=== PATIENT | female | born 1955 | race Caucasian/White ===

== ENCOUNTER 2017-11-29 13:08 | Emergency (ER) | payer BC ==
[2017-11-29 13:38] VITALS: RESP 18
[2017-11-29] MEDS ORDERED: SODIUM CHLORIDE 0.9% 1,000 ML IV ONE (14:16)
--- NOTE | 2017-11-29 14:19 | ED ---
General Adult HPI - General Chief complaint: Altered Mental Status Stated complaint: headache, short term memory Time Seen by Provider: 11/29/17 14:05 Source: patient, family, RN notes reviewed Mode of arrival: ambulatory Limitations: no limitations - History of Present Illness Initial comments: Patient is a pleasant 62-year-old female presenting to the emergency Department with concerns regarding her memory. Patient has been dealing with a headache close to one month. Headache was gradual onset over a couple of days. Headache is moderate to severe. Headache starts in the back and wraps around to the front on both sides. No nausea vomiting. No weakness. Patient has been more forgetful recently. At one point around a month ago patient became very forgetful and they were concerned she may have had a TIA. Patient does not recall the episode. During another episode 2 days ago patient had decreased responsiveness. Patient's eyes were open however she would not talk or answer questions. - Related Data Home Medications Medication Instructions Recorded Confirmed Calcium Carbonate [Calcium] 600 mg PO DAILY 11/29/17 11/29/17 Ferrous Sulfate [Feosol] 325 mg PO DAILY 11/29/17 11/29/17 Multivitamins, Thera [Multivitamin 1 tab PO DAILY 11/29/17 11/29/17 (formulary)] Vitamin C/Biotin [Hair, Skin and 1 tab PO DAILY 11/29/17 11/29/17 Nails] Allergies Allergy/AdvReac Type Severity Reaction Status Date / Time No Known Allergies Allergy Verified 11/29/17 14:18 Review of Systems ROS Statement: Those systems with pertinent positive or pertinent negative responses have been documented in the HPI. ROS Other: All systems not noted in ROS Statement are negative. Constitutional: Denies: fever Eyes: Denies: eye pain ENT: Denies: ear pain Respiratory: Denies: cough Cardiovascular: Denies: chest pain Endocrine: Denies: fatigue Gastrointestinal: Denies: abdominal pain Genitourinary: Denies: dysuria Musculoskeletal: Denies: back pain Skin: Denies: rash Neurological: Reports: headache, confusion. Denies: weakness Past Medical History Past Medical History: No Reported History History of Any Multi-Drug Resistant Organisms: None Reported Past Surgical History: No Surgical Hx Reported Past Psychological History: No Psychological Hx Reported Smoking Status: Never smoker Past Alcohol Use History: Occasional Past Drug Use History: None Reported General Exam Limitations: no limitations General appearance: alert, in no apparent distress Head exam: Present: atraumatic Eye exam: Present: normal appearance, PERRL, EOMI. Absent: nystagmus ENT exam: Present: normal oropharynx Neck exam: Present: normal inspection Respiratory exam: Present: normal lung sounds bilaterally Cardiovascular Exam: Present: regular rate, normal rhythm GI/Abdominal exam: Present: soft. Absent: tenderness Extremities exam: Present: normal inspection Neurological exam: Present: alert, oriented X3, CN II-XII intact. Absent: motor sensory deficit Expanded Neurological exam: Present: protecting the airway Patient oriented to: Present: person, place, time Speech: Present: fluid speech Cranial nerves: EOM's Intact: Normal, Facial Sensation: Normal Cerebellar function: Finger to Nose: Normal Sensory exam: Upper Extremity Light Touch: Normal, Lower Extremity Light Touch: Normal Motor strength exam: RUE: 5, LUE: 5, RLE: 5, LLE: 5 Eye Response: (4) open spontaneously Motor Response: (6) obeys commands Verbal Response: (5) oriented Psychiatric exam: Present: normal affect, normal mood Skin exam: Present: normal color Course Vital Signs 11/29/17 11/29/17 13:33 15:44 Temperature 98.1 F 97.5 F L Pulse Rate 91 81 Respiratory 18 18 Rate Blood Pressure 143/87 137/73 O2 Sat by Pulse 100 98 Oximetry - Reevaluation(s) Reevaluation #1: 11/29/17 15:36 Case was discussed in detail with Dr. Sr who does recommend Decadron and 25 g of mannitol and transfer. EKG Findings - EKG Comments: EKG Findings:: Normal sinus rhythm 84. AL 140. QRS 70. QT 358. QTC 423. Normal axis. Normal QRS. No acute ST change. Medical Decision Making - Medical Decision Making Patient reevaluated. Patient and family updated. Case was just with Dr. Hurley who does recommend transfer for neurosurgery evaluation. He recommends Decadron and 25 of mannitol. Family does request [facility]. [facility] - Lab Data Result diagrams: 11/29/17 13:50 11/29/17 13:50 Lab Results 11/29/17 11/29/17 11/29/17 Range/Units 13:50 13:50 13:50 WBC 9.4 (3.8-10.6) k/uL RBC 4.38 (3.80-5.40) m/uL Hgb 13.6 (11.4-16.0) gm/dL Hct 41.7 (34.0-46.0) % MCV 95.3 (80.0-100.0) fL MCH 31.0 (25.0-35.0) pg MCHC 32.5 (31.0-37.0) g/dL RDW 12.6 (11.5-15.5) % Plt Count 228 (150-450) k/uL Neutrophils % 76 % Lymphocytes % 16 % Monocytes % 5 % Eosinophils % 1 % Basophils % 1 % Neutrophils # 7.2 (1.3-7.7) k/uL Lymphocytes # 1.5 (1.0-4.8) k/uL Monocytes # 0.4 (0-1.0) k/uL Eosinophils # 0.1 (0-0.7) k/uL Basophils # 0.1 (0-0.2) k/uL PT (9.0-12.0) sec INR (<1.2) APTT (22.0-30.0) sec Sodium 139 (137-145) mmol/L Potassium 4.6 (3.5-5.1) mmol/L Chloride 107 (98-107) mmol/L Carbon Dioxide 26 (22-30) mmol/L Anion Gap 6 mmol/L BUN 14 (7-17) mg/dL Creatinine 0.63 (0.52-1.04) mg/dL Est GFR (CKD-EPI)AfAm >90 (>60 ml/min/1.73 sqM) Est GFR (CKD-EPI)NonAf >90 (>60 ml/min/1.73 sqM) Glucose 100 H (74-99) mg/dL POC Glucose (mg/dL) (75-99) mg/dL POC Glu Hop Strainer ID Calcium 9.1 (8.4-10.2) mg/dL Total Bilirubin 0.2 (0.2-1.3) mg/dL AST 26 (14-36) U/L ALT 18 (9-52) U/L Alkaline Phosphatase 48 (38-126) U/L Total Creatine Kinase 50 (30-135) U/L CK-MB (CK-2) 0.5 (0.0-2.4) ng/mL CK-MB (CK-2) Rel Index 1.0 Troponin I <0.012 (0.000-0.034) ng/mL Total Protein 5.9 L (6.3-8.2) g/dL Albumin 3.4 L (3.5-5.0) g/dL Urine Color Urine Appearance (Clear) Urine pH (5.0-8.0) Ur Specific [place] (1.001-1.035) Urine Protein (Negative) Urine Glucose (UA) (Negative) Urine Ketones (Negative) Urine Blood (Negative) Urine Nitrite (Negative) Urine Bilirubin (Negative) Urine Urobilinogen (<2.0) mg/dL Ur Leukocyte Esterase (Negative) Urine WBC (0-5) /hpf Urine Bacteria (None) /hpf Urine Mucus (None) /hpf Urine Opiates Screen (NotDetected) Ur Oxycodone Screen (NotDetected) Urine Methadone Screen (NotDetected) Ur Propoxyphene Screen (NotDetected) Ur Barbiturates Screen (NotDetected) U Tricyclic Antidepress (NotDetected) Ur Phencyclidine Scrn (NotDetected) Ur Amphetamines Screen (NotDetected) U Methamphetamines Scrn (NotDetected) U Benzodiazepines Scrn (NotDetected) Urine Cocaine Screen (NotDetected) U Marijuana (THC) Screen (NotDetected) 11/29/17 11/29/17 11/29/17 Range/Units 13:50 13:50 14:25 WBC (3.8-10.6) k/uL RBC (3.80-5.40) m/uL Hgb (11.4-16.0) gm/dL Hct (34.0-46.0) % MCV (80.0-100.0) fL MCH (25.0-35.0) pg MCHC (31.0-37.0) g/dL RDW (11.5-15.5) % Plt Count (150-450) k/uL Neutrophils % % Lymphocytes % % Monocytes % % Eosinophils % % Basophils % % Neutrophils # (1.3-7.7) k/uL Lymphocytes # (1.0-4.8) k/uL Monocytes # (0-1.0) k/uL Eosinophils # (0-0.7) k/uL Basophils # (0-0.2) k/uL PT 9.7 (9.0-12.0) sec INR 1.0 (<1.2) APTT 21.5 L (22.0-30.0) sec Sodium (137-145) mmol/L Potassium (3.5-5.1) mmol/L Chloride (98-107) mmol/L Carbon Dioxide (22-30) mmol/L Anion Gap mmol/L BUN (7-17) mg/dL Creatinine (0.52-1.04) mg/dL Est GFR (CKD-EPI)AfAm (>60 ml/min/1.73 sqM) Est GFR (CKD-EPI)NonAf (>60 ml/min/1.73 sqM) Glucose (74-99) mg/dL POC Glucose (mg/dL) 94 (75-99) mg/dL POC Glu Hop Strainer ID [place] Calcium (8.4-10.2) mg/dL Total Bilirubin (0.2-1.3) mg/dL AST (14-36) U/L ALT (9-52) U/L Alkaline Phosphatase (38-126) U/L Total Creatine Kinase (30-135) U/L CK-MB (CK-2) (0.0-2.4) ng/mL CK-MB (CK-2) Rel Index Troponin I (0.000-0.034) ng/mL Total Protein (6.3-8.2) g/dL Albumin (3.5-5.0) g/dL Urine Color Colorless Urine Appearance Clear (Clear) Urine pH 5.5 (5.0-8.0) Ur Specific [place] 1.003 (1.001-1.035) Urine Protein Negative (Negative) Urine Glucose (UA) Negative (Negative) Urine Ketones Negative (Negative) Urine Blood Negative (Negative) Urine Nitrite Negative (Negative) Urine Bilirubin Negative (Negative) Urine Urobilinogen <2.0 (<2.0) mg/dL Ur Leukocyte Esterase Small H (Negative) Urine WBC 2 (0-5) /hpf Urine Bacteria Rare H (None) /hpf Urine Mucus Rare H (None) /hpf Urine Opiates Screen Not Detected (NotDetected) Ur Oxycodone Screen Not Detected (NotDetected) Urine Methadone Screen Not Detected (NotDetected) Ur Propoxyphene Screen Not Detected (NotDetected) Ur Barbiturates Screen Not Detected (NotDetected) U Tricyclic Antidepress Not Detected (NotDetected) Ur Phencyclidine Scrn Not Detected (NotDetected) Ur Amphetamines Screen Not Detected (NotDetected) U Methamphetamines Scrn Not Detected (NotDetected) U Benzodiazepines Scrn Not Detected (NotDetected) Urine Cocaine Screen Not Detected (NotDetected) U Marijuana (THC) Screen Not Detected (NotDetected) - Radiology Data Radiology results: image reviewed (Computed tomography scan of the brain shows large area of edema and mass 3 x 6 x 4 cm. There is midline shift the proximal he 5 mm with subfalcine herniation and contralateral temporal horn dilation. Suspicious for brainstem compression. Small bubble of air in the CSF space anterior to the cerebellum. Sulcal effacement) Disposition Clinical Impression: Brain mass Disposition: OTHER INSTITUTION NOT DEFINED Is patient prescribed a controlled substance at d/c from ED?: No Referrals: Savi Perkins MD [Primary Care Provider] - 1-2 days Time of Disposition: 15:54 - Out of Hospital Transfer - Req. Specs Out of Hospital Transfer - Requested Specifics: Other Emergency Center
[2017-11-29 14:28] LABS: Glucose,Whole Blood 94 mg/dL (75-99)
[2017-11-29 14:33] LABS: Basophils # (A) 0.1 k/uL (0-0.2); Basophils % (A) 1 %; Eosinophils # (A) 0.1 k/uL (0-0.7); Eosinophils % (A) 1 %; HCT 41.7 % (34.0-46.0); HGB 13.6 gm/dL (11.4-16.0); Lymphocytes # (A) 1.5 k/uL (1.0-4.8); Lymphocytes % (A) 16 %; MCHC 32.5 g/dL (31.0-37.0); MCV 95.3 fL (80.0-100.0); Mean Platelet Volume 8.4; Monocytes # (A) 0.4 k/uL (0-1.0); Monocytes % (A) 5 %; Neutrophils # (A) 7.2 k/uL (1.3-7.7); Neutrophils % (A) 76 %; Platelet Count 228 k/uL (150-450); RBC 4.38 m/uL (3.80-5.40); RDW 12.6 % (11.5-15.5); WBC 9.4 k/uL (3.8-10.6)
[2017-11-29 14:40] LABS: Appearance,Urine Clear (Clear); Bacteria,Urine Rare /hpf; Bilirubin,Urine Negative (Negative); Blood,Urine Negative (Negative); Color,Urine Colorless; Glucose,Urine (UA) Negative (Negative); Ketones,Urine Negative (Negative); Leukocyte Esterase,Urine Small (Negative); Mucus,Urine Rare /hpf; Nitrite,Urine Negative (Negative); PH, Urine 5.5 (5.0-8.0); Protein,Urine Negative (Negative); Specific Gravity,Urine 1.003 (1.001-1.035); Urobilinogen,Urine <2.0 mg/dL (<2.0); WBC,Urine 2 /hpf (0-5)
[2017-11-29 14:45] LABS: ALT 18 U/L (9-52); AST 26 U/L (14-36); Albumin 3.4 g/dL (3.5-5.0); Alkaline Phosphatase 48 U/L (38-126); Anion Gap 6 mmol/L; Blood Urea Nitrogen 14 mg/dL (7-17); Calcium 9.1 mg/dL (8.4-10.2); Carbon Dioxide 26 mmol/L (22-30); Chloride 107 mmol/L (98-107); Glucose 100 mg/dL (74-99); Potassium 4.6 mmol/L (3.5-5.1); Sodium 139 mmol/L (137-145); Total Bilirubin 0.2 mg/dL (0.2-1.3); Total Protein 5.9 g/dL (6.3-8.2)
[2017-11-29 14:46] LABS: Amphetamine Screen,Urine Not Detected (NotDetected); Barbiturate Screen,Urine Not Detected (NotDetected); Benzodiazepines Screen,Urine Not Detected (NotDetected); Cocaine Screen,Urine Not Detected (NotDetected); Methadone Screen, Urine Not Detected (NotDetected); Opiate Screen,Urine Not Detected (NotDetected); Oxycodone Screen, Urine Not Detected (NotDetected); Phencyclidine Screen,Urine Not Detected (NotDetected); Tricyclic Antidepressant,Urine Not Detected (NotDetected); Urn Cannabinoid Scrn Not Detected (NotDetected)
[2017-11-29 14:52] LABS: Partial Thromboplastin Time 21.5 sec (22.0-30.0); Prothrombin Time 9.7 sec (9.0-12.0)
[2017-11-29 14:58] LABS: Creatine Kinase 50 U/L (30-135)
--- NOTE | 2017-11-29 15:01 | P.CONS ---
History of Present Illness - Reason for Consult Possible admission/ hospitalization - History of Present Illness Patient came to ER with complaints of 62-year-old female came in the emergency department with the problems of headache and neck pain on the right side of the neck radiating to the head no significant or tingling numbness. No focal weakness. No speech abnormality. The reason ER physician wanted to admit the patient is patient occasionally has on and off memory difficulties symptomatology consistent with a transient global amnesia for which we need to rule out stroke or TIA. Same thing was discussed with the patient. No lab data CAT scan is available yet CAT scan was ordered basic lab testing was ordered from ER. And had an extensive discussion with the patient regarding the reasoning behind monitoring one night as an observation to rule out TIA or stroke but patient is not willing to stay in the hospital. Patient will benefit from anti-inflammatories for her neck pain and degenerative neck disease contributing to her headache. Patient is already taking ibuprofen at home may benefit from tramadol and outpatient physical therapy. Patient denied any fever chills dysuria nausea vomiting. Patient doesn't have any major medical problems doesn't use any medications at home. Review of Systems REVIEW OF SYSTEMS: CONSTITUTIONAL: No fever, no malaise, no fatigue. HEENT: No recent visual problems or hearing problems. Denied any sore throat. CARDIOVASCULAR: No chest pain, orthopnea, PND, no palpitations, no syncope. PULMONARY: No shortness of breath, no cough, no hemoptysis. GASTROINTESTINAL: No diarrhea, no nausea, no vomiting, no abdominal pain. Normoactive bowel sounds. NEUROLOGICAL: As mentioned in HPI HEMATOLOGICAL: Denies any bleeding or petechiae. GENITOURINARY: Denies any burning micturition, frequency, or urgency. MUSCULOSKELETAL/RHEUMATOLOGICAL: Denies any joint pain, swelling, or any muscle pain. ENDOCRINE: Denies any polyuria or polydipsia. The rest of the 14-point review of systems is negative. Past Medical History Past Medical History: No Reported History History of Any Multi-Drug Resistant Organisms: None Reported Past Surgical History: No Surgical Hx Reported Past Psychological History: No Psychological Hx Reported Smoking Status: Never smoker Past Alcohol Use History: Occasional Past Drug Use History: None Reported Medications and Allergies Home Medications Medication Instructions Recorded Confirmed Type Calcium Carbonate [Calcium] 600 mg PO DAILY 11/29/17 11/29/17 History Ferrous Sulfate [Feosol] 325 mg PO DAILY 11/29/17 11/29/17 History Multivitamins, Thera [Multivitamin 1 tab PO DAILY 11/29/17 11/29/17 History (formulary)] Vitamin C/Biotin [Hair, Skin and 1 tab PO DAILY 11/29/17 11/29/17 History Nails] Allergies Allergy/AdvReac Type Severity Reaction Status Date / Time No Known Allergies Allergy Verified 11/29/17 14:18 Physical Exam Vitals: Vital Signs Temp Pulse Resp BP Pulse Ox 11/29/17 13:33 98.1 F 91 18 143/87 100 Intake and Output 11/28/17 11/29/17 11/29/17 22:59 06:59 14:59 Other: Weight 62.369 kg PHYSICAL EXAMINATION: GENERAL: The patient is alert and oriented x3, not in any acute distress. Well developed, well nourished. HEENT: Pupils are round and equally reacting to light. EOMI. No scleral icterus. No conjunctival pallor. Normocephalic, atraumatic. No pharyngeal erythema. No thyromegaly. CARDIOVASCULAR: S1 and S2 present. No murmurs, rubs, or gallops. PULMONARY: Chest is clear to auscultation, no wheezing or crackles. ABDOMEN: Soft, nontender, nondistended, normoactive bowel sounds. No palpable organomegaly. MUSCULOSKELETAL: No joint swelling or deformity. EXTREMITIES: No cyanosis, clubbing, or pedal edema. NEUROLOGICAL: Gross neurological examination did not reveal any focal deficits. SKIN: No rashes. Results CBC & Chem 7: 11/29/17 13:50 11/29/17 13:50 Labs: Abnormal Lab Results - Last 24 Hours (Table) 11/29/17 11/29/17 11/29/17 Range/Units 13:50 13:50 13:50 APTT 21.5 L (22.0-30.0) sec Glucose 100 H (74-99) mg/dL Total Protein 5.9 L (6.3-8.2) g/dL Albumin 3.4 L (3.5-5.0) g/dL Ur Leukocyte Esterase Small H (Negative) Urine Bacteria Rare H (None) /hpf Urine Mucus Rare H (None) /hpf Assessment and Plan Plan: -Neck pain and headache secondary to degenerative neck disease. As mentioned above patient will required nonsteroidal anti-inflammatory is -Transient memory loss process possible transient global amnesia awaiting CAT scan of the head. Patient doesn't want to stay in the hospital. If patient is willing to stay in the hospital will do TIA workup with the neurology evaluation along with carotid Doppler echocardiogram and a lipid panel and patient was started on aspirin and a statin.
[2017-11-29 15:08] LABS: Creatine Kinase MB 0.5 ng/mL (0.0-2.4); Troponin I <0.012 ng/mL (0.000-0.034)
--- NOTE | 2017-11-29 15:22 | CT ---
EXAMINATION TYPE: CT brain wo/w con DATE OF EXAM: 11/29/2017 COMPARISON: None HISTORY: Headaches x 1 month. Confusion past few days. CT DLP: 2150.3 mGycm Automated exposure control for dose reduction was used. CONTRAST: CT scan of the head is performed without and with IV Contrast, patient injected with 100 mL of Isovue 370. FINDINGS: There is a large area of vasogenic edema involving the right parietal and temporal lobes. There is a rim-enhancing heterogeneous mass measuring 6 x 4.3 cm. There appears to be subfalcine herniation with mass effect of the lateral ventricle measuring approximately 4 to 5 mm. Additionally there is slight dilation of the contralateral temporal horn. The mass does encroach upon the midbrain in a degree of brainstem compression is suspected. There is either air or fat attenuation within the cistern posterior to the midbrain and anterior to t he cerebellum. This is of uncertain etiology. Measures -70 Hounsfield units. There is sulcal effacement involving the right cerebral sulci diffusely may be related to the diffuse vasogenic edema. MRI recommended for further assessment. IMPRESSION: 1. Large area of vasogenic edema with a large mass occupying the right temporal and portions of the r ight parietal lobe measuring 6 x 4 x 3 cm. There is midline shift of approximately 5 mm with subfalci ne herniation and there is contralateral temporal horn dilation suspicious for brainstem compression. Differential diagnosis includes glioblastoma, anaplastic astrocytoma, although metastases not exclud ed. Case discussed with the ER physician by telephone. 2. There is a small bubble of air within the CSF space anterior to the cerebellum and posterior to th e midbrain of uncertain etiology, correlate clinically. 3. Diffuse sulcal effacement involving the right cerebral hemisphere compared to the left likely seco ndary to the vasogenic edema from the neoplastic process rather than representing ischemic change. MR I recommended.
--- NOTE | 2017-11-29 15:24 | XR ---
EXAMINATION TYPE: XR chest 2V DATE OF EXAM: 11/29/2017 COMPARISON: NONE HISTORY: Altered mental status, headache TECHNIQUE: Frontal and lateral views of the chest are obtained. FINDINGS: Patient is rotated. Prominent lung volume could be indicative of underlying COPD. There is eventration of the right hemidiaphragm. There is no focal air space opacity, pleural effusion, or pne umothorax seen. The cardiac silhouette size is within normal limits. The osseous structures are in tact. IMPRESSION: No acute cardiopulmonary process.
[2017-11-29] MEDS ORDERED: DEXAMETHASONE SOD PHOSPHATE 10 MG/ML 1 ML VIAL IV STA (15:35)
[2017-11-29] MEDS ORDERED: MANNITOL 25% 12.5 GM/50 ML VIAL IV STA (15:41)
[2017-11-29] MEDS ORDERED: MANNITOL IV ONE (16:00)
[2017-11-29 16:48] VITALS: BP 128/82; PULSE 87; TEMP 98.9
== END 2017-11-29 17:05 | disposition other institution (70) ==
LOC: EC 13:08
DX: G93.89 Other specified disorders of brain (principal); Z79.899 Other long term (current) drug therapy
CPT/HCPCS: 36415; 93005; 80053; 82550; 82553; 84484; 85025; 85610; 85730; 81001; 80306; 71046; 70470; 99285; 96365; 96375; 96361 ×2; J1100; J2150; Q9967

== ENCOUNTER 2018-02-13 14:48 | Emergency (ER) | payer BC ==
[2018-02-13] MEDS ORDERED: SODIUM CHLORIDE 0.9% 1,000 ML IV STA ×2 (15:42→17:01)
[2018-02-13 16:03] LABS: Basophils % (A) 1 %; Eosinophils # (A) 0.1 k/uL (0-0.7); Eosinophils % (A) 1 %; HCT 37.4 % (34.0-46.0); HGB 12.9 gm/dL (11.4-16.0); Lymphocytes # (A) 0.7 k/uL (1.0-4.8); Lymphocytes % (A) 10 %; MCH 31.3 pg (25.0-35.0); MCHC 34.4 g/dL (31.0-37.0); MCV 91.1 fL (80.0-100.0); Mean Platelet Volume 7.4; Monocytes # (A) 0.6 k/uL (0-1.0); Monocytes % (A) 8 %; Neutrophils # (A) 5.6 k/uL (1.3-7.7); Neutrophils % (A) 80 %; Platelet Count 256 k/uL (150-450); RBC 4.11 m/uL (3.80-5.40); RDW 12.7 % (11.5-15.5); WBC 7.1 k/uL (3.8-10.6)
[2018-02-13] MEDS ORDERED: ACETAMINOPHEN TAB 325 MG TAB PO STA (16:06)
[2018-02-13 16:12] LABS: ALT 11 U/L (9-52); AST 56 U/L (14-36); Albumin 4.1 g/dL (3.5-5.0); Alkaline Phosphatase 59 U/L (38-126); Anion Gap 11 mmol/L; Blood Urea Nitrogen 11 mg/dL (7-17); Calcium 9.2 mg/dL (8.4-10.2); Carbon Dioxide 24 mmol/L (22-30); Chloride 93 mmol/L (98-107); Glucose 114 mg/dL (74-99); Magnesium 1.8 mg/dL (1.6-2.3); Phosphorus 4.8 mg/dL (2.5-4.5); Sodium 128 mmol/L (137-145); Total Bilirubin 1.2 mg/dL (0.2-1.3); Total Protein 8.2 g/dL (6.3-8.2)
[2018-02-13 16:13] LABS: Partial Thromboplastin Time 23.9 sec (22.0-30.0); Prothrombin Time 10.7 sec (9.0-12.0)
[2018-02-13 16:17] LABS: Creatine Kinase 171 U/L (30-135)
--- NOTE | 2018-02-13 16:22 | ED ---
Weakness HPI <Matthew Roberts - Last Filed: 02/13/18 17:12> - General Source: patient, RN notes reviewed Mode of arrival: ambulatory Limitations: no limitations <Hussein Covarrubias - Last Filed: 02/13/18 17:33> - General Chief complaint: Weakness Stated complaint: Weakness, Altered, CA PA Time Seen by Provider: 02/13/18 15:06 - History of Present Illness Initial comments: This a 62-year-old female presents emergency department with family chief complaint of weakness. Patient had increasing weakness last few days and they have noticed that she's had increased weakness primarily left side. Patient does have known brain cancer the right temporal region. Patient is on chemo and radiation. She was scheduled for radiation treatment today but was advised , emergency department secondary to increased weakness. She complains of generalized weakness families notice her having difficulty with ambulation and noticed some increased unilateral weakness on the left. Patient states that she 's had a slight cough and some shortness of breath with no current chest pain. Denies any known fever prior to arriving to the emergency department. Patient denies any current nausea, vomiting. Patient does take chronic pain meds for her headaches secondary to brain cancer. Patient was unable to ambulate by herself which is abnormal. Patient denies sore throat, ear pain, dysuria, hematuria, diarrhea constipation. (Hussein Covarrubias) - Related Data Home Medications Medication Instructions Recorded Confirmed ALPRAZolam [Xanax] 1 mg PO DAILY 02/13/18 02/13/18 Dexamethasone [Decadron] 4 mg PO DAILY 02/13/18 02/13/18 HYDROcodone/APAP 5-325MG [[place] 1 tab PO Q6HR PRN 02/13/18 02/13/18 5-325] Lactulose 10 gm PO BID PRN 02/13/18 02/13/18 Morphine Sulfate ER [Ms Contin] 15 mg PO Q12HR 02/13/18 02/13/18 Ondansetron [Zofran ODT] 8 mg PO Q8HR 02/13/18 02/13/18 Pantoprazole Sodium [Protonix] 40 mg PO DAILY 02/13/18 02/13/18 Sulfamethox-Tmp 800-160Mg [Bactrim 1 tab PO MOWEFR 02/13/18 02/13/18 DS 800-160 mg] levETIRAcetam [Keppra] 500 mg PO Q12HR 02/13/18 02/13/18 Allergies Allergy/AdvReac Type Severity Reaction Status Date / Time No Known Allergies Allergy Verified 02/13/18 15:18 Review of Systems ROS Other: All systems not noted in ROS Statement are negative. <Matthew Roberts - Last Filed: 02/13/18 17:12> ROS Other: All systems not noted in ROS Statement are negative. <Hussein Covarrubias - Last Filed: 02/13/18 17:33> ROS Statement: Those systems with pertinent positive or pertinent negative responses have been documented in the HPI. Past Medical History Past Medical History: Cancer Additional Past Medical History / Comment(s): brain cancer History of Any Multi-Drug Resistant Organisms: None Reported Past Surgical History: No Surgical Hx Reported Additional Past Surgical History / Comment(s): pt had brain tumor removal 11/2017 Past Psychological History: No Psychological Hx Reported Smoking Status: Former smoker Past Alcohol Use History: Occasional Past Drug Use History: None Reported <Hussein Covarrubias - Last Filed: 02/13/18 17:33> General Exam Limitations: no limitations General appearance: alert, in no apparent distress Head exam: Present: atraumatic, normocephalic, normal inspection Eye exam: Present: normal appearance, PERRL, EOMI. Absent: scleral icterus, conjunctival injection, periorbital swelling ENT exam: Present: normal exam, normal oropharynx, mucous membranes moist, TM's normal bilaterally, normal external ear exam Neck exam: Present: normal inspection, full ROM. Absent: tenderness, meningismus, lymphadenopathy Respiratory exam: Present: normal lung sounds bilaterally. Absent: respiratory distress, wheezes, rales, rhonchi, stridor Cardiovascular Exam: Present: regular rate, normal rhythm, normal heart sounds. Absent: systolic murmur, diastolic murmur, rubs, gallop, clicks GI/Abdominal exam: Present: soft, normal bowel sounds. Absent: distended, tenderness, guarding, rebound, rigid Extremities exam: Present: other (Strength 3/5 on the left 5/5 on the right upper and lower extremities pulses equal bilaterally) Neurological exam: Present: alert, oriented X3, CN II-XII intact Skin exam: Present: warm, dry, intact, normal color. Absent: rash <Hussein Covarrubias - Last Filed: 02/13/18 17:33> Course <Matthew Roberts - Last Filed: 02/13/18 17:12> <Hussein Covarrubias - Last Filed: 02/13/18 17:33> Vital Signs 02/13/18 02/13/18 02/13/18 14:59 15:30 16:00 Temperature 102.4 F H Pulse Rate 96 89 88 Respiratory 18 23 16 Rate Blood Pressure 121/83 126/68 115/84 O2 Sat by Pulse 97 95 Oximetry 02/13/18 02/13/18 16:30 17:00 Temperature Pulse Rate 88 Respiratory 23 Rate Blood Pressure 118/65 118/65 O2 Sat by Pulse Oximetry - Reevaluation(s) Reevaluation #1: 02/13/18 17:06 Patient reevaluated by myself, Dr. Roberts. Patient brought in by family secondary to increased weakness over the last couple of days. On exam patient does have mild left arm weakness. No significant leg weakness. Patient complains of feeling fatigued. CT report reviewed from radiologist. Patient and family were updated. Ceftazadime has been ordered. Dr. douglas has been paged 02/13/18 17:12 Case was discussed in detail with Dr. Hurley who does agree with transfer back to [facility]. (Matthew Roberts) EKG Findings - EKG Comments: EKG Findings:: EKG performed at 15:26 normal sinus rhythm with a rate of 97 VT 140 QRS 72 QT/QTC 346/439 <Hussein Covarrubias - Last Filed: 02/13/18 17:33> Medical Decision Making - Lab Data Result diagrams: 02/13/18 15:45 02/13/18 15:45 <Matthew Roberts - Last Filed: 02/13/18 17:12> - Lab Data Result diagrams: 02/13/18 15:45 02/13/18 15:45 <Hussein Covarrubias - Last Filed: 02/13/18 17:33> - Medical Decision Making 62-year-old female presents emergency from for increased weakness. Patient does have notable denies weakness with increased left-sided weakness. CT shows fluid collection hematoma versus seroma. Patient has postsurgical glioblastoma at [facility]. Patient case discussed with oncologist recommends transfer back to cystitis surgery. Patient is stable. Patient does have fever with no clear source at this time. Antibiotics are ordered empirically. Patient also has elevated potassium though specimen is hemolyzed redraw for recheck potassium. Patient chest x-ray reviewed abnormality. Urinalysis is pending. ( Hussein Covarrubias) - Lab Data Lab Results 02/13/18 02/13/18 02/13/18 Range/Units 15:45 15:45 15:45 WBC 7.1 (3.8-10.6) k/uL RBC 4.11 (3.80-5.40) m/uL Hgb 12.9 (11.4-16.0) gm/dL Hct 37.4 (34.0-46.0) % MCV 91.1 (80.0-100.0) fL MCH 31.3 (25.0-35.0) pg MCHC 34.4 (31.0-37.0) g/dL RDW 12.7 (11.5-15.5) % Plt Count 256 (150-450) k/uL Neutrophils % 80 % Lymphocytes % 10 % Monocytes % 8 % Eosinophils % 1 % Basophils % 1 % Neutrophils # 5.6 (1.3-7.7) k/uL Lymphocytes # 0.7 L (1.0-4.8) k/uL Monocytes # 0.6 (0-1.0) k/uL Eosinophils # 0.1 (0-0.7) k/uL Basophils # 0.0 (0-0.2) k/uL PT (9.0-12.0) sec INR (<1.2) APTT (22.0-30.0) sec Sodium 128 L (137-145) mmol/L Potassium 6.1 H* (3.5-5.1) mmol/L Chloride 93 L (98-107) mmol/L Carbon Dioxide 24 (22-30) mmol/L Anion Gap 11 mmol/L BUN 11 (7-17) mg/dL Creatinine 0.63 (0.52-1.04) mg/dL Est GFR (CKD-EPI)AfAm >90 (>60 ml/min/1.73 sqM) Est GFR (CKD-EPI)NonAf >90 (>60 ml/min/1.73 sqM) Glucose 114 H (74-99) mg/dL Plasma Lactic Acid Matthew (0.7-2.0) mmol/L Calcium 9.2 (8.4-10.2) mg/dL Phosphorus 4.8 H (2.5-4.5) mg/dL Magnesium 1.8 (1.6-2.3) mg/dL Total Bilirubin 1.2 (0.2-1.3) mg/dL AST 56 H (14-36) U/L ALT 11 (9-52) U/L Alkaline Phosphatase 59 (38-126) U/L Total Creatine Kinase 171 H (30-135) U/L CK-MB (CK-2) 0.9 (0.0-2.4) ng/mL CK-MB (CK-2) Rel Index 0.5 Troponin I <0.012 (0.000-0.034) ng/mL Total Protein 8.2 (6.3-8.2) g/dL Albumin 4.1 (3.5-5.0) g/dL 02/13/18 02/13/18 Range/Units 15:45 15:45 WBC (3.8-10.6) k/uL RBC (3.80-5.40) m/uL Hgb (11.4-16.0) gm/dL Hct (34.0-46.0) % MCV (80.0-100.0) fL MCH (25.0-35.0) pg MCHC (31.0-37.0) g/dL RDW (11.5-15.5) % Plt Count (150-450) k/uL Neutrophils % % Lymphocytes % % Monocytes % % Eosinophils % % Basophils % % Neutrophils # (1.3-7.7) k/uL Lymphocytes # (1.0-4.8) k/uL Monocytes # (0-1.0) k/uL Eosinophils # (0-0.7) k/uL Basophils # (0-0.2) k/uL PT 10.7 (9.0-12.0) sec INR 1.0 (<1.2) APTT 23.9 (22.0-30.0) sec Sodium (137-145) mmol/L Potassium (3.5-5.1) mmol/L Chloride (98-107) mmol/L Carbon Dioxide (22-30) mmol/L Anion Gap mmol/L BUN (7-17) mg/dL Creatinine (0.52-1.04) mg/dL Est GFR (CKD-EPI)AfAm (>60 ml/min/1.73 sqM) Est GFR (CKD-EPI)NonAf (>60 ml/min/1.73 sqM) Glucose (74-99) mg/dL Plasma Lactic Acid Matthew 1.3 (0.7-2.0) mmol/L Calcium (8.4-10.2) mg/dL Phosphorus (2.5-4.5) mg/dL Magnesium (1.6-2.3) mg/dL Total Bilirubin (0.2-1.3) mg/dL AST (14-36) U/L ALT (9-52) U/L Alkaline Phosphatase (38-126) U/L Total Creatine Kinase (30-135) U/L CK-MB (CK-2) (0.0-2.4) ng/mL CK-MB (CK-2) Rel Index Troponin I (0.000-0.034) ng/mL Total Protein (6.3-8.2) g/dL Albumin (3.5-5.0) g/dL Disposition <Matthew Roberts - Last Filed: 02/13/18 17:12> Time of Disposition: 17:32 - Out of Hospital Transfer - Req. Specs Out of Hospital Transfer - Requested Specifics: Other Emergency Center ([facility]) <Hussein Covarrubias - Last Filed: 02/13/18 17:33> Clinical Impression: Left-sided weakness, Epidural hematoma, Fever, unknown origin Disposition: OTHER INSTITUTION NOT DEFINED Condition: Stable Referrals: Yosvany Delarosa MD [Primary Care Provider] - 1-2 days
[2018-02-13 16:30] LABS: Creatine Kinase MB 0.9 ng/mL (0.0-2.4); Troponin I <0.012 ng/mL (0.000-0.034)
--- NOTE | 2018-02-13 16:34 | XR ---
EXAMINATION TYPE: XR chest 2V DATE OF EXAM: 02/13/2018 COMPARISON: Prior chest x-ray 11/29/2017 HISTORY: Weakness and altered mental status TECHNIQUE: Frontal and lateral views of the chest are obtained. FINDINGS: There is no focal air space opacity, pleural effusion, or pneumothorax seen. The cardiac silhouette size is within normal limits. The osseous structures are intact. IMPRESSION: No acute cardiopulmonary process.
--- NOTE | 2018-02-13 16:42 | CT ---
EXAMINATION TYPE: CT brain wo con DATE OF EXAM: 02/13/2018 COMPARISON: 11/29/2017 HISTORY: Weakness and unusual smells. Post OP tumor removal in Nov 2017 CT DLP: 1172.4 mGycm Automated exposure control for dose reduction was used. FINDINGS: There is epidural fluid collection over the right temporal lobe that measures up to 11 mm in thicknes s. There is right temporal craniotomy defect. There are small epidural air bubble. There is hypodensity in the white matter of the right temporal lobe consistent with edema. There is s ome effacement of the right lateral ventricle. There is slight shift of the midline to the left side. This is similar to the preoperative exam of 11/29/2017. I see no evidence of acute intracranial hemor rhage. IMPRESSION: EPIDURAL FLUID COLLECTION OVER THE RIGHT TEMPORAL LOBE CONSISTENT WITH CHRONIC HEMATOMA OR SEROMA. TH IS IS NEW COMPARED TO THE PREOPERATIVE EXAM. RIGHT TEMPORAL LOBE EDEMA UNCHANGED. THERE IS ENCEPHALOM ALACIA IN THE ANTERIOR RIGHT TEMPORAL LOBE IN THE MIDDLE CRANIAL FOSSA. IS CONSISTENT WITH TUMOR SURG BERENICE. There is no significant change in the mass effect in the right cerebral hemisphere.
[2018-02-13 16:46] LABS: Potassium 6.1 mmol/L (3.5-5.1)
[2018-02-13 17:27] LABS: Appearance,Urine Clear (Clear); Bilirubin,Urine Negative (Negative); Blood,Urine Negative (Negative); Color,Urine Yellow; Glucose,Urine (UA) Negative (Negative); Ketones,Urine Negative (Negative); Leukocyte Esterase,Urine Small (Negative); Mucus,Urine Rare /hpf; Nitrite,Urine Negative (Negative); PH, Urine 6.5 (5.0-8.0); Protein,Urine Trace (Negative); RBC,Urine 2 /hpf (0-5); Squamous Epithelial Cell,Urine 1 /hpf (0-4); Urobilinogen,Urine <2.0 mg/dL (<2.0); WBC,Urine 6 /hpf (0-5)
[2018-02-13 18:00] VITALS: BP 104/68; PULSE 91; RESP 16; TEMP 101.9
== END 2018-02-13 18:22 | disposition other institution (70) ==
LOC: EC 14:48
DX: I62.1 Nontraumatic extradural hemorrhage (principal); M62.81 Muscle weakness (generalized); R50.9 Fever, unspecified; R05 Cough; R06.02 Shortness of breath; C71.9 Malignant neoplasm of brain, unspecified; Z87.891 Personal history of nicotine dependence; Z79.899 Other long term (current) drug therapy; Z79.891 Long term (current) use of opiate analgesic
CPT/HCPCS: 36415; 93005; 80053; 82550; 82553; 83605; 83735; 84100; 84484; 85025; 85610; 85730; 81001; 87040; 87086; 87502; 71046; 70450; 99285; 96360; 96361; J0713

== ENCOUNTER 2018-05-10 14:12 | Emergency (ER) | payer BC ==
[2018-05-10 14:46] VITALS: TEMP 97.4
[2018-05-10] MEDS ORDERED: SODIUM CHLORIDE 0.9% 1,000 ML IV STA (15:31)
[2018-05-10] MEDS ORDERED: PHYTONADIONE 10 MG in SODIUM CHLORIDE 0.9% 50 ML IVPB STA (15:57)
[2018-05-10] MEDS ORDERED: PHYTONADIONE ORAL 5 MG/5 ML ORAL.SYRG PO STA (16:00)
--- NOTE | 2018-05-10 16:07 | ED ---
Recheck HPI - General Chief Complaint: Recheck/Abnormal Lab/Rx Stated Complaint: wyatt- Needs vitamin K shot Time Seen by Provider: 05/10/18 15:29 Source: patient, RN notes reviewed, old records reviewed Mode of arrival: ambulatory Limitations: no limitations - History of Present Illness Initial Comments: This is a 63-year-old female the ER for evaluate her INR. He's had 4 days of elevated INR, sent in by primary care for management of INR today. Patient has no complaints no bleeding. No blood in the urine no blood in stool. No nausea vomiting. Otherwise feels fine MD Complaint: abnormal lab (Elevated INR) -: unknown Returns Today for: Called Because of Abnormal Lab/Test Symptoms Since Prior Visit: no new symptoms Context: called for abnormal lab result Associated Symptoms: none - Related Data Home Medications Medication Instructions Recorded Confirmed Dexamethasone [Decadron] 4 mg PO Q8H 02/13/18 05/10/18 HYDROcodone/APAP 5-325MG [[place] 1 tab PO Q6HR PRN 02/13/18 05/10/18 5-325] Dronabinol [Marinol] 5 mg PO AC-BID 05/10/18 05/10/18 Multivitamins, Thera [Multivitamin 1 tab PO DAILY 05/10/18 05/10/18 (formulary)] Warfarin [Coumadin] 5 mg PO DAILY 05/10/18 05/10/18 levETIRAcetam [Keppra] 1,000 mg PO BID 05/10/18 05/10/18 Allergies Allergy/AdvReac Type Severity Reaction Status Date / Time No Known Allergies Allergy Verified 05/10/18 16:18 Review of Systems ROS Statement: Those systems with pertinent positive or pertinent negative responses have been documented in the HPI. ROS Other: All systems not noted in ROS Statement are negative. Past Medical History Past Medical History: Cancer Additional Past Medical History / Comment(s): brain cancer History of Any Multi-Drug Resistant Organisms: None Reported Past Surgical History: No Surgical Hx Reported Additional Past Surgical History / Comment(s): pt had brain tumor removal 11/2017 Past Psychological History: No Psychological Hx Reported Smoking Status: Former smoker Past Alcohol Use History: Occasional Past Drug Use History: None Reported General Exam Limitations: no limitations General appearance: alert, in no apparent distress Head exam: Present: atraumatic, normocephalic, normal inspection Eye exam: Present: normal appearance, PERRL, EOMI. Absent: scleral icterus, conjunctival injection, periorbital swelling ENT exam: Present: normal exam, mucous membranes moist Neck exam: Present: normal inspection. Absent: tenderness, meningismus, lymphadenopathy Respiratory exam: Present: normal lung sounds bilaterally. Absent: respiratory distress, wheezes, rales, rhonchi, stridor Cardiovascular Exam: Present: regular rate, normal rhythm, normal heart sounds. Absent: systolic murmur, diastolic murmur, rubs, gallop, clicks GI/Abdominal exam: Present: soft, normal bowel sounds. Absent: distended, tenderness, guarding, rebound, rigid Extremities exam: Present: normal inspection, full ROM, normal capillary refill. Absent: tenderness, pedal edema, joint swelling, calf tenderness Back exam: Present: normal inspection Neurological exam: Present: alert, oriented X3, CN II-XII intact Psychiatric exam: Present: normal affect, normal mood Skin exam: Present: warm, dry, intact, normal color. Absent: rash Course Vital Signs 05/10/18 05/10/18 14:39 17:03 Temperature 97.4 F L Pulse Rate 81 55 L Respiratory 16 18 Rate Blood Pressure 123/81 119/81 O2 Sat by Pulse 99 98 Oximetry Medical Decision Making - Medical Decision Making 63 female the ER for evaluation of elevated INR, patient is given oral vitamin K here in the emergency room, patient INR of 10 today, she is encouraged to hold her Coumadin as well, follows with primary care tomorrow for further evaluation of INR. Patient is without bleeding Disposition Clinical Impression: Warfarin-induced coagulopathy Disposition: HOME SELF-CARE Condition: Good Instructions (If sedation given, give patient instructions): Warfarin (By mouth ) Is patient prescribed a controlled substance at d/c from ED?: No Referrals: Yosvany Delarosa MD [Primary Care Provider] - 1-2 days
[2018-05-10 17:04] VITALS: BP 119/81; PULSE 55; RESP 18
== END 2018-05-10 17:03 | disposition home or self-care (01) ==
LOC: EC 14:12
DX: D68.8 Other specified coagulation defects (principal); Z85.841 Personal history of malignant neoplasm of brain; Z87.891 Personal history of nicotine dependence; Z79.01 Long term (current) use of anticoagulants; Z79.899 Other long term (current) drug therapy; Z53.8 Procedure and treatment not carried out for other reasons
CPT/HCPCS: 99283

== ENCOUNTER → 2018-05-10 | Outpatient (CLI) | payer BC ==
[2018-05-10 13:08] LABS: Prothrombin Time 107.2 sec (9.0-12.0)
[2018-05-10 13:19] LABS: INR >10.0 (<1.2)
== END | disposition home or self-care (01) ==
LOC: LABWHC1 11:57
PROVIDERS: ATTEND Family Medicine
DX: Z51.81 Encounter for therapeutic drug level monitoring (principal); Z79.01 Long term (current) use of anticoagulants
CPT/HCPCS: 36415; 85610

== ENCOUNTER 2018-06-02 06:38 | Day surgery (SDC) | payer BC ==
[2018-06-01 11:21] VITALS: BMI 23.9
[~2018-06-02 06:38] MED LIST: LACTATED RINGERS 1,000 ML IV SCH; LIDOCAINE 1% 20 ML VIAL (10MG/ML) FOR IV START INTRADERMA PRN
[2018-06-02] MEDS ORDERED: LACTATED RINGERS 1,000 ML IV ONE (07:12)
[2018-06-02 07:30] VITALS: TEMP 98
[2018-06-02] MEDS ORDERED: PROPOFOL 10 MG/ML 20 ML VIAL IV ONE (07:43)
[2018-06-02] MEDS ORDERED: LIDOCAINE 1% INJ 10MG/ML (20 ML MDV) ONE (07:43)
--- NOTE | 2018-06-02 07:55 | P.GSHP ---
History of Present Illness H&P Date: 06/02/18 Chief Complaint: Screening colonoscopy This is a 63-year-old female who presents today for screening colonoscopy. Patient denies a significant GI complaints. Past Medical History Past Medical History: Cancer Additional Past Medical History / Comment(s): BRAIN CANCER DIAGNOSED NOV 30 2017, PT HAD SURGERY 12/02/17 AND CHEMO & RADIATION TX FOR 6 WEEKS., INFECTION WITH MENINGITIS , HX OF POSSIBLE SEIZURES., SHORT TERM MEMORY., HX OF DVT LEFT THIGH (APR 2017)., MISSING SKULL CAP ON RIGHT - WEARS HELMET. History of Any Multi-Drug Resistant Organisms: None Reported Past Surgical History: Breast Surgery Additional Past Surgical History / Comment(s): BRAIN TUMOR REMOVAL 11/2017, SURGERY FOR BRAIN INFECTION (FEB-APR),. PEG TUBE., HX OF TUMMY TUCK AND BREAST LIFT., CYST ON KNEE REMOVED. Past Anesthesia/Blood Transfusion Reactions: No Reported Reaction Additional Past Anesthesia/Blood Transfusion Reaction / Comment(s): CLAUSTROPHOBIC Past Psychological History: Anxiety Smoking Status: Former smoker Past Alcohol Use History: Rare Additional Past Alcohol Use History / Comment(s): QUIT SMOKING SUMMER 2017., SMOKED 4 CIGARETTES/WEEK. Past Drug Use History: None Reported Additional Drug Use History / Comment(s): TAKING MARINOL FOR APPETITE CURRENTLY - Past Family History Father Family Medical History: Cancer Additional Family Medical History / Comment(s): BRAIN CANCER Sister(s) Family Medical History: Cancer Additional Family Medical History / Comment(s): LEUKEMIA Medications and Allergies Home Medications Medication Instructions Recorded Confirmed Type Dexamethasone [Decadron] 4 mg PO DAILY 02/13/18 06/02/18 History HYDROcodone/APAP 5-325MG [[place] 1 tab PO Q6HR PRN 02/13/18 06/02/18 History 5-325] Dronabinol [Marinol] 5 mg PO AC-BID 05/10/18 06/02/18 History levETIRAcetam [Keppra] 1,000 mg PO BID 05/10/18 06/02/18 History Apixaban [Eliquis] 2.5 mg PO BID 06/01/18 06/01/18 History Stool Softner 1 dose PO DIRECTED PRN 06/01/18 06/02/18 History Allergies Allergy/AdvReac Type Severity Reaction Status Date / Time ampicillin Allergy Unknown Swelling Verified 06/02/18 07:14 Surgical - Exam Vital Signs Temp Pulse Resp BP Pulse Ox 98 F 67 14 138/72 99 06/02/18 07:27 06/02/18 07:27 06/02/18 07:27 06/02/18 07:27 06/02/18 07:27 - General well developed, well nourished, no distress - Eyes PERRL - ENT normal pinna - Neck no masses - Respiratory normal expansion - Cardiovascular Rhythm: regular - Abdomen Abdomen: soft, non tender Assessment and Plan Assessment: We'll perform screening colonoscopy.
--- NOTE | 2018-06-02 08:17 | P.OP ---
Date of Procedure: 06/02/18 Preoperative Diagnosis: Screening colonoscopy Postoperative Diagnosis: Severe diverticulosis of sigmoid colon Right colon polyp Procedure(s) Performed: Colonoscopy Anesthesia: MAC Surgeon: Martin Glover Pathology: other (Right colon polyp) Condition: stable Disposition: PACU Description of Procedure: The patient's placed on the endoscopy table in the lateral position. She received IV sedation. Digital rectal exam was performed which revealed no rebound. Flexible colonoscope was then placed patient anus and passed throughout the entire colon. The ileocecal valve was visualized. The cecum appeared normal. In the ascending colon there was a sessile polyp. This removed with a cold forcep. Scope was withdrawn and the remainder of the ascending colon and transverse colon appeared normal. In the descending colon was a few scattered diverticula. In the sigmoid colon there was extensive se nina diverticulosis. The scope was then brought back the rectum and this appeared normal. Scope was withdrawn for patient.
[2018-06-02 08:31] VITALS: BP 145/74; PULSE 87; RESP 16
== END 2018-06-02 09:05 | disposition home or self-care (01) ==
LOC: ORWHC2ENDO 06:38
PROVIDERS: ATTEND Surgery
DX: Z12.11 Encounter for screening for malignant neoplasm of colon (principal); D12.2 Benign neoplasm of ascending colon; K57.30 Diverticulosis of large intestine without perforation or abscess without bleeding; F41.9 Anxiety disorder, unspecified; Z87.891 Personal history of nicotine dependence; Z86.718 Personal history of other venous thrombosis and embolism; Z79.01 Long term (current) use of anticoagulants; Z79.899 Other long term (current) drug therapy; Z88.0 Allergy status to penicillin; Z79.891 Long term (current) use of opiate analgesic; Z85.841 Personal history of malignant neoplasm of brain
CPT/HCPCS: 88305; 45380; J2001; J2704

== ENCOUNTER → 2018-06-15 | Outpatient (CLI) | payer BC ==
--- NOTE | 2018-06-16 10:52 | MM ---
Reason for exam: screening (asymptomatic). Last mammogram was performed 5 years and 1 month ago. History: Patient is postmenopausal and has history of other cancer at age 62. Breast lifts, 1996. Physical Findings: A clinical breast exam by your physician is recommended on an annual basis and results should be correlated with mammographic findings. MG Screening Mammo w CAD Bilateral CC and MLO view(s) were taken. Prior study comparison: May 03, 2013, bilateral digital screening mammo w/CAD. The breast tissue is heterogeneously dense. This may lower the sensitivity of mammography. Stable benign calcifications. There is no discrete abnormality. No significant changes when compared with prior studies. ASSESSMENT: Benign, BI-RAD 2 RECOMMENDATION: Routine screening mammogram of both breasts in 1 year.
== END ==
LOC: RADMAMWWP 15:00
PROVIDERS: ATTEND Family Medicine
DX: Z12.31 Encounter for screening mammogram for malignant neoplasm of breast (principal)
CPT/HCPCS: 77067

== ENCOUNTER 2018-08-08 14:33 | Emergency (ER) | payer BC ==
[2018-08-08] MEDS ORDERED: SODIUM CHLORIDE 0.9% 1,000 ML IV STA (16:47)
[2018-08-08] MEDS ORDERED: MORPHINE SULFATE 4 MG/ML SYRINGE IV STA (16:47)
[2018-08-08 17:22] LABS: Basophils % (A) 1 %; Eosinophils # (A) 0.1 k/uL (0-0.7); Eosinophils % (A) 3 %; HCT 35.5 % (34.0-46.0); HGB 11.7 gm/dL (11.4-16.0); Lymphocytes # (A) 0.6 k/uL (1.0-4.8); Lymphocytes % (A) 19 %; MCH 30.9 pg (25.0-35.0); MCHC 32.9 g/dL (31.0-37.0); MCV 93.8 fL (80.0-100.0); Mean Platelet Volume 8.1; Monocytes # (A) 0.2 k/uL (0-1.0); Monocytes % (A) 7 %; Neutrophils # (A) 2.1 k/uL (1.3-7.7); Neutrophils % (A) 67 %; Platelet Count 243 k/uL (150-450); RBC 3.78 m/uL (3.80-5.40); RDW 15.5 % (11.5-15.5); WBC 3.2 k/uL (3.8-10.6)
[2018-08-08 17:35] LABS: D-Dimer 0.34 mg/L FEU (<0.60); Partial Thromboplastin Time 22.8 sec (22.0-30.0); Prothrombin Time 10.4 sec (9.0-12.0)
[2018-08-08 17:36] LABS: ALT 16 U/L (9-52); AST 20 U/L (14-36); African American GFR (CKD) 85 (>60 ml/min/1.73 sqM); Albumin 4.1 g/dL (3.5-5.0); Alkaline Phosphatase 81 U/L (38-126); Anion Gap 8 mmol/L; Blood Urea Nitrogen 11 mg/dL (7-17); C Reactive Protein <5.0 mg/L (<10.0); Calcium 9.5 mg/dL (8.4-10.2); Carbon Dioxide 27 mmol/L (22-30); Chloride 106 mmol/L (98-107); Creatine Kinase 30 U/L (30-135); Glucose 89 mg/dL (74-99); Magnesium 1.8 mg/dL (1.6-2.3); Phosphorus 4.1 mg/dL (2.5-4.5); Sodium 141 mmol/L (137-145); Total Bilirubin 0.3 mg/dL (0.2-1.3)
[2018-08-08 17:46] LABS: Appearance,Urine Clear (Clear); Bilirubin,Urine Negative (Negative); Blood,Urine Negative (Negative); Color,Urine Colorless; Glucose,Urine (UA) Negative (Negative); Ketones,Urine Negative (Negative); Leukocyte Esterase,Urine Negative (Negative); Nitrite,Urine Negative (Negative); Protein,Urine Negative (Negative); Specific Gravity,Urine 1.003 (1.001-1.035); Urobilinogen,Urine <2.0 mg/dL (<2.0)
--- NOTE | 2018-08-08 17:53 | ED ---
Weakness HPI - General Chief complaint: Chest Pain Stated complaint: Fall Time Seen by Provider: 08/08/18 16:47 Source: patient, RN notes reviewed, old records reviewed Mode of arrival: wheelchair Limitations: no limitations - History of Present Illness Initial comments: This is a 63-year-old female the ER for evaluation. Patient coming in for evaluation of headache neck pain neck pain. Patient has a significant recent medical history which includes surgery for glioblastoma admitted prolonged, and complicated course of meningitis. Patient had prolonged hospital stay 20 day stay on antibiotics. Patient currently denies any shortness of breath or chest pain no fevers. Patient states is been taking her vital signs are normal and they've been admitted maintained within normal limits. Patient saw her family doctor today for this back pain is back pain is been going on for at least a week with no aggravating factors. Patient was sent in the ER for evaluation by primary care. Patient currently is also still complaining of back pain MD Complaint: generalized weakness -: week(s) Location: other (Back pain, No trauma) Severity: mild Severity scale (1-10): 3 Quality: aching Consistency: constant Improves with: none Worsens with: none Context: trauma/injury, history of similar Associated Symptoms: headaches, myalgias - Related Data Home Medications Medication Instructions Recorded Confirmed levETIRAcetam [Keppra] 1,000 mg PO BID 05/10/18 08/08/18 Apixaban [Eliquis] 2.5 mg PO BID 06/01/18 08/08/18 Atorvastatin [Lipitor] 20 mg PO DAILY 08/08/18 08/08/18 Docusate [Colace] 100 mg PO BID 08/08/18 08/08/18 Temozolomide [Temodar] 140 mg PO DIRECTED 08/08/18 08/08/18 Temozolomide [Temodar] 180 mg PO DIRECTED 08/08/18 08/08/18 Allergies Allergy/AdvReac Type Severity Reaction Status Date / Time ampicillin Allergy Unknown Swelling Verified 08/08/18 17:00 Review of Systems ROS Statement: Those systems with pertinent positive or pertinent negative responses have been documented in the HPI. ROS Other: All systems not noted in ROS Statement are negative. Past Medical History Past Medical History: Cancer Additional Past Medical History / Comment(s): BRAIN CANCER DIAGNOSED NOV 30 2017, PT HAD SURGERY 12/02/17 AND CHEMO & RADIATION TX FOR 6 WEEKS., INFECTION WITH MENINGITIS , HX OF POSSIBLE SEIZURES., SHORT TERM MEMORY., HX OF DVT LEFT THIGH (APR 2017)., MISSING SKULL CAP ON RIGHT - WEARS HELMET. History of Any Multi-Drug Resistant Organisms: None Reported Past Surgical History: Breast Surgery Additional Past Surgical History / Comment(s): BRAIN TUMOR REMOVAL 11/2017, SURGERY FOR BRAIN INFECTION (FEB-APR),. PEG TUBE., HX OF TUMMY TUCK AND BREAST LIFT., CYST ON KNEE REMOVED. Past Anesthesia/Blood Transfusion Reactions: No Reported Reaction Additional Past Anesthesia/Blood Transfusion Reaction / Comment(s): CLAUSTROPHOBIC Past Psychological History: Anxiety Smoking Status: Former smoker Past Alcohol Use History: Rare Past Drug Use History: None Reported - Past Family History Father Family Medical History: Cancer Additional Family Medical History / Comment(s): BRAIN CANCER Sister(s) Family Medical History: Cancer Additional Family Medical History / Comment(s): LEUKEMIA General Exam Limitations: no limitations General appearance: alert, in no apparent distress Head exam: Present: atraumatic, normocephalic, normal inspection Eye exam: Present: normal appearance, PERRL, EOMI. Absent: scleral icterus, conjunctival injection, periorbital swelling ENT exam: Present: normal exam, mucous membranes moist Neck exam: Present: normal inspection. Absent: tenderness, meningismus, lymphadenopathy Respiratory exam: Present: normal lung sounds bilaterally. Absent: respiratory distress, wheezes, rales, rhonchi, stridor Cardiovascular Exam: Present: normal rhythm, tachycardia, normal heart sounds. Absent: systolic murmur, diastolic murmur, rubs, gallop, clicks GI/Abdominal exam: Present: soft, normal bowel sounds. Absent: distended, tenderness, guarding, rebound, rigid Extremities exam: Present: normal inspection, full ROM, normal capillary refill. Absent: tenderness, pedal edema, joint swelling, calf tenderness Back exam: Present: normal inspection Neurological exam: Present: alert, oriented X3, CN II-XII intact Psychiatric exam: Present: normal affect, normal mood Skin exam: Present: warm, dry, intact, normal color. Absent: rash Course Vital Signs 08/08/18 08/08/18 16:52 18:31 Temperature 98.3 F Pulse Rate 101 H 79 Respiratory 22 18 Rate Blood Pressure 121/73 124/85 O2 Sat by Pulse 100 98 Oximetry - Reevaluation(s) Reevaluation #1: 08/08/18 18:14 Medical record is reviewed, did speak with Dr. Delarosa regarding patient care Reevaluation #2: 08/08/18 18:14 Patient has adequate pain control Reevaluation #3: 08/08/18 19:[address] Delarosa regarding patient, findings here in the ER. He will follow patient in the office Spoke with patient at length regarding findings here in the ER, patient's reassured there is no recurrence of CVA, patient's pain is controlled EKG Findings - EKG Comments: EKG Findings:: EKG shows normal sinus rhythm at 60, ID 146, QRS 72, QTc 433 Medical Decision Making - Medical Decision Making 63 female the ER for back pain. Patient has normal testing here in the ER no evidence of infection no fever labwork is normal, CT is negative cervical thoracic and lumbar spine - Lab Data Result diagrams: 08/08/18 15:56 08/08/18 15:56 Lab Results 08/08/18 08/08/18 08/08/18 Range/Units 15:56 15:56 15:56 WBC 3.2 L (3.8-10.6) k/uL RBC 3.78 L (3.80-5.40) m/uL Hgb 11.7 (11.4-16.0) gm/dL Hct 35.5 (34.0-46.0) % MCV 93.8 (80.0-100.0) fL MCH 30.9 (25.0-35.0) pg MCHC 32.9 (31.0-37.0) g/dL RDW 15.5 (11.5-15.5) % Plt Count 243 (150-450) k/uL Neutrophils % 67 % Lymphocytes % 19 % Monocytes % 7 % Eosinophils % 3 % Basophils % 1 % Neutrophils # 2.1 (1.3-7.7) k/uL Lymphocytes # 0.6 L (1.0-4.8) k/uL Monocytes # 0.2 (0-1.0) k/uL Eosinophils # 0.1 (0-0.7) k/uL Basophils # 0.0 (0-0.2) k/uL PT 10.4 (9.0-12.0) sec INR 1.0 (<1.2) APTT 22.8 (22.0-30.0) sec D-Dimer 0.34 (<0.60) mg/L FEU Sodium 141 (137-145) mmol/L Potassium 4.0 (3.5-5.1) mmol/L Chloride 106 (98-107) mmol/L Carbon Dioxide 27 (22-30) mmol/L Anion Gap 8 mmol/L BUN 11 (7-17) mg/dL Creatinine 0.85 (0.52-1.04) mg/dL Est GFR (CKD-EPI)AfAm 85 (>60 ml/min/1.73 sqM) Est GFR (CKD-EPI)NonAf 73 (>60 ml/min/1.73 sqM) Glucose 89 (74-99) mg/dL Plasma Lactic Acid Matthew (0.7-2.0) mmol/L Calcium 9.5 (8.4-10.2) mg/dL Phosphorus 4.1 (2.5-4.5) mg/dL Magnesium 1.8 (1.6-2.3) mg/dL Total Bilirubin 0.3 (0.2-1.3) mg/dL AST 20 (14-36) U/L ALT 16 (9-52) U/L Alkaline Phosphatase 81 (38-126) U/L Creatine Kinase 30 (30-135) U/L Troponin I (0.000-0.034) ng/mL C-Reactive Protein <5.0 (<10.0) mg/L Total Protein 7.0 (6.3-8.2) g/dL Albumin 4.1 (3.5-5.0) g/dL Urine Color Urine Appearance (Clear) Urine pH (5.0-8.0) Ur Specific [place] (1.001-1.035) Urine Protein (Negative) Urine Glucose (UA) (Negative) Urine Ketones (Negative) Urine Blood (Negative) Urine Nitrite (Negative) Urine Bilirubin (Negative) Urine Urobilinogen (<2.0) mg/dL Ur Leukocyte Esterase (Negative) 08/08/18 08/08/18 08/08/18 Range/Units 15:56 15:56 17:25 WBC (3.8-10.6) k/uL RBC (3.80-5.40) m/uL Hgb (11.4-16.0) gm/dL Hct (34.0-46.0) % MCV (80.0-100.0) fL MCH (25.0-35.0) pg MCHC (31.0-37.0) g/dL RDW (11.5-15.5) % Plt Count (150-450) k/uL Neutrophils % % Lymphocytes % % Monocytes % % Eosinophils % % Basophils % % Neutrophils # (1.3-7.7) k/uL Lymphocytes # (1.0-4.8) k/uL Monocytes # (0-1.0) k/uL Eosinophils # (0-0.7) k/uL Basophils # (0-0.2) k/uL PT (9.0-12.0) sec INR (<1.2) APTT (22.0-30.0) sec D-Dimer (<0.60) mg/L FEU Sodium (137-145) mmol/L Potassium (3.5-5.1) mmol/L Chloride (98-107) mmol/L Carbon Dioxide (22-30) mmol/L Anion Gap mmol/L BUN (7-17) mg/dL Creatinine (0.52-1.04) mg/dL Est GFR (CKD-EPI)AfAm (>60 ml/min/1.73 sqM) Est GFR (CKD-EPI)NonAf (>60 ml/min/1.73 sqM) Glucose (74-99) mg/dL Plasma Lactic Acid Matthew 0.8 (0.7-2.0) mmol/L Calcium (8.4-10.2) mg/dL Phosphorus (2.5-4.5) mg/dL Magnesium (1.6-2.3) mg/dL Total Bilirubin (0.2-1.3) mg/dL AST (14-36) U/L ALT (9-52) U/L Alkaline Phosphatase (38-126) U/L Creatine Kinase (30-135) U/L Troponin I <0.012 (0.000-0.034) ng/mL C-Reactive Protein (<10.0) mg/L Total Protein (6.3-8.2) g/dL Albumin (3.5-5.0) g/dL Urine Color Colorless Urine Appearance Clear (Clear) Urine pH 7.0 (5.0-8.0) Ur Specific [place] 1.003 (1.001-1.035) Urine Protein Negative (Negative) Urine Glucose (UA) Negative (Negative) Urine Ketones Negative (Negative) Urine Blood Negative (Negative) Urine Nitrite Negative (Negative) Urine Bilirubin Negative (Negative) Urine Urobilinogen <2.0 (<2.0) mg/dL Ur Leukocyte Esterase Negative (Negative) - Radiology Data Radiology results: report reviewed (CT brain C-spine and thoracic and lumbar spine is negative for acute disease), image reviewed Disposition Clinical Impression: Back pain Disposition: HOME SELF-CARE Condition: Good Instructions (If sedation given, give patient instructions): Back Pain (ED) Is patient prescribed a controlled substance at d/c from ED?: No Referrals: Yosvany Delarosa MD [Primary Care Provider] - 1-2 days
--- NOTE | 2018-08-08 18:20 | CT ---
EXAMINATION TYPE: CT thor lumbar spine wo con DATE OF EXAM: 08/08/2018 COMPARISON: HISTORY: Weakness and back pain. History of brain cancer. CT DLP: 943.2 mGycm Automated exposure control for dose reduction was used. FINDINGS: SKELETAL STRUCTURES: There is no fracture. The morphology of the vertebral segments of the thoracic a nd lumbosacral spine are maintained. There is generalized osteopenia. There are mild and moderate multilevel spondylosis changes noted. No focal disc extrusion/protrusion. No advanced spinal stenosis. SOFT TISSUES: Prominent left and right coronary calcifications noted. No cardiomegaly or pericardial effusion. VISUALIZED LUNG PARENCHYMA: In the right lower lobe posteriorly is a 1.5 cm subpleural consolidative ill-defined nodule. Follow-up low dose lung CT characterization in 9 weeks is recommended to prove re solution. IMPRESSION: 1) SPINE: NO ACUTE PROCESS. 2) INCIDENTAL: PROMINENT CORONARY CALCIFICATIONS. 3) INCIDENTAL: 1.5 CM RIGHT LOWER LOBE SOLID PULMONARY NODULE, NOT DEFINITELY SEEN ON THE PRIOR CT O F 11/29/2017.
--- NOTE | 2018-08-08 18:26 | CT ---
EXAMINATION TYPE: CT brain rojas wo con DATE OF EXAM: 08/08/2018 COMPARISON: 02/13/2018 HISTORY: Weakness and back pain. History of brain cancer. CT DLP: 1195.1 mGycm Automated exposure control for dose reduction was used. TECHNIQUE: CT scan of the head and cervical spine are performed without contrast. FINDINGS: Head CT: Right craniectomy postprocedural change. There is no skull fracture. No intracranial hemorrh age. There is no midline shift of structures. Large zone of encephalomalacia is noted throughout the right temporal and parietal and occipital lobes. No definite new intracranial attenuation defect. Cervical spine CT: Cervical spine is visualized in its entirety from C1 through upper thoracic levels and demonstrates satisfactory alignment without evidence of acute fracture or dislocation. Preverte bral soft tissue appears within normal limits. The C1-C2 articulation is unremarkable. IMPRESSION: 1. There is no acute fracture or dislocation evident in the cervical spine. 2. No definite acute intracranial process.
[2018-08-08 18:36] VITALS: RESP 18
[2018-08-08 19:32] VITALS: BP 127/73; PULSE 78; TEMP 97.9
== END 2018-08-08 19:31 | disposition home or self-care (01) ==
LOC: EC 14:33
DX: M54.9 Dorsalgia, unspecified (principal); R00.0 Tachycardia, unspecified; R51 Headache; M79.10 Myalgia, unspecified site; R53.1 Weakness; M54.2 Cervicalgia; Z87.891 Personal history of nicotine dependence; Z88.0 Allergy status to penicillin; Z79.01 Long term (current) use of anticoagulants; Z79.899 Other long term (current) drug therapy; Z85.841 Personal history of malignant neoplasm of brain; Z92.21 Personal history of antineoplastic chemotherapy; Z92.3 Personal history of irradiation; Z98.890 Other specified postprocedural states
CPT/HCPCS: 99285; 96374; 96361; 36415; 93005; 85379; 80053; 82550; 83605; 83735; 84100; 84484; 85025; 85610; 85730; 86140; 81003; 87086; 72128; 72125; 72131; 70450; J2270

== ENCOUNTER 2018-09-07 17:57 | Emergency (ER) | payer BC ==
[2018-09-07] MEDS ORDERED: SODIUM CHLORIDE 0.9% 1,000 ML IV STA ×3 (18:29→20:31)
--- NOTE | 2018-09-07 18:30 | ED ---
Weakness HPI - General Chief complaint: Weakness Stated complaint: WEAKNESS, SEVERAL UTI'S OVER THE LAST 4 MONTHS Time Seen by Provider: 09/07/18 18:29 Source: patient, family, RN notes reviewed, old records reviewed Mode of arrival: ambulatory Limitations: physical limitation - History of Present Illness Initial comments: This is a 63-year-old female the ER for evaluation. Patient resents today for evaluation regarding altered mental status, lethargy and weakness. History of recent urinary tract infections. Multiple different antibiotics. Recently changed from Levaquin to Macrobid. Patient herself denies any significant complaints currently. She is awake and alert. Family states patient is just not eating and drinking appropriately. They do feel like she is dehydrated. Decreased and at overall urination MD Complaint: generalized weakness, lack of energy -: days(s) Location: generalized Severity: mild Severity scale (1-10): 3 Quality: tingling Consistency: constant Improves with: none Worsens with: none Context: new medication Associated Symptoms: denies other symptoms - Related Data Home Medications Medication Instructions Recorded Confirmed levETIRAcetam [Keppra] 1,000 mg PO BID 05/10/18 09/09/18 Apixaban [Eliquis] 2.5 mg PO BID 06/01/18 09/09/18 Atorvastatin [Lipitor] 20 mg PO DAILY 08/08/18 09/09/18 Docusate [Colace] 100 mg PO BID 08/08/18 09/09/18 Temozolomide [Temodar] 140 mg PO DIRECTED 08/08/18 09/09/18 Temozolomide [Temodar] 180 mg PO DIRECTED 08/08/18 09/09/18 HYDROcodone/APAP 5-325MG [[place] 1 tab PO Q6H PRN 09/07/18 09/09/18 5-325] Previous Rx's Medication Instructions Recorded Nitrofurantoin Monohyd/M-Cryst 100 mg PO Q12HR #14 cap 09/07/18 [Macrobid] Allergies Allergy/AdvReac Type Severity Reaction Status Date / Time ampicillin Allergy Unknown Swelling Verified 09/09/18 11:22 Review of Systems ROS Statement: Those systems with pertinent positive or pertinent negative responses have been documented in the HPI. ROS Other: All systems not noted in ROS Statement are negative. Past Medical History Past Medical History: Cancer Additional Past Medical History / Comment(s): BRAIN CANCER DIAGNOSED NOV 30 2017, PT HAD SURGERY 12/02/17 AND CHEMO & RADIATION TX FOR 6 WEEKS., INFECTION WITH MENINGITIS , HX OF POSSIBLE SEIZURES., SHORT TERM MEMORY., HX OF DVT LEFT THIGH (APR 2017)., MISSING SKULL CAP ON RIGHT - WEARS HELMET. History of Any Multi-Drug Resistant Organisms: None Reported Past Surgical History: Breast Surgery Additional Past Surgical History / Comment(s): BRAIN TUMOR REMOVAL 11/2017, SURGERY FOR BRAIN INFECTION (FEB-APR),. PEG TUBE., HX OF TUMMY TUCK AND BREAST LIFT., CYST ON KNEE REMOVED. Past Anesthesia/Blood Transfusion Reactions: No Reported Reaction Additional Past Anesthesia/Blood Transfusion Reaction / Comment(s): CLAUSTROPHOBIC Past Psychological History: Anxiety Smoking Status: Former smoker Past Alcohol Use History: Rare Past Drug Use History: None Reported - Past Family History Father Family Medical History: Cancer Additional Family Medical History / Comment(s): BRAIN CANCER Sister(s) Family Medical History: Cancer Additional Family Medical History / Comment(s): LEUKEMIA General Exam Limitations: physical limitation General appearance: alert, in no apparent distress Head exam: Present: atraumatic, normocephalic, normal inspection Eye exam: Present: normal appearance, PERRL, EOMI. Absent: scleral icterus, conjunctival injection, periorbital swelling ENT exam: Present: normal exam, mucous membranes moist Neck exam: Present: normal inspection. Absent: tenderness, meningismus, lymphadenopathy Respiratory exam: Present: normal lung sounds bilaterally. Absent: respiratory distress, wheezes, rales, rhonchi, stridor Cardiovascular Exam: Present: normal rhythm, tachycardia, normal heart sounds. Absent: systolic murmur, diastolic murmur, rubs, gallop, clicks GI/Abdominal exam: Present: soft, normal bowel sounds. Absent: distended, tenderness, guarding, rebound, rigid Extremities exam: Present: normal inspection, full ROM, normal capillary refill. Absent: tenderness, pedal edema, joint swelling, calf tenderness Back exam: Present: normal inspection Neurological exam: Present: alert, oriented X3, CN II-XII intact Psychiatric exam: Present: normal affect, normal mood Skin exam: Present: warm, dry, intact, normal color. Absent: rash Course Vital Signs 09/07/18 09/07/18 09/07/18 18:09 19:19 20:27 Temperature 97.7 F 97.9 F Pulse Rate 106 H 93 100 Respiratory 20 18 18 Rate Blood Pressure 131/93 151/105 138/97 O2 Sat by Pulse 99 99 99 Oximetry 09/07/18 09/07/18 21:09 22:16 Temperature 97.7 F Pulse Rate 96 99 Respiratory 18 17 Rate Blood Pressure 168/92 146/98 O2 Sat by Pulse 100 100 Oximetry - Reevaluation(s) Reevaluation #1: Medical record is reviewed Patient has significant recent medical history of brain tumor with resection, recurrent urinary tract infections. Fevers. On chemotherapy Prior microbiology of urine is reviewed EKG Findings - EKG Comments: EKG Findings:: EKG shows sinus rhythm rate of 94, TN 134, QRS 60, QTc 452 Medical Decision Making - Medical Decision Making 63. Female the ER for evaluation. Patient has recurrent UTI does appear to have UTI's still, patient without significant recent medications. Patient was placed on Macrobid to continue outpatient treatment. Patient does not want inpatient hospital admission currently. Did speak with Dr. Delarosa who will see patient this week. - Lab Data Result diagrams: 09/07/18 18:57 09/07/18 18:57 Lab Results 09/07/18 09/07/18 09/07/18 Range/Units 18:57 18:57 18:57 WBC 5.3 (3.8-10.6) k/uL RBC 3.86 (3.80-5.40) m/uL Hgb 12.3 (11.4-16.0) gm/dL Hct 36.9 (34.0-46.0) % MCV 95.6 (80.0-100.0) fL MCH 31.9 (25.0-35.0) pg MCHC 33.3 (31.0-37.0) g/dL RDW 14.7 (11.5-15.5) % Plt Count 252 (150-450) k/uL Neutrophils % 72 % Lymphocytes % 13 % Monocytes % 9 % Eosinophils % 2 % Basophils % 1 % Neutrophils # 3.8 (1.3-7.7) k/uL Lymphocytes # 0.7 L (1.0-4.8) k/uL Monocytes # 0.5 (0-1.0) k/uL Eosinophils # 0.1 (0-0.7) k/uL Basophils # 0.0 (0-0.2) k/uL PT (9.0-12.0) sec INR (<1.2) APTT (22.0-30.0) sec Sodium 138 (137-145) mmol/L Potassium 4.1 (3.5-5.1) mmol/L Chloride 99 (98-107) mmol/L Carbon Dioxide 30 (22-30) mmol/L Anion Gap 9 mmol/L BUN 29 H (7-17) mg/dL Creatinine 0.84 (0.52-1.04) mg/dL Est GFR (CKD-EPI)AfAm 86 (>60 ml/min/1.73 sqM) Est GFR (CKD-EPI)NonAf 74 (>60 ml/min/1.73 sqM) Glucose 106 H (74-99) mg/dL Plasma Lactic Acid Matthew 1.4 (0.7-2.0) mmol/L Calcium 10.1 (8.4-10.2) mg/dL Phosphorus 4.6 H (2.5-4.5) mg/dL Magnesium 2.0 (1.6-2.3) mg/dL Total Bilirubin 0.2 (0.2-1.3) mg/dL AST 16 (14-36) U/L ALT 14 (9-52) U/L Alkaline Phosphatase 70 (38-126) U/L Creatine Kinase 24 L (30-135) U/L Troponin I (0.000-0.034) ng/mL Total Protein 7.6 (6.3-8.2) g/dL Albumin 4.6 (3.5-5.0) g/dL TSH 2.430 (0.465-4.680) mIU/L Urine Color Urine Appearance (Clear) Urine pH (5.0-8.0) Ur Specific [place] (1.001-1.035) Urine Protein (Negative) Urine Glucose (UA) (Negative) Urine Ketones (Negative) Urine Blood (Negative) Urine Nitrite (Negative) Urine Bilirubin (Negative) Urine Urobilinogen (<2.0) mg/dL Ur Leukocyte Esterase (Negative) Urine RBC (0-5) /hpf Urine WBC (0-5) /hpf Urine WBC Clumps (None) /hpf Amorphous Sediment (None) /hpf Urine Bacteria (None) /hpf Urine Yeast (Budding) (None) /hpf 09/07/18 09/07/18 09/07/18 Range/Units 18:57 18:57 20:06 WBC (3.8-10.6) k/uL RBC (3.80-5.40) m/uL Hgb (11.4-16.0) gm/dL Hct (34.0-46.0) % MCV (80.0-100.0) fL MCH (25.0-35.0) pg MCHC (31.0-37.0) g/dL RDW (11.5-15.5) % Plt Count (150-450) k/uL Neutrophils % % Lymphocytes % % Monocytes % % Eosinophils % % Basophils % % Neutrophils # (1.3-7.7) k/uL Lymphocytes # (1.0-4.8) k/uL Monocytes # (0-1.0) k/uL Eosinophils # (0-0.7) k/uL Basophils # (0-0.2) k/uL PT 9.7 (9.0-12.0) sec INR 0.9 (<1.2) APTT 21.3 L (22.0-30.0) sec Sodium (137-145) mmol/L Potassium (3.5-5.1) mmol/L Chloride (98-107) mmol/L Carbon Dioxide (22-30) mmol/L Anion Gap mmol/L BUN (7-17) mg/dL Creatinine (0.52-1.04) mg/dL Est GFR (CKD-EPI)AfAm (>60 ml/min/1.73 sqM) Est GFR (CKD-EPI)NonAf (>60 ml/min/1.73 sqM) Glucose (74-99) mg/dL Plasma Lactic Acid Matthew (0.7-2.0) mmol/L Calcium (8.4-10.2) mg/dL Phosphorus (2.5-4.5) mg/dL Magnesium (1.6-2.3) mg/dL Total Bilirubin (0.2-1.3) mg/dL AST (14-36) U/L ALT (9-52) U/L Alkaline Phosphatase (38-126) U/L Creatine Kinase (30-135) U/L Troponin I <0.012 (0.000-0.034) ng/mL Total Protein (6.3-8.2) g/dL Albumin (3.5-5.0) g/dL TSH (0.465-4.680) mIU/L Urine Color Light Yellow Urine Appearance Clear (Clear) Urine pH 7.0 (5.0-8.0) Ur Specific [place] 1.010 (1.001-1.035) Urine Protein Negative (Negative) Urine Glucose (UA) Negative (Negative) Urine Ketones Negative (Negative) Urine Blood Negative (Negative) Urine Nitrite Negative (Negative) Urine Bilirubin Negative (Negative) Urine Urobilinogen <2.0 (<2.0) mg/dL Ur Leukocyte Esterase Large H (Negative) Urine RBC <1 (0-5) /hpf Urine WBC 22 H (0-5) /hpf Urine WBC Clumps Occasional H (None) /hpf Amorphous Sediment Rare H (None) /hpf Urine Bacteria Many H (None) /hpf Urine Yeast (Budding) Occasional H (None) /hpf - Radiology Data Radiology results: report reviewed (CT abd/pelvis is negative for acute disease), image reviewed Disposition Clinical Impression: UTI (urinary tract infection), Weakness Disposition: HOME SELF-CARE Condition: Good Instructions (If sedation given, give patient instructions): Urinary Tract Infection in Women (ED) Prescriptions: Nitrofurantoin Monohyd/M-Cryst [Macrobid] 100 mg PO Q12HR #14 cap Is patient prescribed a controlled substance at d/c from ED?: No Referrals: Yosvany Delarosa MD [Primary Care Provider] - 1-2 days
[2018-09-07 19:11] LABS: Basophils % (A) 1 %; Eosinophils # (A) 0.1 k/uL (0-0.7); Eosinophils % (A) 2 %; HCT 36.9 % (34.0-46.0); HGB 12.3 gm/dL (11.4-16.0); Lymphocytes # (A) 0.7 k/uL (1.0-4.8); Lymphocytes % (A) 13 %; MCH 31.9 pg (25.0-35.0); MCHC 33.3 g/dL (31.0-37.0); MCV 95.6 fL (80.0-100.0); Mean Platelet Volume 8.3; Monocytes # (A) 0.5 k/uL (0-1.0); Monocytes % (A) 9 %; Neutrophils # (A) 3.8 k/uL (1.3-7.7); Neutrophils % (A) 72 %; Platelet Count 252 k/uL (150-450); RBC 3.86 m/uL (3.80-5.40); RDW 14.7 % (11.5-15.5); WBC 5.3 k/uL (3.8-10.6)
[2018-09-07 19:23] LABS: Albumin 4.6 g/dL (3.5-5.0); Calcium 10.1 mg/dL (8.4-10.2); Phosphorus 4.6 mg/dL (2.5-4.5); Potassium 4.1 mmol/L (3.5-5.1); Total Bilirubin 0.2 mg/dL (0.2-1.3); Total Protein 7.6 g/dL (6.3-8.2)
[2018-09-07 19:25] LABS: INR 0.9 (<1.2); Prothrombin Time 9.7 sec (9.0-12.0)
[2018-09-07 19:39] LABS: Partial Thromboplastin Time 21.3 sec (22.0-30.0)
--- NOTE | 2018-09-07 20:04 | CT ---
EXAMINATION TYPE: CT abdomen pelvis wo con DATE OF EXAM: 09/07/2018 COMPARISON: None HISTORY: Abdominal pain. Hx of brain CA CT DLP: 416.4 mGycm Automated exposure control for dose reduction was used. TECHNIQUE: Helical acquisition of images was performed from the lung bases through the pelvis. FINDINGS: There is 12 mm nodular infiltrate adjacent to the pleura in the right lower lobe. There is no pleural effusion. Heart size is normal. There is no pericardial effusion. Liver spleen pancreas gallbladder appear normal. Bile ducts are not dilated. There is no adrenal mass. Kidneys have normal size.. There is no hydronephrosis. Bladder distends smo othly. There is no inguinal hernia. There is no retroperitoneal adenopathy. There is no evidence of a pelvic mass. Uterus is anteverted. There is no ascites or free air. There is no mesenteric edema. There are multiple sigmoid diverticula . There is no evidence of diverticulitis. Appendix is not seen. No sign of a thickened appendix. The lumbar spine is intact. Bony pelvis is intact. IMPRESSION: NO SIGN OF ACUTE ABDOMEN AND PELVIS. NODULAR INFILTRATE RIGHT LOWER LOBE ADJACENT TO THE PLEURA IS NO NSPECIFIC.
[2018-09-07 20:22] LABS: Amorphous Sediment,Urine Rare /hpf; Appearance,Urine Clear (Clear); Bacteria,Urine Many /hpf; Bilirubin,Urine Negative (Negative); Blood,Urine Negative (Negative); Budding Yeast,Urine Occasional /hpf; Color,Urine Light Yellow; Glucose,Urine (UA) Negative (Negative); Ketones,Urine Negative (Negative); Leukocyte Esterase,Urine Large (Negative); Nitrite,Urine Negative (Negative); Protein,Urine Negative (Negative); RBC,Urine <1 /hpf (0-5); Urobilinogen,Urine <2.0 mg/dL (<2.0); WBC,Urine 22 /hpf (0-5)
[2018-09-07 22:16] VITALS: BP 146/98; PULSE 99; RESP 17; TEMP 97.7
--- NOTE | 2018-09-08 05:18 | CDI ---
Documentation Clarification OP Dear Jeffrey HUDSON, DO Please do addendum to ED report for missing HPI and Physical examination. Thank you, Katerina Sena Slip Sheeter If you have any questions, please contact Gyroscopic Engineering Technician at [phone] [facility]
== END 2018-09-07 22:22 | disposition home or self-care (01) ==
LOC: EC 17:57
DX: N39.0 Urinary tract infection, site not specified (principal); R53.1 Weakness; R53.83 Other fatigue; R41.82 Altered mental status, unspecified; Z85.841 Personal history of malignant neoplasm of brain; Z92.21 Personal history of antineoplastic chemotherapy; Z87.891 Personal history of nicotine dependence; Z79.01 Long term (current) use of anticoagulants; Z79.899 Other long term (current) drug therapy; Z88.1 Allergy status to other antibiotic agents; Z53.8 Procedure and treatment not carried out for other reasons
CPT/HCPCS: 36415; 93005; 80053; 82550; 83605; 83735; 84100; 84443; 84484; 85025; 85610; 85730; 81001; 87086; 87077; 87186; 74176; 99285; 51701; 96365; 96361 ×2; J0696

== ENCOUNTER 2018-09-09 10:26 | Inpatient (IN) | payer BC ==
[2018-09-09] MEDS ORDERED: SODIUM CHLORIDE 0.9% 1,000 ML IV ONE (10:58)
--- NOTE | 2018-09-09 11:35 | ED ---
Altered Mental Status HPI - General Chief Complaint: Altered Mental Status Stated Complaint: ALTERED MENTAL STATUS Time Seen by Provider: 09/09/18 10:58 Source: family, RN notes reviewed Mode of arrival: wheelchair Limitations: altered mental status - History of Present Illness Initial Comments: 63-year-old female presents emergency department with family chief complaint of UTI, altered mental status. Patient had increasing fatigue, lethargy recently. Patient was in the emergency department had lab work, CT and pelvis and urinalysis. Patient did have evidence of urinary tract infection. Patient has been on multiple oral antibiotics recently with no improvement. Dr. Duran oncologist recommends go back to emergency department to be admitted for failed outpatient treatment. Patient is on oral chemo for history of brain cancer in which she's had extensive surgery with craniotomy performed at [facility]. Patient relates immaturity with assistance but at this point has been come so weak that she cannot ambulate. - Related Data Home Medications Medication Instructions Recorded Confirmed levETIRAcetam [Keppra] 1,000 mg PO BID 05/10/18 09/09/18 Apixaban [Eliquis] 2.5 mg PO BID 06/01/18 09/09/18 Atorvastatin [Lipitor] 20 mg PO DAILY 08/08/18 09/09/18 Docusate [Colace] 100 mg PO BID 08/08/18 09/09/18 Temozolomide [Temodar] 140 mg PO DIRECTED 08/08/18 09/09/18 Temozolomide [Temodar] 180 mg PO DIRECTED 08/08/18 09/09/18 HYDROcodone/APAP 5-325MG [[place] 1 tab PO Q6H PRN 09/07/18 09/09/18 5-325] Previous Rx's Medication Instructions Recorded Nitrofurantoin Monohyd/M-Cryst 100 mg PO Q12HR #14 cap 09/07/18 [Macrobid] Allergies Allergy/AdvReac Type Severity Reaction Status Date / Time ampicillin Allergy Unknown Swelling Verified 09/09/18 11:22 Review of Systems ROS Statement: Those systems with pertinent positive or pertinent negative responses have been documented in the HPI. ROS Other: All systems not noted in ROS Statement are negative. Past Medical History Past Medical History: Cancer Additional Past Medical History / Comment(s): BRAIN CANCER DIAGNOSED NOV 30 2017, PT HAD SURGERY 9/28/18 AND CHEMO & RADIATION TX FOR 6 WEEKS., INFECTION WITH MENINGITIS , HX OF POSSIBLE SEIZURES., SHORT TERM MEMORY., HX OF DVT LEFT THIGH (APR 2017)., MISSING SKULL CAP ON RIGHT - WEARS HELMET. History of Any Multi-Drug Resistant Organisms: None Reported Past Surgical History: Breast Surgery Additional Past Surgical History / Comment(s): BRAIN TUMOR REMOVAL 11/2017, SURGERY FOR BRAIN INFECTION (FEB-APR),. PEG TUBE., HX OF TUMMY TUCK AND BREAST LIFT., CYST ON KNEE REMOVED. Past Anesthesia/Blood Transfusion Reactions: No Reported Reaction Additional Past Anesthesia/Blood Transfusion Reaction / Comment(s): CLAUSTROPHOBIC Past Psychological History: Anxiety Smoking Status: Former smoker Past Alcohol Use History: None Reported Past Drug Use History: None Reported - Past Family History Father Family Medical History: Cancer Additional Family Medical History / Comment(s): BRAIN CANCER Sister(s) Family Medical History: Cancer Additional Family Medical History / Comment(s): LEUKEMIA General Exam Limitations: altered mental status General appearance: alert, in no apparent distress Head exam: Present: atraumatic, normocephalic. Absent: normal inspection (Defect noted on the right parietal region) Eye exam: Present: normal appearance, PERRL, EOMI. Absent: scleral icterus, conjunctival injection, periorbital swelling ENT exam: Present: normal exam, mucous membranes moist Neck exam: Present: normal inspection, full ROM. Absent: tenderness, meningismus, lymphadenopathy Respiratory exam: Present: normal lung sounds bilaterally. Absent: respiratory distress, wheezes, rales, rhonchi, stridor Cardiovascular Exam: Present: regular rate, normal rhythm, normal heart sounds. Absent: systolic murmur, diastolic murmur, rubs, gallop, clicks GI/Abdominal exam: Present: soft, tenderness, normal bowel sounds. Absent: distended, guarding, rebound, rigid Neurological exam: Present: alert, oriented X3, CN II-XII intact Skin exam: Present: warm, dry, intact, normal color. Absent: rash Course Vital Signs 09/09/18 10:31 Temperature 98 F Pulse Rate 97 Respiratory 18 Rate Blood Pressure 148/95 O2 Sat by Pulse 100 Oximetry Medical Decision Making - Medical Decision Making 63-year-old female presented from for fatigue, altered mental status. Patient has failed outpatient treatment for urinary tract infection. Patient will be admitted for UTI, altered mental status, failure of outpatient treatment, history of brain cancer on chemotherapy - Lab Data Result diagrams: 09/09/18 11:22 09/09/18 11:22 Lab Results 09/09/18 09/09/18 09/09/18 Range/Units 11:22 11:22 11:22 WBC 4.7 (3.8-10.6) k/uL RBC 3.88 (3.80-5.40) m/uL Hgb 12.3 (11.4-16.0) gm/dL Hct 37.3 (34.0-46.0) % MCV 96.3 (80.0-100.0) fL MCH 31.7 (25.0-35.0) pg MCHC 32.9 (31.0-37.0) g/dL RDW 14.9 (11.5-15.5) % Plt Count 273 (150-450) k/uL Neutrophils % 80 % Lymphocytes % 9 % Monocytes % 7 % Eosinophils % 1 % Basophils % 1 % Neutrophils # 3.7 (1.3-7.7) k/uL Lymphocytes # 0.4 L (1.0-4.8) k/uL Monocytes # 0.3 (0-1.0) k/uL Eosinophils # 0.1 (0-0.7) k/uL Basophils # 0.0 (0-0.2) k/uL PT (9.0-12.0) sec INR (<1.2) APTT (22.0-30.0) sec Sodium 138 (137-145) mmol/L Potassium 4.3 (3.5-5.1) mmol/L Chloride 102 (98-107) mmol/L Carbon Dioxide 26 (22-30) mmol/L Anion Gap 10 mmol/L BUN 21 H (7-17) mg/dL Creatinine 0.74 (0.52-1.04) mg/dL Est GFR (CKD-EPI)AfAm >90 (>60 ml/min/1.73 sqM) Est GFR (CKD-EPI)NonAf 87 (>60 ml/min/1.73 sqM) Glucose 108 H (74-99) mg/dL Plasma Lactic Acid Matthew 1.1 (0.7-2.0) mmol/L Calcium 10.2 (8.4-10.2) mg/dL Total Bilirubin 0.3 (0.2-1.3) mg/dL AST 19 (14-36) U/L ALT 19 (9-52) U/L Alkaline Phosphatase 73 (38-126) U/L Ammonia <9 (<30) umol/L Troponin I (0.000-0.034) ng/mL Total Protein 7.8 (6.3-8.2) g/dL Albumin 4.7 (3.5-5.0) g/dL Urine Color Urine Appearance (Clear) Urine pH (5.0-8.0) Ur Specific [place] (1.001-1.035) Urine Protein (Negative) Urine Glucose (UA) (Negative) Urine Ketones (Negative) Urine Blood (Negative) Urine Nitrite (Negative) Urine Bilirubin (Negative) Urine Urobilinogen (<2.0) mg/dL Ur Leukocyte Esterase (Negative) Urine RBC (0-5) /hpf Urine WBC (0-5) /hpf Ur Squamous Epith Cells (0-4) /hpf Urine Bacteria (None) /hpf Urine Mucus (None) /hpf 09/09/18 09/09/18 09/09/18 Range/Units 11:22 11:22 11:28 WBC (3.8-10.6) k/uL RBC (3.80-5.40) m/uL Hgb (11.4-16.0) gm/dL Hct (34.0-46.0) % MCV (80.0-100.0) fL MCH (25.0-35.0) pg MCHC (31.0-37.0) g/dL RDW (11.5-15.5) % Plt Count (150-450) k/uL Neutrophils % % Lymphocytes % % Monocytes % % Eosinophils % % Basophils % % Neutrophils # (1.3-7.7) k/uL Lymphocytes # (1.0-4.8) k/uL Monocytes # (0-1.0) k/uL Eosinophils # (0-0.7) k/uL Basophils # (0-0.2) k/uL PT 10.0 (9.0-12.0) sec INR 0.9 (<1.2) APTT 21.6 L (22.0-30.0) sec Sodium (137-145) mmol/L Potassium (3.5-5.1) mmol/L Chloride (98-107) mmol/L Carbon Dioxide (22-30) mmol/L Anion Gap mmol/L BUN (7-17) mg/dL Creatinine (0.52-1.04) mg/dL Est GFR (CKD-EPI)AfAm (>60 ml/min/1.73 sqM) Est GFR (CKD-EPI)NonAf (>60 ml/min/1.73 sqM) Glucose (74-99) mg/dL Plasma Lactic Acid Matthew (0.7-2.0) mmol/L Calcium (8.4-10.2) mg/dL Total Bilirubin (0.2-1.3) mg/dL AST (14-36) U/L ALT (9-52) U/L Alkaline Phosphatase (38-126) U/L Ammonia (<30) umol/L Troponin I <0.012 (0.000-0.034) ng/mL Total Protein (6.3-8.2) g/dL Albumin (3.5-5.0) g/dL Urine Color Yellow Urine Appearance Clear (Clear) Urine pH 7.0 (5.0-8.0) Ur Specific [place] 1.011 (1.001-1.035) Urine Protein Negative (Negative) Urine Glucose (UA) Negative (Negative) Urine Ketones Negative (Negative) Urine Blood Negative (Negative) Urine Nitrite Negative (Negative) Urine Bilirubin Negative (Negative) Urine Urobilinogen <2.0 (<2.0) mg/dL Ur Leukocyte Esterase Small H (Negative) Urine RBC 1 (0-5) /hpf Urine WBC 16 H (0-5) /hpf Ur Squamous Epith Cells <1 (0-4) /hpf Urine Bacteria Rare H (None) /hpf Urine Mucus Rare H (None) /hpf - EKG Data EKG Comments: EKG performed at 11:59 normal sinus rhythm rate of 84 MO 132 QRS 72 QT/QTC 390/467 Disposition Clinical Impression: UTI (urinary tract infection), Weakness, Failure of outpatient treatment, Back pain, History of brain cancer Disposition: ADMITTED IP TO THIS [facility] Condition: Fair Referrals: Yosvany Delarosa MD [Primary Care Provider] - 1-2 days
[2018-09-09 11:39] LABS: Basophils % (A) 1 %; Eosinophils # (A) 0.1 k/uL (0-0.7); Eosinophils % (A) 1 %; HCT 37.3 % (34.0-46.0); HGB 12.3 gm/dL (11.4-16.0); Lymphocytes # (A) 0.4 k/uL (1.0-4.8); Lymphocytes % (A) 9 %; MCH 31.7 pg (25.0-35.0); MCHC 32.9 g/dL (31.0-37.0); MCV 96.3 fL (80.0-100.0); Mean Platelet Volume 7.9; Monocytes # (A) 0.3 k/uL (0-1.0); Monocytes % (A) 7 %; Neutrophils # (A) 3.7 k/uL (1.3-7.7); Neutrophils % (A) 80 %; Platelet Count 273 k/uL (150-450); RBC 3.88 m/uL (3.80-5.40); RDW 14.9 % (11.5-15.5); WBC 4.7 k/uL (3.8-10.6)
[2018-09-09 11:42] LABS: Appearance,Urine Clear (Clear); Bacteria,Urine Rare /hpf; Bilirubin,Urine Negative (Negative); Blood,Urine Negative (Negative); Color,Urine Yellow; Glucose,Urine (UA) Negative (Negative); Ketones,Urine Negative (Negative); Leukocyte Esterase,Urine Small (Negative); Mucus,Urine Rare /hpf; Nitrite,Urine Negative (Negative); Protein,Urine Negative (Negative); RBC,Urine 1 /hpf (0-5); Specific Gravity,Urine 1.011 (1.001-1.035); Squamous Epithelial Cell,Urine <1 /hpf (0-4); Urobilinogen,Urine <2.0 mg/dL (<2.0)
[2018-09-09 11:46] LABS: Ammonia <9 umol/L (<30); Lactic Acid, Venous 1.1 mmol/L (0.7-2.0)
[2018-09-09 11:47] LABS: ALT 19 U/L (9-52); AST 19 U/L (14-36); African American GFR (CKD) >90 (>60 ml/min/1.73 sqM); Albumin 4.7 g/dL (3.5-5.0); Alkaline Phosphatase 73 U/L (38-126); Anion Gap 10 mmol/L; Blood Urea Nitrogen 21 mg/dL (7-17); Calcium 10.2 mg/dL (8.4-10.2); Carbon Dioxide 26 mmol/L (22-30); Chloride 102 mmol/L (98-107); Glucose 108 mg/dL (74-99); Potassium 4.3 mmol/L (3.5-5.1); Sodium 138 mmol/L (137-145); Total Bilirubin 0.3 mg/dL (0.2-1.3); Total Protein 7.8 g/dL (6.3-8.2)
[2018-09-09 11:57] LABS: INR 0.9 (<1.2)
[2018-09-09 12:05] LABS: Partial Thromboplastin Time 21.6 sec (22.0-30.0)
[2018-09-09] MEDS ORDERED: cefTRIAXone IN SWFI 1,000 MG/10 ML SYRINGE IVP STA (12:07)
[2018-09-09] MEDS ORDERED: NALOXONE 0.4 MG/ML 1 ML VIAL IV PRN (12:08)
[2018-09-09 15:24] VITALS: BMI 23.8
[2018-09-09] MEDS: HYDROcodone/APAP 5-325MG 1 EACH TAB PO PRN ×2 (16:07→21:25)
[2018-09-09] MEDS: SODIUM CHLORIDE 0.9% 1,000 ML IV SCH (16:45)
[2018-09-09] MEDS: DOCUSATE 100 MG CAP PO SCH (21:24)
[2018-09-09] MEDS: levETIRAcetam 500 MG TAB PO SCH (21:24)
[2018-09-09] MEDS: APIXABAN 2.5 MG TABLET PO SCH (21:24)
[2018-09-10] MEDS: SODIUM CHLORIDE 0.9% 1,000 ML IV SCH (05:19)
[2018-09-10] MEDS: HYDROcodone/APAP 5-325MG 1 EACH TAB PO PRN ×2 (05:21→21:12)
[2018-09-10] MEDS: DOCUSATE 100 MG CAP PO SCH ×2 (08:00→21:12)
[2018-09-10] MEDS: ATORVASTATIN 20 MG TAB PO SCH (08:00)
[2018-09-10] MEDS: APIXABAN 2.5 MG TABLET PO SCH ×2 (08:00→21:12)
[2018-09-10] MEDS: levETIRAcetam 500 MG TAB PO SCH ×2 (08:00→21:12)
[2018-09-10] MEDS: HYDROmorphone 0.5 MG/0.5 ML SYRINGE IVP PRN ×3 (08:04→21:10)
--- NOTE | 2018-09-10 12:56 | P.HPIM ---
History of Present Illness H&P Date: 09/10/18 Chief Complaint: Weakness and fatigue, ongoing UTI Asya is a 63-year-old white female well-known to me. She has a history of glioblastoma multiforme he. She currently is undergoing chemotherapy with hematology/oncology. She was recently tapered off steroids for appetite and pain control. Her reports a several day history of worsening urinary frequency prompting an ER visit on September 07. He received IV antibiotics were sent home. There was evidence of dehydration that visit too. She returns to the emergency room 09/09/2018 with increasing weakness and some confusion and fatigue. The emergency urinalysis showed occasional yeast, many bacteria, 22 WBCs per high-powered field. Positive large leukocyte esterase. Cultures reveal positive Klebsiella. She was placed on Rocephin. She is been restarted on diet and takes medications of Keppra. Her DVT treatment medication of Elequis. Due to ongoing thoracic back pain, she is on [place] and Dilaudid was o rdered for breakthrough pain. Currently she is somewhat improved. Her and daughter her bedside. She continues to have some urinary urgency. She denies any chest pains, pressures, or shortness of breath this time. He denies any nausea or vomiting. report much better appetite today. Review of Systems All systems: negative Past Medical History Past Medical History: Cancer (Glioblastoma multiformie, with radiation and chemotherapy treatment.DIAGNOSED NOV 30 2017, PT HAD SURGERY 12/02/17 AND CHEMO & RADIATION TX FOR 6 WEEKS., ), Neurologic Disorder (History of Meningitis since neurosurgery, seizures as a sequelae of glioblastoma and neurosurgery, short- term memory loss), Vascular Disorder (History of DVT April 2018) History of Any Multi-Drug Resistant Organisms: MRSA Date of last positivie culture/infection: unknown MDRO Source:: [facility] Past Surgical History: Breast Surgery (Breast lift) Past Anesthesia/Blood Transfusion Reactions: No Reported Reaction Additional Past Anesthesia/Blood Transfusion Reaction / Comment(s): CLAUSTROPHOB IC Past Psychological History: Anxiety Smoking Status: Former smoker Past Alcohol Use History: None Reported Additional Past Alcohol Use History / Comment(s): QUIT SMOKING SUMMER 2017., SMOKED 4 CIGARETTES/WEEK. Past Drug Use History: None Reported Additional Drug Use History / Comment(s): TAKING MARINOL FOR APPETITE CURRENTLY - Past Family History Father Family Medical History: Cancer Additional Family Medical History / Comment(s): BRAIN CANCER Sister(s) Family Medical History: Cancer Additional Family Medical History / Comment(s): LEUKEMIA Medications and Allergies Home Medications Medication Instructions Recorded Confirmed Type levETIRAcetam [Keppra] 1,000 mg PO BID 05/10/18 09/09/18 History Apixaban [Eliquis] 2.5 mg PO BID 06/01/18 09/09/18 History Atorvastatin [Lipitor] 20 mg PO DAILY 08/08/18 09/09/18 History Docusate [Colace] 100 mg PO BID 08/08/18 09/09/18 History Temozolomide [Temodar] 140 mg PO DIRECTED 08/08/18 09/09/18 History Temozolomide [Temodar] 180 mg PO DIRECTED 08/08/18 09/09/18 History HYDROcodone/APAP 5-325MG [[place] 1 tab PO Q6H PRN 09/07/18 09/09/18 History 5-325] Nitrofurantoin Monohyd/M-Cryst 100 mg PO Q12HR #14 cap 09/07/18 09/09/18 Rx [Macrobid] Allergies Allergy/AdvReac Type Severity Reaction Status Date / Time ampicillin Allergy Unknown Swelling Verified 09/09/18 11:22 Physical Exam Vitals: Vital Signs Temp Pulse Resp BP Pulse Ox 09/10/18 08:00 18 09/10/18 04:45 97.8 F 96 18 156/99 98 09/10/18 00:09 98 18 09/09/18 21:35 97.0 F L 90 18 147/72 95 09/09/18 15:00 97.5 F L 98 18 165/89 100 Intake and Output 09/09/18 09/10/18 09/10/18 22:59 06:59 14:59 Intake Total 650 Balance 650 Intake: Intake, IV Titration 650 Amount Sodium Chloride 0.9% 1, 600 000 ml @ 75 mls/hr IV . [id number] SABRINA Rx#:[id number] cefTRIAXone 1 gm In 50 Sodium Chloride 0.9% 50 ml @ 100 mls/hr IVPB ONCE ONE Rx#:[id number] Other: Voiding Method Toilet Diaper Incontinent Bedpan Incontinent # Voids 1 2 GENERAL: Somnolent, and thin. She is easily arousable HEAD: Skull missing to the right frontotemporal lobe. EYES: extraocular movements intact, sclera anicteric, conjunctiva are normal. ENT:nares patent, oropharynx clear without exudates. Moist mucous membranes. NECK: Normal range of motion, supple without lymphadenopathy or JVD, no thyromegaly LUNGS: Breath sounds slightly coarse to auscultation bilaterally and equal. No wheezes rales or rhonchi. HEART: Regular rate and rhythm without murmurs, rubs or gallops.S1S2 Normal ABDOMEN: Soft, , normoactive bowel sounds. No guarding, no rebound. No masses appreciated. Suprapubic tenderness to palpation. EXTREMITIES: Normal range of motion, no pitting or edema. No clubbing or cyanosis. NEUROLOGICAL: Cranial nerves II through XII grossly intact. Normal speech, gait not tested, strength is 5 out of 5 upper and lower extremities and equal. PSYCH: Normal mood, normal affect. SKIN: Warm, Dry, normal turgor, no rashes or lesions noted. Results CBC & Chem 7: 09/09/18 11:22 09/09/18 11:22 Labs: Microbiology - Last 24 Hours (Table) 09/09/18 11:28 Urine Culture - Preliminary Urine,Voided CT scan - pelvis: report reviewed Thrombosis Risk Factor Assmnt - DVT/VTE Prophylaxis DVT/VTE Prophylaxis: Pharmacologic Prophylaxis ordered (She will continue on her Elequis) - Choose All That Apply Any of the Below Risk Factors Present?: No Assessment and Plan (1) Recurrent UTI Current Visit: Yes Status: Acute Code(s): N39.0 - URINARY TRACT INFECTION, SITE NOT SPECIFIED SNOMED Code(s): 672936213 (2) Debility Current Visit: Yes Status: Acute Code(s): R53.81 - OTHER MALAISE SNOMED Code(s): 77623768 (3) Personal history of chemotherapy Current Visit: Yes Status: Acute Code(s): Z92.21 - PERSONAL HISTORY OF ANTINEOPLASTIC CHEMOTHERAPY SNOMED Code(s): 504280899212578 (4) History of radiation therapy Current Visit: Yes Status: Acute Code(s): Z92.3 - PERSONAL HISTORY OF IRRADIATION SNOMED Code(s): 809558819 (5) Back pain Current Visit: Yes Status: Acute Code(s): M54.9 - DORSALGIA, UNSPECIFIED SNOMED Code(s): 073111666 (6) Failure of outpatient treatment Current Visit: Yes Status: Acute Code(s): Z78.9 - OTHER SPECIFIED HEALTH STATUS SNOMED Code(s): 764391860 (7) History of brain cancer Current Visit: Yes Status: Acute Code(s): Z85.841 - PERSONAL HISTORY OF MALIGNANT NEOPLASM OF BRAIN SNOMED Code(s): 447836022 (8) Weakness Current Visit: Yes Status: Acute Code(s): R53.1 - WEAKNESS SNOMED Code(s): 02588273 Plan: I'll consult Dr. Capps, infectious disease, for her recurrent UTI, positive for Klebsiella. She'll continue on Rocephin until he sees her and makes recommendations. As she is currently undergoing chemotherapy, we will consult Dr. Stiles and his group for management and recommendations. Due to her history disease, I'll consult neurology for further evaluations. Repeat labs in a.m. She'll be reevaluated next 24 hours.
[2018-09-10 13:34] LABS: Basophils % (A) 1 %; Eosinophils # (A) 0.2 k/uL (0-0.7); Eosinophils % (A) 5 %; HCT 35.6 % (34.0-46.0); HGB 11.5 gm/dL (11.4-16.0); Lymphocytes # (A) 0.5 k/uL (1.0-4.8); Lymphocytes % (A) 13 %; MCH 32.1 pg (25.0-35.0); MCHC 32.3 g/dL (31.0-37.0); MCV 99.4 fL (80.0-100.0); Macrocytosis Slight; Mean Platelet Volume 7.3; Monocytes # (A) 0.2 k/uL (0-1.0); Monocytes % (A) 7 %; Neutrophils # (A) 2.4 k/uL (1.3-7.7); Neutrophils % (A) 71 %; Platelet Count 259 k/uL (150-450); RBC 3.58 m/uL (3.80-5.40); RDW 14.9 % (11.5-15.5); WBC 3.4 k/uL (3.8-10.6)
[2018-09-10 13:42] LABS: African American GFR (CKD) >90 (>60 ml/min/1.73 sqM); Anion Gap 8 mmol/L; Blood Urea Nitrogen 20 mg/dL (7-17); Calcium 9.4 mg/dL (8.4-10.2); Carbon Dioxide 25 mmol/L (22-30); Chloride 105 mmol/L (98-107); Glucose 126 mg/dL (74-99); Magnesium 1.7 mg/dL (1.6-2.3); Potassium 4.1 mmol/L (3.5-5.1); Sodium 138 mmol/L (137-145)
--- NOTE | 2018-09-10 14:01 | XR ---
EXAMINATION TYPE: XR chest 2V DATE OF EXAM: 09/10/2018 COMPARISON: 02/13/2018 TECHNIQUE: PA and lateral views submitted. HISTORY: Abnormal lung sounds FINDINGS: The lungs are clear and there is no pneumothorax, pleural effusion, or focal pneumonia. Hyperinflat ion suggests COPD. Diffuse osteopenia noted. Atherosclerotic change aorta. Degenerative change of the spine. IMPRESSION: 1. Correlate for COPD..
--- NOTE | 2018-09-10 23:10 | P.CONS ---
History of Present Illness - Reason for Consult Consult date: 09/10/18 Recurrent urinary tract infection Requesting physician: Yosvany Delarosa - Chief Complaint Weakness no energy and concern for UTI - History of Present Illness Patient is 63-year-old female with a past medical history significant for glioblastoma multiforme patient is status post surgery at [facility] currently on chemo per hematology oncology, patient apparently seemed to have problem with recurrent UTI over the last 2 months and has been treated multiple courses of antibiotics, the patient was seen at [facility] ER on 09/07/2018 with generalized weakness urinary frequency she did have CT of abdominal pelvis which showed hydronephrosis and the bladder distended smoothly per radiology report patient did received a dose of IV antibiotic and was discharged home on oral antibiotic however the is unclear about the name, patient has now been brought back to the ER yesterday with as he complains of weakness pathology urinary frequency and some difficulty urination and suprapubic discomfort located history of any nausea vomiting or high-grade fever patient has been reevaluated noticed to have a positive UA she has been started on Rocephin admitted to the hospital infectious disease was consulted for further recommendation regarding recurrent UTI Review of Systems Positive points has been mentioned in HPI rest of the systems negative Past Medical History Past Medical History: Cancer (Glioblastoma multiformie, with radiation and chemotherapy treatment.DIAGNOSED NOV 30 2017, PT HAD SURGERY 12/02/17 AND CHEMO & RADIATION TX FOR 6 WEEKS., ), Neurologic Disorder (History of Meningitis since neurosurgery, seizures as a sequelae of glioblastoma and neurosurgery, short- term memory loss), Vascular Disorder (History of DVT April 2018) Additional Past Medical History / Comment(s): BRAIN CANCER DIAGNOSED NOV 30 2017, PT HAD SURGERY 12/02/17 AND CHEMO & RADIATION TX FOR 6 WEEKS., INFECTION WITH MENINGITIS , HX OF POSSIBLE SEIZURES., SHORT TERM MEMORY., HX OF DVT LEFT THIGH (APR 2017)., MISSING SKULL CAP ON RIGHT - WEARS HELMET. History of Any Multi-Drug Resistant Organisms: MRSA Year Discovered:: unknown MDRO Source:: [facility] Past Surgical History: Breast Surgery (Breast lift) Additional Past Surgical History / Comment(s): BRAIN TUMOR REMOVAL 11/2017, SURGERY FOR BRAIN INFECTION (FEB-APR),. PEG TUBE and removal in july, HX OF TUMMY TUCK AND BREAST LIFT., CYST ON KNEE REMOVED. Past Anesthesia/Blood Transfusion Reactions: No Reported Reaction Additional Past Anesthesia/Blood Transfusion Reaction / Comm: CLAUSTROPHOBIC Past Psychological History: Anxiety Smoking Status: Former smoker Past Alcohol Use History: None Reported Additional Past Alcohol Use History / Comment(s): QUIT SMOKING SUMMER 2017., SMOKED 4 CIGARETTES/WEEK. Past Drug Use History: None Reported Additional Drug Use History / Comment(s): TAKING MARINOL FOR APPETITE CURRENTLY - Past Family History Father Family Medical History: Cancer Additional Family Medical History / Comment(s): BRAIN CANCER Sister(s) Family Medical History: Cancer Additional Family Medical History / Comment(s): LEUKEMIA Medications and Allergies Home Medications Medication Instructions Recorded Confirmed Type levETIRAcetam [Keppra] 1,000 mg PO BID 05/10/18 09/09/18 History Apixaban [Eliquis] 2.5 mg PO BID 06/01/18 09/09/18 History Atorvastatin [Lipitor] 20 mg PO DAILY 08/08/18 09/09/18 History Docusate [Colace] 100 mg PO BID 08/08/18 09/09/18 History Temozolomide [Temodar] 140 mg PO DIRECTED 08/08/18 09/09/18 History Temozolomide [Temodar] 180 mg PO DIRECTED 08/08/18 09/09/18 History HYDROcodone/APAP 5-325MG [[place] 1 tab PO Q6H PRN 09/07/18 09/09/18 History 5-325] Nitrofurantoin Monohyd/M-Cryst 100 mg PO Q12HR #14 cap 09/07/18 09/09/18 Rx [Macrobid] Allergies Allergy/AdvReac Type Severity Reaction Status Date / Time ampicillin Allergy Unknown Swelling Verified 09/09/18 11:22 Physical Exam Vitals: Vital Signs Temp Pulse Resp BP Pulse Ox 09/10/18 13:00 97.6 F 92 18 128/93 98 09/10/18 08:00 18 09/10/18 04:45 97.8 F 96 18 156/99 98 09/10/18 00:09 98 18 09/09/18 21:35 97.0 F L 90 18 147/72 95 Intake and Output 09/10/18 09/10/18 09/10/18 06:59 14:59 22:59 Other: Voiding Method Diaper Incontinent Toilet Incontinent Incontinent # Voids 2 2 GENERAL DESCRIPTION: Middle-aged female lying in bed, no distress. No tachypnea or accessory muscle of respiration use. HEENT: Shows Pallor , no scleral icterus. Oral mucous membrane is dry. No pharyngeal erythema or thrush NECK: Trachea central, no thyromegaly. LUNGS: Unlabored breathing. Clear to auscultation anteriorly. No wheeze or crackle. HEART: S1, S2, regular rate and rhythm. No loud murmur ABDOMEN: Soft, no tenderness , guarding or rigidity, no organomegaly EXTREMITIES: No edema of feet. SKIN: No rash, no masses palpable. NEUROLOGICAL: The patient is awake, alert, oriented x3, mood and affect normal Results CBC & Chem 7: 09/10/18 13:11 09/10/18 13:11 Labs: Abnormal Lab Results - Last 24 Hours (Table) 09/10/18 09/10/18 Range/Units 13:11 13:11 WBC 3.4 L (3.8-10.6) k/uL RBC 3.58 L (3.80-5.40) m/uL Lymphocytes # 0.5 L (1.0-4.8) k/uL BUN 20 H (7-17) mg/dL Glucose 126 H (74-99) mg/dL Microbiology - Last 24 Hours (Table) 09/09/18 11:22 Blood Culture - Preliminary Blood No Growth after 24 hours 09/09/18 11:28 Urine Culture - Preliminary Urine,Voided Assessment and Plan Assessment: 1-patient had been in the hospital with urinary tract infection failing outpatient oral antibiotic therapy however is not very clear about antibiotic the patient was sent home on 09/07/2018 as the Klebsiella she did grew on urine culture on 09/07/2018 he did shows some resistant pattern with a q uestion of possible Ceftin or Levaquin the patient has been sent home on with this organism has been resistant 2-recurrent UTIs over the last few months in this patient who did have surgery for glioblastoma multiforme and has been exposed to chemo, CT of abdominal pelvis negative for any structural abnormality Plan: 1-patient will be treated with Rocephin 1 g daily to which the Klebsiella was sensitive while waiting for the repeat urine culture finalized 2-options for recurrent UTI could be a low-dose prophylactic antibiotic which if fails as patient is postmenopausal she may benefit from intravaginal estrogen cream we will follow up on clinical condition and cultures to further adjust medication if needed Thank you for this consultation will follow this patient along with you Time with Patient: Greater than 30
[2018-09-11] MEDS: HYDROmorphone 0.5 MG/0.5 ML SYRINGE IVP PRN ×2 (03:04→15:48)
[2018-09-11] MEDS: SODIUM CHLORIDE 0.9% 1,000 ML IV SCH ×3 (03:07→20:52)
[2018-09-11] MEDS: levETIRAcetam 500 MG TAB PO SCH ×2 (07:18→20:50)
[2018-09-11] MEDS: APIXABAN 2.5 MG TABLET PO SCH ×2 (07:18→20:50)
[2018-09-11] MEDS: ATORVASTATIN 20 MG TAB PO SCH (07:20)
[2018-09-11] MEDS: DOCUSATE 100 MG CAP PO SCH ×2 (07:20→20:50)
[2018-09-11 09:16] LABS: Basophils % (A) 1 %; Eosinophils # (A) 0.1 k/uL (0-0.7); Eosinophils % (A) 2 %; HCT 36.1 % (34.0-46.0); HGB 11.7 gm/dL (11.4-16.0); Lymphocytes # (A) 0.5 k/uL (1.0-4.8); Lymphocytes % (A) 8 %; MCH 31.9 pg (25.0-35.0); MCHC 32.3 g/dL (31.0-37.0); MCV 98.8 fL (80.0-100.0); Macrocytosis Slight; Mean Platelet Volume 7.5; Monocytes # (A) 0.3 k/uL (0-1.0); Monocytes % (A) 6 %; Neutrophils # (A) 4.6 k/uL (1.3-7.7); Neutrophils % (A) 82 %; Platelet Count 277 k/uL (150-450); RBC 3.66 m/uL (3.80-5.40); RDW 14.9 % (11.5-15.5); WBC 5.5 k/uL (3.8-10.6)
[2018-09-11 09:32] LABS: African American GFR (CKD) >90 (>60 ml/min/1.73 sqM); Anion Gap 10 mmol/L; Blood Urea Nitrogen 19 mg/dL (7-17); Calcium 9.6 mg/dL (8.4-10.2); Carbon Dioxide 26 mmol/L (22-30); Chloride 104 mmol/L (98-107); Glucose 136 mg/dL (74-99); Potassium 3.8 mmol/L (3.5-5.1); Sodium 140 mmol/L (137-145)
--- NOTE | 2018-09-11 13:05 | P.CONS ---
History of Present Illness - Reason for Consult Consult date: 09/11/18 Glioblastoma Requesting physician: Hussein Covarrubias - Chief Complaint Recurrent UTI, Back Pain, MS changes - History of Present Illness Asya is a pleasant female known to Dr. stiles for treatment of Glioblastoma, status post resection x2, temodar/xrt and now maintenance temodar. She has had recurrent issues with UTI since April. She presented to [facility] with mental status changes and UTI. Antibiotics initiated and Urology has been consulted. She also complains of back pain in which she is following Dr. Mary. She completed Day 4 of 5 of her 4th cycle of chemo Tuesday. Day 5 held for UTI. at bedside. SHe also receives care Dr. Hawk and Pj at [facility]. She has increased weakness and nausea and vomiting. Review of Systems Routine point review of systems was assessed and completed in all negative except for HPI Past Medical History Past Medical History: Cancer (Glioblastoma multiformie, with radiation and chemotherapy treatment.DIAGNOSED NOV 30 2017, PT HAD SURGERY 12/02/17 AND CHEMO & RADIATION TX FOR 6 WEEKS., ), Neurologic Disorder (History of Meningitis since neurosurgery, seizures as a sequelae of glioblastoma and neurosurgery, short- term memory loss), Vascular Disorder (History of DVT April 2018) Additional Past Medical History / Comment(s): BRAIN CANCER DIAGNOSED NOV 30 2017, PT HAD SURGERY 12/02/17 AND CHEMO & RADIATION TX FOR 6 WEEKS., INFECTION WITH MENINGITIS , HX OF POSSIBLE SEIZURES., SHORT TERM MEMORY., HX OF DVT LEFT THIGH (APR 2017)., MISSING SKULL CAP ON RIGHT - WEARS HELMET. History of Any Multi-Drug Resistant Organisms: MRSA Year Discovered:: unknown MDRO Source:: [facility] Past Surgical History: Breast Surgery (Breast lift) Additional Past Surgical History / Comment(s): BRAIN TUMOR REMOVAL 11/2017, SURGERY FOR BRAIN INFECTION (FEB-APR),. PEG TUBE and removal in july, HX OF TUMMY TUCK AND BREAST LIFT., CYST ON KNEE REMOVED. Past Anesthesia/Blood Transfusion Reactions: No Reported Reaction Additional Past Anesthesia/Blood Transfusion Reaction / Comm: CLAUSTROPHOBIC Past Psychological History: Anxiety Smoking Status: Former smoker Past Alcohol Use History: None Reported Additional Past Alcohol Use History / Comment(s): QUIT SMOKING SUMMER 2017., SMOKED 4 CIGARETTES/WEEK. Past Drug Use History: None Reported Additional Drug Use History / Comment(s): TAKING MARINOL FOR APPETITE CURRENTLY - Past Family History Father Family Medical History: Cancer Additional Family Medical History / Comment(s): BRAIN CANCER Sister(s) Family Medical History: Cancer Additional Family Medical History / Comment(s): LEUKEMIA Medications and Allergies Home Medications Medication Instructions Recorded Confirmed Type levETIRAcetam [Keppra] 1,000 mg PO BID 05/10/18 09/09/18 History Apixaban [Eliquis] 2.5 mg PO BID 06/01/18 09/09/18 History Atorvastatin [Lipitor] 20 mg PO DAILY 08/08/18 09/09/18 History Docusate [Colace] 100 mg PO BID 08/08/18 09/09/18 History Temozolomide [Temodar] 140 mg PO DIRECTED 08/08/18 09/09/18 History Temozolomide [Temodar] 180 mg PO DIRECTED 08/08/18 09/09/18 History HYDROcodone/APAP 5-325MG [[place] 1 tab PO Q6H PRN 09/07/18 09/09/18 History 5-325] Nitrofurantoin Monohyd/M-Cryst 100 mg PO Q12HR #14 cap 09/07/18 09/09/18 Rx [Macrobid] Allergies Allergy/AdvReac Type Severity Reaction Status Date / Time ampicillin Allergy Unknown Swelling Verified 09/09/18 11:22 gadobutrol [From Gadavist] Allergy Itching Unverified 09/11/18 17:00 Physical Exam Vitals: Vital Signs Temp Pulse Resp BP Pulse Ox 09/11/18 11:46 97.6 F 98 16 132/86 96 09/11/18 08:00 96 18 09/11/18 05:00 97.5 F L 96 18 139/84 98 09/11/18 00:10 16 09/10/18 21:00 98 F 100 16 125/85 97 09/10/18 13:00 97.6 F 92 18 128/93 98 Intake and Output 09/10/18 09/11/18 09/11/18 22:59 06:59 14:59 Intake Total 60 Balance 60 Intake: Oral 60 Other: Voiding Method Toilet Toilet Toilet Incontinent Incontinent Incontinent # Voids 1 3 Weight 58.967 kg General: Alert and Oriented x3, No Acute Distress Head: Righr skull evidence of removal, Neck: Supple Mouth: No Lesions, No Thrush Eyes: Non-sclerotic No Palpable cervical, supraclavicular, axillary adenopathy Heart: Regular Rate, Regular Rhythm Lungs: Clear to Ausculations, No Wheeze, No Rhonchi, Diminishe bilateral lower lobes, No increased respiratory effort noted Abdomen: Soft, Non-Distended, Non-Tended, BSx4 Extremities: No Edema, Equal Strength Neurological: No Focal Defects: No sensory or motor deficits noted Psych: Calm and cooperative Results CBC & Chem 7: 09/11/18 08:45 09/11/18 08:45 Labs: Abnormal Lab Results - Last 24 Hours (Table) 09/10/18 09/10/18 09/11/18 Range/Units 13:11 13:11 08:45 WBC 3.4 L (3.8-10.6) k/uL RBC 3.58 L 3.66 L (3.80-5.40) m/uL Lymphocytes # 0.5 L 0.5 L (1.0-4.8) k/uL BUN 20 H (7-17) mg/dL Glucose 126 H (74-99) mg/dL 09/11/18 Range/Units 08:45 WBC (3.8-10.6) k/uL RBC (3.80-5.40) m/uL Lymphocytes # (1.0-4.8) k/uL BUN 19 H (7-17) mg/dL Glucose 136 H (74-99) mg/dL Microbiology - Last 24 Hours (Table) 09/09/18 11:28 Urine Culture - Final Urine,Voided 09/09/18 11:22 Blood Culture - Preliminary Blood No Growth after 24 hours Assessment and Plan (1) Back pain Current Visit: Yes Status: Acute Code(s): M54.9 - DORSALGIA, UNSPECIFIED SNOMED Code(s): 956289259 (2) Debility Current Visit: Yes Status: Acute Code(s): R53.81 - OTHER MALAISE SNOMED Code(s): 24874179 (3) History of brain cancer Current Visit: Yes Status: Acute Code(s): Z85.841 - PERSONAL HISTORY OF MALIGNANT NEOPLASM OF BRAIN SNOMED Code(s): 452596328 (4) Recurrent UTI Current Visit: Yes Status: Acute Code(s): N39.0 - URINARY TRACT INFECTION, SITE NOT SPECIFIED SNOMED Code(s): 493961248 (5) Weakness Current Visit: Yes Status: Acute Code(s): R53.1 - WEAKNESS SNOMED Code(s): 05300233 Plan: Assessment and Recommendations: Glioblastoma: - Follows with Dr. Stiles, Dr. Hawk and Pj out of [facility] - On Maintenance Temodar, Cycle 4 - Status Post 4 of 5 days and on hold for current UTI Recurrent UTI: - Although Temodar may increase suspecibility to infection, it does not have a large impact on WBC or Immunoglobulins therefore with recurrent infections UTI, physiological or other etiological causes must be considered - Await Urology input Perisitent and worsening Back Pa9in: - Following with Dr. Mary - MRI spine is ordered and awaiting completion, could not complete secondary to difficulty saying still. Plan: - Monitor CBC daily - Monitor for cytopenias and transfuse hemoglobin less than 7, platelet less than 10 - Discussed with patient and - Plan to follow-up with Dr. Stiles after acute Infections for repeat MRI imaging - Ok to continue prednisone Physician Attestation: I have performed the full physical examination and reviewed the full history of this patient, as well as pertinent findings. I have created the compled impression and recommendations. I agree with the above dictation by ZARINA Rivera. This dictation has been written as a scribe.
[2018-09-11] MEDS: predniSONE 20 MG TAB PO SCH (13:08)
[2018-09-11] MEDS: INSULIN ASPART (NovoLOG) 100 UNIT/ML VIAL SQ SCH ×3 (13:13→21:01)
[2018-09-11] MEDS: HYDROcodone/APAP 5-325MG 1 EACH TAB PO PRN (14:38)
[2018-09-11 17:30] LABS: Glucose,Whole Blood 143 mg/dL (75-99)
[2018-09-11] MEDS ORDERED: diphenhydrAMINE 50 MG/ML 1 ML VIAL IVP STA (17:48)
[2018-09-11] MEDS ORDERED: HYDROmorphone 0.5 MG/0.5 ML SYRINGE IVP STA (18:35)
--- NOTE | 2018-09-11 19:09 | PN ---
PROGRESS NOTE DATE OF SERVICE: 09/11/2018. REASON FOR FOLLOW UP: Recurrent urinary tract infection. INTERVAL HISTORY: The patient is currently afebrile. The patient is breathing comfortably. Denies any headache. No chest pain, shortness of breath or cough, no abdominal pain or any diarrhea. PHYSICAL EXAMINATION: Her blood pressure is 132/86 with a pulse of 98, temperature 97.6. She is 96% on room air. General description is a middle-aged female lying in bed in no distress. HEENT examination: No pallor or scleral icterus. LUNGS unlabored breathing, clear to auscultation anteriorly. HEART S1, S2. Regular rate and rhythm. ABDOMEN: Soft, no tenderness. LABS: Hemoglobin is 11.7, white count 5.5. BUN of 19, creatinine 0.71. Urine culture done this admission has been negative so far. Last admission was Klebsiella. DIAGNOSTIC IMPRESSION AND PLAN: Patient admitted to the hospital with generalized weakness. No energy. Concern for recurrent UTI or failed outpatient oral antibiotic therapy. This patient with recent urine culture positive for Klebsiella. The patient is currently covered on Rocephin to continue, so far culture has been negative. Family has multiple questions regarding her care including history of MRSA infection of the scalp wound. Currently the patient has no signs of infection of the scalp wound and culture has been negative for MRSA to make it less likely and MRSA infection. MMODL / IJN: [id number] /
[2018-09-11 21:01] LABS: Glucose,Whole Blood 127 mg/dL (75-99)
--- NOTE | 2018-09-11 21:28 | MR ---
EXAMINATION TYPE: MR lumbar spine wo/w con DATE OF EXAM: 09/11/2018 COMPARISON: CT 08/08/2018 HISTORY: Back pain, history of cancer CONTRAST: 6 mL intravenous Gadavist. TECHNIQUE: Multiplanar, multisequence images of the lumbar spine were acquired. FINDINGS: Cord terminates at the L1-L2 level. Postcontrast imaging demonstrates multiple enhancing nodules within the cauda equina. The larger of t hese measures 0.5 to 0.6 cm and within the spinal canal posterior to the L3 and L4 levels. Additional smaller punctate areas are posterior to the L1 and T12 levels. Additional enhancing lesion is in the L5-S1 spinal canal measuring 0.7 cm. Small lesion may be in the anterior T11-T12 spinal canal space. In the axial plane the largest lesion posterior to the inferior endplate of L3 measures 1.0 x 1.0 cm. Disc heights are preserved. Disc desiccation is present throughout the lumbar spine. Vertebral body h eights are preserved. Foramen appear patent. No large disc herniations are identified. Small disc her niation may be present T11-12. IMPRESSION: 1. Findings compatible with drop metastases. A [place] level critical message alert has been initiated for Yosvany Delarosa via the [employer] Critical Results System on 09/11/2018 9:26 PM. This message alert has been sent to Yosvany Delarosa via the preferences provided by the clinician for the receipt of Radiology Critical Findings. Message ID [id number].
[2018-09-12] MEDS: HYDROcodone/APAP 5-325MG 1 EACH TAB PO PRN ×3 (02:20→18:04)
[2018-09-12 07:03] LABS: Glucose,Whole Blood 92 mg/dL (75-99)
[2018-09-12] MEDS: INSULIN ASPART (NovoLOG) 100 UNIT/ML VIAL SQ SCH ×4 (08:24→23:45)
[2018-09-12] MEDS: ATORVASTATIN 20 MG TAB PO SCH (08:25)
[2018-09-12] MEDS: APIXABAN 2.5 MG TABLET PO SCH ×2 (08:25→23:20)
[2018-09-12] MEDS: levETIRAcetam 500 MG TAB PO SCH ×2 (08:25→23:20)
[2018-09-12] MEDS: DOCUSATE 100 MG CAP PO SCH ×2 (08:25→23:21)
[2018-09-12] MEDS: predniSONE 20 MG TAB PO SCH (08:26)
[2018-09-12 11:48] LABS: Glucose,Whole Blood 111 mg/dL (75-99)
[2018-09-12] MEDS: SODIUM CHLORIDE 0.9% 1,000 ML IV SCH (12:42)
--- NOTE | 2018-09-12 12:52 | CONS ---
CONSULTATION DATE OF CONSULTATION: 09/12/2018. REFERRING PHYSICIAN: Dr. Delarosa HISTORY OF PRESENT ILLNESS: Thank you for allowing me to evaluate Asya Parekh who is a 63-year-old right- handed white female who presented to [facility] on 09/09/2018 for evaluation of mental status changes, lethargy and possible recurrent UTI. The patient's is at the bedside and provides the majority of the history. He states the patient has had recurrent UTIs since July of 2018 and has been on multiple courses of antibiotics. Initially, the patient's symptoms were dysuria, although more recently, he states the patient is often felt like she needed to urinate but was unable to go. He states this would happen as often as every 10 minutes. The patient was in the emergency room on 09/07/2018 with these issues, and urinalysis demonstrated a urinary tract infection with urine culture subsequently growing Klebsiella. The patient was placed on antibiotics, but due to persistence of symptoms, the patient returns to the emergency room on 09/09/2018 and was subsequently admitted. The patient had a complex neurologic history and was diagnosed with a glioblastoma multiforme in November 2017. The patient underwent surgical resection on 11/30/2017 at [facility] and 30 days later started chemotherapy/radiation. states that she did well following these treatments, but subsequently became lethargic, weak, returned to [facility] in February of 2018 and was found to have an epidural collection in the postsurgical site, was transferred back to [facility] and had a prolonged hospitalization where the patient was found to have infection in the postsurgical site, the right-sided bone flap was removed and has not been returned. Apparently during that hospitalization, the patient also developed seizures, was maintained on continuous EEG monitoring and placed on several anticonvulsant medications according to her . She is currently on Keppra 1000 mg p.o. b.i.d. since that hospitalization and has had no recurrent seizures. After the prolonged hospitalization, the patient went to long-term care through mid April 2018 and returned home. After the patient returned home, her states she was doing fairly well, she was able to walk without assistance and mentation was fairly well maintained. In June 2018, the patient began Temodar oral chemotherapy for 5 days per month. Within the past 3 to 4 weeks, the patient began complaining of headaches, spine pain, and had been receiving [place] but states that this would provoke constipation. At this time, the patient denies headaches and states she is doing "good". She does report spine pain when she attempts to move or walk. She states the spine pain is most prominent in the thoracic/lumbar region. On 09/11/2018, the patient underwent MRI lumbar spine with and without contrast, which demonstrated evidence of drop metastasis with multiple enhancing nodules within the cauda equina. The largest measuring 0.5 to 0.6 cm posterior to the L3-4 vertebral bodies, but other smaller lesions were seen posterior to T12/L1/L5/S1. The patient's states that she does not tolerate lying still for MRI's well and we did discuss the possibility of pursuing additional MRIs of the brain, cervical and thoracic spine, although preferred to wait until having conversation with Oncology in light of these newly identified drop metastases. I also had nursing staff pursue postvoid residual which demonstrated 475 mL of urine and the patient will be catheterized. ALLERGIES: AMPICILLIN. HOME MEDICATIONS: Keppra 1000 mg b.i.d. (since February 2018), Temodar, Macrobid, [place], Colace, Lipitor, and Eliquis. PAST MEDICAL HISTORY: Glioblastoma multiforme diagnosed in November 2017, left lower extremity DVT (in April 2018) and seizures as described above. PAST SURGICAL HISTORY: Initial GBM surgery 11/30/2017 followed by chemotherapy/radiation. The patient underwent additional right-sided craniotomy in February,, to clear postsurgical infection, the right-sided bone flap has remained off since that time, PEG tube placement with subsequent removal, tummy tuck/breast lift and benign cyst removal from the right knee. SOCIAL HISTORY: The patient quit smoking when she was diagnosed with the glioblastoma and occasionally consumes alcohol. She is with 3 children and lives in a house with her . She has been ambulating with a walker over the past 2 weeks. FAMILY HISTORY: Patient's father apparently had a glioblastoma, according to the patient's . REVIEW OF SYSTEMS: Fourteen systems are reviewed and no additional points are identified. The review of systems documented in history and physical. PHYSICAL EXAM: Upon arrival to the patient's room she was lying in bed, receptive to the examiner, affect is normal. She is quite alert, cooperative with the examination, jovial and also joking with other family members who were in the room. When I asked her if she had a headache, she denied this, but stated I have a "ass-ache" over there and pointed to her . VITAL SIGNS: Blood pressure is 144/87, pulse of 93, respiratory rate 18, temperature is 97.6. Patient has been afebrile through the course of this hospitalization. Weight is 58.96 kg on a 5 feet 2 inch frame. SKIN AND EXTREMITIES: Normal. HEAD AND NECK: There is evidence of a previous right-sided craniotomy with the bone flap off. Neck is supple without meningeal signs. Arteries are nontender and without bruits. HEART: Regular rate and rhythm. HIGHER CORTICAL FUNCTION: MENTAL STATUS: Patient was alert, oriented to self. She knew she was in the hospital. She did not know the city. She knew the year and month but not the day of the week. She was able to name, repeat and read. There was no right, left disorientation, finger agnosia, extinction to double simultaneous stimulation or dysarthria. CRANIAL NERVES II THROUGH XII: Pupils are equal and reactive to light symmetrically. No afferent pupillary defect. Visual dawn demonstrate a left superior quadrant anopia and extinction to double simultaneous visual stimulation in the left inferior quadrant. III, IV, : No ptosis. Extraocular movements are full. No nystagmus. V: Pinprick and light touch intact in all 3 divisions. Motor of V intact. VII: No facial asymmetry or weakness. Acuity intact to finger rub. IX, X: Palate samy in the midline. XI: Trapezius strength intact. XII: Tongue protruded midline without fasciculation or atrophy. No tongue bite was noted. MOTOR EXAMINATION: There is no pronator drift. There is mildly reduced bulk in the hand intrinsic muscles with normal tone and no involuntary movements are noted. No seizure activity was witnessed. Strength is 5 out of 5 throughout except at the interossei which were 4+ over 5 bilaterally. Sensory intact to pinprick, light touch in all extremities per patient. Reflexes 2+ over 4 throughout and symmetric. Plantar responses flexor bilaterally. Bustos's is present on the left. COORDINATION: There is mild dysmetria with right [id number]-bwpf and twcd-fa-zihl movements. Rapid alternating movements are slowed on the right with finger tapping. DIAGNOSTIC TESTING: Patient's laboratory exam demonstrates white blood count of 5.5, hemoglobin 11.7, platelet count 277. Sodium 140, potassium 3.8, BUN 19 with a creatinine of 0.7. Blood cultures demonstrated no growth. Urine culture demonstrated no growth, apparently the urine culture from 09/07/2018 demonstrated no Klebsiella. Urinalysis revealed small leukocyte esterase, negative nitrate, 16 WBCs, 1 RBC. INR 0.9. Calcium 9.6, magnesium 1.7. ALT 19, AST 19. Ammonia less than 9. Troponin negative. IMPRESSION: 1. Encephalopathy, likely secondary to recurrent urinary tract infection, prerenal azotemia, burden of disease and medication effect, improved. The patient has had no recent seizures. 2. Glioblastoma multiforme diagnosed in November 2017, status post surgery/chemo/radiation and currently on Temodar. The patient apparently developed infection in the right craniotomy surgical bed in February 2018, prompting prolonged hospitalization at which time the patient developed seizures. 3. 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 4. Urinary retention likely secondary to drop metastasis. 5. History of left lower extremity deep venous thrombosis, maintained on Eliquis. RECOMMENDATION: 1. I discussed my impression with the patient, and nursing staff. 2. Postvoid residuals have been requested and the one performed during my evaluation yielded 475 mL of residual. 3. The patient's wants to discuss her case and prognosis with Oncology in light of the newly identified drop metastasis. Depending on that discussion, we will consider pursuing MRI of the brain, the cervical and thoracic spine. 4. Will check a TSH. 5. We will follow with you. Thank you for allowing me to participate in the care of your patient. MMODL / IJN: [id number] / JEOVANNY
[2018-09-12] MEDS: HYDROmorphone 0.5 MG/0.5 ML SYRINGE IVP PRN ×2 (13:24→19:34)
[2018-09-12] MEDS ORDERED: RX INFO: IV CONTRAST WAS GIVEN 1 EACH MISC MISCELLANE PRN (13:25)
--- NOTE | 2018-09-12 13:25 | PN ---
PROGRESS NOTE DATE OF SERVICE: 09/12/2018 REASON FOR FOLLOWUP: Recurrent urinary tract infection. INTERVAL HISTORY: The patient is currently afebrile. The patient has been breathing comfortably. She was noted to have slight hallucination, but no agitation. No nausea or vomiting. Still has urine retention requiring intermittent catheterization. No diarrhea. PHYSICAL EXAMINATION: On examination, blood pressure is 158/91, with a pulse of 92 and temperature 97.6. She is 100% on room air. General description is a middle aged female, lying in bed, in no distress. RESPIRATORY SYSTEM: Unlabored breathing, clear to auscultation anteriorly. HEART: S1, S2. Regular rate and rhythm. ABDOMEN: Soft, no tenderness. LABS: No new labs have been obtained today. Urine culture has been negative. DIAGNOSTIC IMPRESSION AND PLAN: Patient admitted to the hospital with weakness and this patient with a possible component of urinary tract infection. Recently the cultures done on the 4th had been Klebsiella pneumoniae. Patient will be continued on oral antibiotic on discharge. Family at the bedside questions were answered. MMODL / IJN: [id number] /
--- NOTE | 2018-09-12 13:25 | P.PN ---
Subjective Progress Note Date: 09/12/18 Principal diagnosis: Glioblastoma on Main Temodar, progressed, UTI It appears per the MRI there is seeding down the spine Lumbar, rare considering her primary cancer and while on temodar. Objective - Vital Signs Vital signs: Vital Signs Temp 97.6 F 09/12/18 12:34 Pulse 92 09/12/18 12:34 Resp 17 09/12/18 12:34 BP 158/91 09/12/18 12:34 Pulse Ox 100 09/12/18 12:34 Intake & Output 09/11/18 09/12/18 09/12/18 18:59 06:59 18:59 Intake Total 600 1200 Balance 600 1200 Weight 58.967 kg Intake: Intake, IV Titration 600 1000 Amount Sodium Chloride 0.9% 1, 600 1000 000 ml @ 75 mls/hr IV . [id number] [facility] Rx#:[id number] Oral 200 Other: Voiding Method Toilet Toilet Incontinent Incontinent # Voids 3 3 # Bowel Movements 1 - Exam General: Alert and Oriented, poor historian,, No Acute Distress Head:skull missing right head Neck: Supple Mouth: No Lesions, No Thrush Eyes: Non-sclerotic No Palpable cervical, supraclavicular, axillary adenopathy Heart: Regular Rate, Regular Rhythm Lungs: Clear to Ausculations, No Wheeze, No Rhonchi, Diminishe bilateral lower l obes, No increased respiratory effort noted Abdomen: Soft, Non-Distended, Non-Tended, BSx4 Psych: Calm and cooperative - Labs CBC & Chem 7: 09/11/18 08:45 09/11/18 08:45 Labs: Abnormal Lab Results - Last 24 Hours (Table) 09/11/18 09/11/18 09/12/18 Range/Units 17:27 20:59 11:32 POC Glucose (mg/dL) 143 H 127 H 111 H (75-99) mg/dL Microbiology - Last 24 Hours (Table) 09/09/18 11:22 Blood Culture - Preliminary Blood No Growth after 48 hours Assessment and Plan (1) Back pain Current Visit: Yes Status: Acute Code(s): M54.9 - DORSALGIA, UNSPECIFIED SNOMED Code(s): 098375332 (2) Debility Current Visit: Yes Status: Acute Code(s): R53.81 - OTHER MALAISE SNOMED Code(s): 92402094 (3) History of brain cancer Current Visit: Yes Status: Acute Code(s): Z85.841 - PERSONAL HISTORY OF MALIGNANT NEOPLASM OF BRAIN SNOMED Code(s): 137872309 (4) Recurrent UTI Current Visit: Yes Status: Acute Code(s): N39.0 - URINARY TRACT INFECTION, SITE NOT SPECIFIED SNOMED Code(s): 797453151 (5) Weakness Current Visit: Yes Status: Acute Code(s): R53.1 - WEAKNESS SNOMED Code(s): 43400442 Plan: Assessment and Recommendations: Glioblastoma: - Follows with Dr. Stiles, Dr. Hawk and Pj out of [facility] - On Maintenance Temodar, Cycle 4 - Status Post 4 of 5 days and on hold for current UTI - Concern for progression, with the rarity of this picture, Abdomen and Pelvis was completed on 09/07 without evidence of new primary, will order CT Scan Chest to confirm no secondary primary cancer, will also restage MRI Brain Recurrent UTI: - Although Temodar may increase suspecibility to infection, it does not have a large impact on WBC or Immunoglobulins therefore with recurrent infections UTI, physiological or other etiological causes must be considered - Await Urology input Perisitent and worsening Back Pa9in: - Following with Dr. Mary - MRI spine is ordered and awaiting completion, could not complete secondary to difficulty saying still. Plan: -Radiation Oncology regarding metastatic seeding to spoine, I have spoke with Dr. Gonzalez regarding this case. -Spoke to primary team, apparently patient had a mild reaction after contrasted MRI yesterday, therfore will await contrasted MRI brain for 09.13.18, Premeds ordered - Prior to MRI patient will need sedation with use of dilaudid - Premedication ordered -Discussed findings with patient and patient, all questions answered.
--- NOTE | 2018-09-12 16:28 | CT ---
EXAMINATION TYPE: CT chest w con DATE OF EXAM: 09/12/2018 COMPARISON: 11/29/2017 HISTORY: 63-year-old female restaging Glioblastoma. TECHNIQUE: Contiguous axial scanning of the chest after the administration of 100ml mL of Isovue 300. Coronal/sagittal reconstructions performed. CT DLP: 266.6mGycm. Automatic exposure control utilized for a dose reduction. FINDINGS: Heart normal size with trace basilar pericardial fluid. Coronary vessel calcifications are present. Aorta normal caliber with conventional arch vessel branching anatomy. No thoracic lymphadenopathy. Evaluation the lung shows prominent dependent atelectasis as well as bibasilar atelectasis. Scattered mild centrilobular emphysema and biapical pleural parenchymal scarring. No consolidation or pleural effusion. No suspicious pulmonary nodule or mass is identified. More nodular and bandlike area of [place] at the posterior right costophrenic angle. Visualized upper abdomen shows moderate stool. Bones: Degenerative disc disease mid thoracic spine. Grade 1 anterolisthesis at T2-T3. IMPRESSION: 1. No metastatic disease identified in the chest. 2. Prominent dependent atelectasis including bandlike nodular subpleural atelectasis posterior right base. 3. COPD with mild emphysema.
--- NOTE | 2018-09-12 16:48 | P.PN ---
Subjective Progress Note Date: 09/11/18 Asya is a 63-year-old white female well-known to me. She has a history of glioblastoma multiforme he. She currently is undergoing chemotherapy with hematology/oncology. She was recently tapered off steroids for appetite and pain control. Her reports a several day history of worsening urinary f requency prompting an ER visit on September 07. He received IV antibiotics were sent home. There was evidence of dehydration that visit too. She returns to the emergency room 09/09/2018 with increasing weakness and some confusion and fatigue. The emergency urinalysis showed occasional yeast, many bacteria, 22 WBCs per high-powered field. Positive large leukocyte esterase. Cultures reveal positive Klebsiella. She was placed on Rocephin. She is been restarted on diet and takes medications of Keppra. Her DVT treatment medication of Elequis. Due to ongoing thoracic back pain, she is on [place] and Dilaudid was ordered for breakthrough pain. Currently she is somewhat improved. Her and daughter her bedside. She continues to have some urinary urgency. She denies any chest pains, pressures, or shortness of breath this time. He denies any nausea or vomiting. report much better appetite today. 09/11/2018 Weak, nauseated.Complains of worsening back pain. Receiving Dilaudid IV push for breakthrough pain . Lumbar spine MRI pending.chest x-ray suggestive of COPD with diffuse osteopenia noted, degenerative changes spine, arterial sclerotic change aorta. Denies any chest pain, palpitations or shortness of breath. Denies any headache. Maintained on IV Rocephin .Preliminary Blood cultures and urine Culture negative. Afebrile. Neurology consulted with recommendations pending. VSS, maintaining O2 sats in the mid 90s on room air. Objective - Vital Signs Vital signs: Vital Signs Temp 97.6 F 09/11/18 11:46 Pulse 98 09/11/18 14:44 Resp 16 09/11/18 14:44 BP 132/86 09/11/18 11:46 Pulse Ox 96 09/11/18 11:46 Intake & Output 09/10/18 09/11/18 09/11/18 18:59 06:59 18:59 Intake Total 60 600 Balance 60 600 Weight 58.967 kg Intake: Intake, IV Titration 600 Amount Sodium Chloride 0.9% 1, 600 000 ml @ 75 mls/hr IV . [id number] [facility] Rx#:[id number] Oral 60 Other: Voiding Method Toilet Toilet Toilet Incontinent Incontinent Incontinent # Voids 2 3 3 - Exam GENERAL: Somnolent, and thin. She is sleepy, easily arousable. Alert and oriented 3. No acute distress HEAD: Skull missing to the right frontotemporal lobe. EYES: extraocular movements intact, sclera anicteric, conjunctiva are normal. ENT:nares patent, oropharynx clear without exudates. Moist mucous membranes. NECK: Normal range of motion, supple without lymphadenopathy or JVD, no thyromegaly LUNGS: Unlabored, Breath sounds bilaterally coarse. No wheezes rales or rhonchi. HEART: Regular rate and rhythm without murmurs, rubs or gallops.S1,S2 Normal ABDOMEN: Soft,normoactive bowel sounds. No guarding, no rebound. No masses appreciated. Mild Suprapubic tenderness to palpation. EXTREMITIES: Normal range of motion, no pitting or edema. No clubbing or cyanosis. NEUROLOGICAL: Cranial nerves II through XII grossly intact. Normal speech, ambulates with walker slowly, strength is 5 out of 5 upper and lower extremities and equal. PSYCH: Normal mood, normal affect. SKIN: Warm, Dry, normal turgor, no rashes or lesions noted. - Labs CBC & Chem 7: 09/11/18 08:45 09/11/18 08:45 Labs: Abnormal Lab Results - Last 24 Hours (Table) 09/11/18 09/11/18 09/11/18 Range/Units 08:45 08:45 17:27 RBC 3.66 L (3.80-5.40) m/uL Lymphocytes # 0.5 L (1.0-4.8) k/uL BUN 19 H (7-17) mg/dL Glucose 136 H (74-99) mg/dL POC Glucose (mg/dL) 143 H (75-99) mg/dL Microbiology - Last 24 Hours (Table) 09/09/18 11:22 Blood Culture - Preliminary Blood No Growth after 48 hours 09/09/18 11:28 Urine Culture - Final Urine,Voided Assessment and Plan Assessment: (1) Recurrent UTI Current Visit: Yes Status: Acute Code(s): N39.0 - URINARY TRACT INFECTION, SITE NOT SPECIFIED SNOMED Code(s): 400587897 (2) Debility Current Visit: Yes Status: Acute Code(s): R53.81 - OTHER MALAISE SNOMED Code(s): 99009346 (3) Personal history of chemotherapy Current Visit: Yes Status: Acute Code(s): Z92.21 - PERSONAL HISTORY OF ANTINEOPLASTIC CHEMOTHERAPY SNOMED Code(s): 113551487556397 (4) History of radiation therapy Current Visit: Yes Status: Acute Code(s): Z92.3 - PERSONAL HISTORY OF IRRADIATION SNOMED Code(s): 112490216 (5) Back pain Current Visit: Yes Status: Acute Code(s): M54.9 - DORSALGIA, UNSPECIFIED SNOMED Code(s): 769774455 (6) Failure of outpatient treatment Current Visit: Yes Status: Acute Code(s): Z78.9 - OTHER SPECIFIED HEALTH STATUS SNOMED Code(s): 692386641 (7) History of brain cancer Current Visit: Yes Status: Acute Code(s): Z85.841 - PERSONAL HISTORY OF MALIGNANT NEOPLASM OF BRAIN SNOMED Code(s): 153267333 (8) Weakness Current Visit: Yes Status: Acute Code(s): R53.1 - WEAKNESS SNOMED Code(s): 80080079 Plan: Continue on current medication regime ,monitoring and symptomatic treatment. Maintained on IV antibiotics as per infectious disease. Cultures currently pending. Follow closely with oncology. Lumbar Spine MRI pending. 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 Prognosis guarded given multiple complex medical issues. The impression and plan of care has been dictated as directed. : I performed a history and examination of this patient, discussed the same with the dictator. I agree with the dictator's note ,documented as a scribe. Any additional findings or plans will be noted.
--- NOTE | 2018-09-12 17:00 | P.PN ---
Subjective Progress Note Date: 09/12/18 Asya is a 63-year-old white female well-known to me. She has a history of glioblastoma multiforme he. She currently is undergoing chemotherapy with hematology/oncology. She was recently tapered off steroids for appetite and pain control. Her reports a several day history of worsening urinary f requency prompting an ER visit on September 07. He received IV antibiotics were sent home. There was evidence of dehydration that visit too. She returns to the emergency room 09/09/2018 with increasing weakness and some confusion and fatigue. The emergency urinalysis showed occasional yeast, many bacteria, 22 WBCs per high-powered field. Positive large leukocyte esterase. Cultures reveal positive Klebsiella. She was placed on Rocephin. She is been restarted on diet and takes medications of Keppra. Her DVT treatment medication of Elequis. Due to ongoing thoracic back pain, she is on [place] and Dilaudid was ordered for breakthrough pain. Currently she is somewhat improved. Her and daughter her bedside. She continues to have some urinary urgency. She denies any chest pains, pressures, or shortness of breath this time. He denies any nausea or vomiting. report much better appetite today. 09/11/2018 Weak, nauseated.Complains of worsening back pain. Receiving Dilaudid IV push for breakthrough pain . Lumbar spine MRI pending.chest x-ray suggestive of COPD with diffuse osteopenia noted, degenerative changes spine, arterial sclerotic change aorta. Denies any chest pain, palpitations or shortness of breath. Denies any headache. Maintained on IV Rocephin .Preliminary Blood cultures and urine Culture negative. Afebrile. Neurology consulted with recommendations pending. VSS, maintaining O2 sats in the mid 90s on room air. 09/12/2018 lumbar spine MRI reporting multiple enhancing nodules within the cauda equina and within the spinal canal posterior to L3 and L4 levels, additional posterior to the L1 and T12 levels, additional enhancing lesion in the L5-S1 spinal canal, small lesion possibly an anterior T11-T12 spinal canal space, Disc desiccation present throughout lumbar spine, foramen patent, no large disc herniations; compatible with drop metastasis. Discussed findings with both patient and spouse at the bedside with further recommendations/options pending from oncology. Mild reaction of rash after MRI with contrast yesterday with no airway involvement. Brain MRI rescheduled for tomorrow with anaphylaxis premedication. Radiation oncology consulted. Neurology consult in place with recommendations pending. Final urine culture reporting no growth. Objective - Vital Signs Vital signs: Vital Signs Temp 97.6 F 09/12/18 05:00 Pulse 93 09/12/18 05:00 Resp 18 09/12/18 05:00 BP 144/87 09/12/18 05:00 Pulse Ox 100 09/12/18 05:00 Intake & Output 09/11/18 09/12/18 09/12/18 18:59 06:59 18:59 Intake Total 600 1200 Balance 600 1200 Weight 58.967 kg Intake: Intake, IV Titration 600 1000 Amount Sodium Chloride 0.9% 1, 600 1000 000 ml @ 75 mls/hr IV . [id number] [facility] Rx#:[id number] Oral 200 Other: Voiding Method Toilet Toilet Incontinent Incontinent # Voids 3 3 # Bowel Movements 1 - Exam GENERAL: Somnolent, and thin. Ambulating back from bathroom to bed with walker. Alert and oriented 3. No acute distress HEAD: Skull missing to the right frontotemporal lobe. EYES: extraocular movements intact, sclera anicteric, conjunctiva are normal. ENT:nares patent, oropharynx clear without exudates. Moist mucous membranes. NECK: Normal range of motion, supple without lymphadenopathy or JVD, no thyromegaly LUNGS: Unlabored, Breath sounds bilaterally coarse. No wheezes rales or rhonchi. HEART: Regular rate and rhythm without murmurs, rubs or gallops.S1,S2 Normal ABDOMEN: Soft,normoactive bowel sounds. No guarding, no rebound. No masses appreciated. Mild Suprapubic tenderness to palpation. EXTREMITIES: Normal range of motion, no pitting or edema. No clubbing or cyanosis. NEUROLOGICAL: Cranial nerves II through XII grossly intact. Normal speech, ambulates with walker slowly, strength is 5 out of 5 upper and lower extremities and equal. PSYCH: Normal mood, normal affect. SKIN: Warm, Dry, normal turgor, no rashes or lesions noted. - Labs CBC & Chem 7: 09/11/18 08:45 09/11/18 08:45 Labs: Abnormal Lab Results - Last 24 Hours (Table) 09/11/18 09/11/18 09/11/18 Range/Units 08:45 17:27 20:59 BUN 19 H (7-17) mg/dL Glucose 136 H (74-99) mg/dL POC Glucose (mg/dL) 143 H 127 H (75-99) mg/dL Microbiology - Last 24 Hours (Table) 09/09/18 11:22 Blood Culture - Preliminary Blood No Growth after 48 hours Assessment and Plan Assessment: (1) Recurrent UTI Current Visit: Yes Status: Acute Code(s): N39.0 - URINARY TRACT INFECTION, SITE NOT SPECIFIED SNOMED Code(s): 350713628 (2) Debility Current Visit: Yes Status: Acute Code(s): R53.81 - OTHER MALAISE SNOMED Code(s): 96618735 (3) Personal history of chemotherapy Current Visit: Yes Status: Acute Code(s): Z92.21 - PERSONAL HISTORY OF ANTINEOPLASTIC CHEMOTHERAPY SNOMED Code(s): 349299491365223 (4) History of radiation therapy Current Visit: Yes Status: Acute Code(s): Z92.3 - PERSONAL HISTORY OF IRRADIATION SNOMED Code(s): 893015901 (5) Back pain. Lumbar spine suggestive of drop metastasis. Further workup pending. Current Visit: Yes Status: Acute Code(s): M54.9 - DORSALGIA, UNSPECIFIED SNOMED Code(s): 381917561 (6) Failure of outpatient treatment Current Visit: Yes Status: Acute Code(s): Z78.9 - OTHER SPECIFIED HEALTH STATUS SNOMED Code(s): 016899468 (7) History of brain cancer Current Visit: Yes Status: Acute Code(s): Z85.841 - PERSONAL HISTORY OF MALIGNANT NEOPLASM OF BRAIN SNOMED Code(s): 625788092 (8) Weakness Current Visit: Yes Status: Acute Code(s): R53.1 - WEAKNESS SNOMED Code(s): 59395133 Plan: Continue on current medication regime ,monitoring and symptomatic treatment. Radiation oncology consulted. Neurology consult in place with recommendations pending.Continue on IV antibiotics. Attempted to DC IV push Dilaudid for breakthrough pain, patient unable to tolerate pain without it-resu med Follow closely with oncology. Brain MRI pending with anaphylaxis premed. and sedation. Prognosis guarded given multiple complex medical issues. The impression and plan of care has been dictated as directed. : I performed a history and examination of this patient, discussed the same with the dictator. I agree with the dictator's note ,documented as a scribe. Any additional findings or plans will be noted.
[2018-09-12 17:13] LABS: Glucose,Whole Blood 124 mg/dL (75-99)
[2018-09-12 19:58] LABS: Glucose,Whole Blood 137 mg/dL (75-99)
[2018-09-12] MEDS: predniSONE 50 MG TAB PO SCH (23:20)
[2018-09-13] MEDS: HYDROcodone/APAP 5-325MG 1 EACH TAB PO PRN ×5 (01:13→23:25)
[2018-09-13] MEDS: SODIUM CHLORIDE 0.9% 1,000 ML IV SCH ×2 (02:14→13:46)
[2018-09-13] MEDS: predniSONE 50 MG TAB PO SCH ×2 (06:18→13:36)
[2018-09-13] MEDS: HYDROmorphone 0.5 MG/0.5 ML SYRINGE IVP PRN ×3 (06:21→20:09)
[2018-09-13 07:10] LABS: Glucose,Whole Blood 114 mg/dL (75-99)
[2018-09-13 08:49] LABS: Basophils % (A) 0 %; Eosinophils % (A) 0 %; HCT 34.1 % (34.0-46.0); Lymphocytes # (A) 0.5 k/uL (1.0-4.8); Lymphocytes % (A) 12 %; MCH 31.6 pg (25.0-35.0); MCHC 32.4 g/dL (31.0-37.0); MCV 97.7 fL (80.0-100.0); Mean Platelet Volume 7.6; Monocytes # (A) 0.2 k/uL (0-1.0); Monocytes % (A) 6 %; Neutrophils # (A) 3.4 k/uL (1.3-7.7); Neutrophils % (A) 80 %; Platelet Count 299 k/uL (150-450); RBC 3.49 m/uL (3.80-5.40); WBC 4.3 k/uL (3.8-10.6)
[2018-09-13 09:08] LABS: African American GFR (CKD) >90 (>60 ml/min/1.73 sqM); Anion Gap 9 mmol/L; Blood Urea Nitrogen 19 mg/dL (7-17); Carbon Dioxide 26 mmol/L (22-30); Chloride 106 mmol/L (98-107); Glucose 108 mg/dL (74-99); Potassium 4.5 mmol/L (3.5-5.1); Sodium 141 mmol/L (137-145)
[2018-09-13] MEDS: ATORVASTATIN 20 MG TAB PO SCH (10:18)
[2018-09-13] MEDS: levETIRAcetam 500 MG TAB PO SCH ×2 (10:18→20:09)
[2018-09-13] MEDS: APIXABAN 2.5 MG TABLET PO SCH ×2 (10:18→20:09)
[2018-09-13] MEDS: DOCUSATE 100 MG CAP PO SCH ×2 (10:18→20:09)
[2018-09-13] MEDS: INSULIN ASPART (NovoLOG) 100 UNIT/ML VIAL SQ SCH ×4 (10:19→22:54)
[2018-09-13] MEDS: predniSONE 20 MG TAB PO SCH (10:24)
[2018-09-13 11:31] LABS: Glucose,Whole Blood 139 mg/dL (75-99)
--- NOTE | 2018-09-13 12:09 | P.PN ---
Subjective Progress Note Date: 09/13/18 Principal diagnosis: Glioblastoma on Main Temod[place], progressed, UTI CT Chest did not show evidence concerning for a secondary primary. Awaiting current MRI Brain, and will likely need LP Spoke to on phone and reviewed MRI likely new brain lesion with mass effect and midline shift, symptomatic, increased unilateral weakness, favoring right side and vision loss Objective - Vital Signs Vital signs: Vital Signs Temp 97.6 F 09/13/18 05:00 Pulse 112 H 09/13/18 05:00 Resp 16 09/13/18 05:00 BP 145/89 09/13/18 05:00 Pulse Ox 99 09/13/18 05:00 Intake & Output 09/12/18 09/13/18 09/13/18 18:59 06:59 18:59 Intake Total 1800 100 Output Total 2200 1975 Balance -400 -1875 Intake: Oral 1800 100 Output: Urine 2200 1275 Uretheral (Eng) 875 Post Void Residual 700 Other: Voiding Method Toilet Incontinent Incontinent Indwelling Catheter # Voids 3 1 - Labs CBC & Chem 7: 09/13/18 08:12 09/13/18 08:12 Labs: Abnormal Lab Results - Last 24 Hours (Table) 09/12/18 09/12/18 09/13/18 Range/Units 17:12 19:56 07:07 RBC (3.80-5.40) m/uL Hgb (11.4-16.0) gm/dL Lymphocytes # (1.0-4.8) k/uL BUN (7-17) mg/dL Glucose (74-99) mg/dL POC Glucose (mg/dL) 124 H 137 H 114 H (75-99) mg/dL 09/13/18 09/13/18 09/13/18 Range/Units 08:12 08:12 11:30 RBC 3.49 L (3.80-5.40) m/uL Hgb 11.0 L (11.4-16.0) gm/dL Lymphocytes # 0.5 L (1.0-4.8) k/uL BUN 19 H (7-17) mg/dL Glucose 108 H (74-99) mg/dL POC Glucose (mg/dL) 139 H (75-99) mg/dL Microbiology - Last 24 Hours (Table) 09/09/18 11:22 Blood Culture - Preliminary Blood No Growth after 72 hours Assessment and Plan (1) Back pain Current Visit: Yes Status: Acute Code(s): M54.9 - DORSALGIA, UNSPECIFIED SNOMED Code(s): 828550308 (2) Debility Current Visit: Yes Status: Acute Code(s): R53.81 - OTHER MALAISE SNOMED Code(s): 09842415 (3) History of brain cancer Current Visit: Yes Status: Acute Code(s): Z85.841 - PERSONAL HISTORY OF MALIGNANT NEOPLASM OF BRAIN SNOMED Code(s): 854714112 (4) Recurrent UTI Current Visit: Yes Status: Acute Code(s): N39.0 - URINARY TRACT INFECTION, SITE NOT SPECIFIED SNOMED Code(s): 149485704 (5) Weakness Current Visit: Yes Status: Acute Code(s): R53.1 - WEAKNESS SNOMED Code(s): 07351346 Plan: Assessment and Recommendations: Glioblastoma: - Follows with Dr. Stiles, Dr. Hawk and Pj out of [facility] - On Maintenance Temodar, Cycle 4 - Status Post 4 of 5 days and on hold for current UTI - Concern for progression, with the rarity of this picture, Abdomen and Pelvis was completed on 09/07 without evidence of new primary, will order CT Scan Chest to confirm no secondary primary cancer, will also restage MRI Brain Recurrent UTI: - Although Temodar may increase suspecibility to infection, it does not have a large impact on WBC or Immunoglobulins therefore with recurrent infections UTI, physiological or other etiological causes must be considered - Await Urology input Perisitent and worsening Back Pa9in: - Following with Dr. Mary - MRI spine is ordered and awaiting completion, could not complete secondary to difficulty saying still. Plan: - SPoke to and RN regarding results of MRI, new increased lesions right cerebellar, failure on Temodar. PLan for LP tomorrow, consult placed. -Discussed findings with patient and patient, all questions answered.
[2018-09-13] MEDS ORDERED: diphenhydrAMINE 50 MG/ML 1 ML VIAL IVP PRN (13:00)
--- NOTE | 2018-09-13 14:03 | P.PN ---
Subjective Progress Note Date: 09/13/18 Asya is a 63-year-old white female well-known to me. She has a history of glioblastoma multiforme he. She currently is undergoing chemotherapy with hematology/oncology. She was recently tapered off steroids for appetite and pain control. Her reports a several day history of worsening urinary f requency prompting an ER visit on September 07. He received IV antibiotics were sent home. There was evidence of dehydration that visit too. She returns to the emergency room 09/09/2018 with increasing weakness and some confusion and fatigue. The emergency urinalysis showed occasional yeast, many bacteria, 22 WBCs per high-powered field. Positive large leukocyte esterase. Cultures reveal positive Klebsiella. She was placed on Rocephin. She is been restarted on diet and takes medications of Keppra. Her DVT treatment medication of Elequis. Due to ongoing thoracic back pain, she is on [place] and Dilaudid was ordered for breakthrough pain. Currently she is somewhat improved. Her and daughter her bedside. She continues to have some urinary urgency. She denies any chest pains, pressures, or shortness of breath this time. He denies any nausea or vomiting. report much better appetite today. 09/11/2018 Weak, nauseated.Complains of worsening back pain. Receiving Dilaudid IV push for breakthrough pain . Lumbar spine MRI pending.chest x-ray suggestive of COPD with diffuse osteopenia noted, degenerative changes spine, arterial sclerotic change aorta. Denies any chest pain, palpitations or shortness of breath. Denies any headache. Maintained on IV Rocephin .Preliminary Blood cultures and urine Culture negative. Afebrile. Neurology consulted with recommendations pending. VSS, maintaining O2 sats in the mid 90s on room air. 09/12/2018 lumbar spine MRI reporting multiple enhancing nodules within the cauda equina and within the spinal canal posterior to L3 and L4 levels, additional posterior to the L1 and T12 levels, additional enhancing lesion in the L5-S1 spinal canal, small lesion possibly an anterior T11-T12 spinal canal space, Disc desiccation present throughout lumbar spine, foramen patent, no large disc herniations; compatible with drop metastasis. Discussed findings with both patient and spouse at the bedside with further recommendations/options pending from oncology. Mild reaction of rash after MRI with contrast yesterday with no airway involvement. Brain MRI rescheduled for tomorrow with anaphylaxis premedication. Radiation oncology consulted. Neurology consult in place with recommendations pending. Final urine culture reporting no growth. 09/13/2018 yesterday Dilaudid added back to pain med regime for breakthrough head and spine/lumbar pain; now presenting with recurrent lethargy. Chest CT performed yesterday afternoon reporting no metastatic disease identified in the chest, atelectasis with bandlike nodular subpleural atelectasis posterior right base, COPD with mild emphysema. Brain MRI scheduled for today. Labs pending. Afebrile. Urinary retention, Eng placed last night. Evaluated by neurology with recommendations noted. Objective - Vital Signs Vital signs: Vital Signs Temp 97.6 F 09/13/18 05:00 Pulse 112 H 09/13/18 05:00 Resp 16 09/13/18 05:00 BP 145/89 09/13/18 05:00 Pulse Ox 99 09/13/18 05:00 Intake & Output 09/12/18 09/13/18 09/13/18 18:59 06:59 18:59 Intake Total 1800 100 Output Total 2200 1975 Balance -400 -1875 Intake: Oral 1800 100 Output: Urine 2200 1275 Uretheral (Eng) 875 Post Void Residual 700 Other: Voiding Method Toilet Incontinent Incontinent Indwelling Catheter # Voids 3 1 - Exam GENERAL: Somnolent, and thin. Sleepy, lethargic, Alert and oriented 3. No acute distress HEAD: Skull missing to the right frontotemporal lobe. EYES: extraocular movements intact, sclera anicteric, conjunctiva are normal. ENT:nares patent, oropharynx clear without exudates. NECK: Normal range of motion, supple without lymphadenopathy or JVD, no thyromegaly LUNGS: Unlabored, Breath sounds bilaterally coarse. No wheezes rales or rhonchi. HEART: Regular rate and rhythm without murmurs, rubs or gallops.S1,S2 Normal ABDOMEN: Soft, minimally distended, normoactive bowel sounds. No guarding, no rebound. No masses appreciated. Minimal Suprapubic tenderness to palpation. EXTREMITIES: Normal range of motion, no pitting or edema. No clubbing or cyanosis. NEUROLOGICAL: Cranial nerves II through XII grossly intact. Denies all 4 extremities, generalized weakness. No focal deficits PSYCH: Normal mood, normal affect. SKIN: Warm, Dry, normal turgor, no rashes or lesions noted. - Labs CBC & Chem 7: 09/13/18 08:12 09/13/18 08:12 Labs: Abnormal Lab Results - Last 24 Hours (Table) 09/12/18 09/12/18 09/12/18 Range/Units 11:32 17:12 19:56 POC Glucose (mg/dL) 111 H 124 H 137 H (75-99) mg/dL 09/13/18 Range/Units 07:07 POC Glucose (mg/dL) 114 H (75-99) mg/dL Microbiology - Last 24 Hours (Table) 09/09/18 11:22 Blood Culture - Preliminary Blood No Growth after 72 hours Assessment and Plan Assessment: (1) Recurrent UTI with urinary retention Current Visit: Yes Status: Acute Code(s): N39.0 - URINARY TRACT INFECTION, SITE NOT SPECIFIED SNOMED Code(s): 426474763 (2) Debility Current Visit: Yes Status: Acute Code(s): R53.81 - OTHER MALAISE SNOMED Code(s): 71327617 (3) Personal history of chemotherapy Current Visit: Yes Status: Acute Code(s): Z92.21 - PERSONAL HISTORY OF ANTINEOPLASTIC CHEMOTHERAPY SNOMED Code(s): 067279581775458 (4) History of radiation therapy Current Visit: Yes Status: Acute Code(s): Z92.3 - PERSONAL HISTORY OF IRRADIATION SNOMED Code(s): 574988810 (5) Back pain. Lumbar spine suggestive of drop metastasis. Further workup pending. Current Visit: Yes Status: Acute Code(s): M54.9 - DORSALGIA, UNSPECIFIED SNOMED Code(s): 984171455 (6) Failure of outpatient treatment Current Visit: Yes Status: Acute Code(s): Z78.9 - OTHER SPECIFIED HEALTH STATUS SNOMED Code(s): 977669897 (7) History of brain cancer, glioblastoma multiforme, status post surgical resection Current Visit: Yes Status: Acute Code(s): Z85.841 - PERSONAL HISTORY OF MALIGNANT NEOPLASM OF BRAIN SNOMED Code(s): 083820774 (8) Weakness, secondary to drop metastasis. Current Visit: Yes Status: Acute Code(s): R53.1 - WEAKNESS SNOMED Code(s): 52448196 (9) metabolic encephalopathy, multifactorial, secondary to possibly recurrent UTI, metastases,Ca. Plan: Continue on current medication regime ,monitoring and symptomatic treatment.Brain MRI scheduled for today with anaphylaxis premed. and sedation. Continue on IV antibiotics. Attempted to DC IV push Dilaudid for breakthrough pain, patient unable to tolerate pain without it-resumed yesterday. Potential Lumbar puncture being discussed per oncology. Follow closely with multiple consults. Prognosis guarded given multiple complex medical issues. The impression and plan of care has been dictated as directed. : I performed a history and examination of this patient, discussed the same with the dictator. I agree with the dictator's note ,documented as a scribe. Any additional findings or plans will be noted.
--- NOTE | 2018-09-13 15:24 | MR ---
EXAMINATION TYPE: MR brain wo/w con DATE OF EXAM: 09/13/2018 COMPARISON: Outside MRI brain December 03, 2017 HISTORY: Restaging glioblastoma TECHNIQUE: Multiplanar, multisequence images of the brain and brainstem is performed with IV contrast only, util izing 8 mL intravenous Gadavist . FINDINGS: There is right lateral cerebellar lesion with irregular rim enhancing cystic component ante riorly measuring 2.8 x 1.7 cm axial image 20 series 703 with additional nodular solid enhancing compo nent posterior to the measuring approximately 1.9 x 1.0 cm axial image 22. Surrounding vasogenic jonathan a extends past the midline with local mass effect. Lesion is new from prior study. Mass effect and mi dline shift the level fourth ventricle is more prominent from prior. Postsurgical change right temporal region with encephalomalacia is present, there is nonspecific incr easing curvilinear dural enhancement most prominent along the anterior and lateral aspect redemonstra blossom. Findings presumed postsurgical. There is higher right parietal craniectomy change noted. There i s interval improvement in mass effect and edema from outside MRI at site of prior surgery. IMPRESSION: Interval surgery of dominant lesion right temporal lobe with new right cerebellar lesion causing significant mass effect and midline shift felt to reflect residual or recurrent tumor.
--- NOTE | 2018-09-13 15:28 | MR ---
EXAMINATION TYPE: MR thoracic spine wo/w con DATE OF EXAM: 09/13/2018 COMPARISON: Chest CT from yesterday. HISTORY: Back pain, hx brain ca TECHNIQUE: Multiplanar, multisequence imaging of thoracic spine is performed without and with IV cont rast, patient injected with 3 cc of gadolinium. FINDINGS: Examination was suboptimal due to patient claustrophobia causing repeated motion. Spinal c ord shows normal course, caliber, and signal as it courses the thoracic spine. Vertebral body height s are satisfactory. Posterior disc herniation at T11-T12 level effaces the anterior thecal sac sagitt al image 9. Additional disc herniations are present T10-T11 level left paracentral region sagittal im age 6 and smaller disc herniation centrally.-T10 level sagittal image 7. Some heterogeneous endplate changes are seen. No suspicious enhancement is noted. Review of the axial images shows no additional significant spinal canal stenosis or neural foraminal narrowing at any thoracic level. Largest herniation T11-T12 level effaces anterior thecal sac up to anterior surface of spinal cord on axial image 4 series 601. IMPRESSION: No suspicious enhancement to suggest metastatic disease to thoracic spinal cord or canal.
--- NOTE | 2018-09-13 16:26 | PN ---
PROGRESS NOTE DATE OF SERVICE: 09/13/2018 REASON FOR FOLLOWUP: Klebsiella urinary tract infection. INTERVAL HISTORY: The patient is currently afebrile. The patient was slightly this morning. No nausea. No vomiting or diarrhea or change clinically that has been reported by the nursing staff. Her is present at bedside. PHYSICAL EXAMINATION: Blood pressure 145/89 with a pulse of 109, temperature 97.6. She is 99% on room air. General description is a middle-aged female lying in bed in no distress. RESPIRATORY SYSTEM: Unlabored breathing with decreased breath sounds at the base. HEART: S1, S2. Regular rate and rhythm. ABDOMEN: Soft. No tenderness. LABS: Hemoglobin is 11, white count 4.3, BUN of 19, creatinine 0.68. has been negative. DIAGNOSTIC IMPRESSION AND PLAN: Patient admitted to hospital with generalized weakness which is likely multifactorial in this patient who did have a recurrent urinary tract infection. Last urine culture was klebsiella, for which the patient is currently covered with Rocephin; to continue. She was noticed to have abnormality on lumbar spine. An MRI of the brain has been ordered in view of her history of glioblastoma. The patient will continue with IV Rocephin while inpatient and monitor clinical course closely. at the bedside. Questions were answered. MMODL / IJN: [id number] /
[2018-09-13 17:32] LABS: Glucose,Whole Blood 131 mg/dL (75-99)
[2018-09-13] MEDS: DEXAMETHASONE SOD PHOSPHATE 4 MG/ML 1 ML VIAL IV SCH (20:10)
[2018-09-13 20:29] LABS: Glucose,Whole Blood 133 mg/dL (75-99)
[2018-09-14] MEDS: DEXAMETHASONE SOD PHOSPHATE 4 MG/ML 1 ML VIAL IV SCH ×5 (00:18→23:16)
[2018-09-14] MEDS: HYDROmorphone 0.5 MG/0.5 ML SYRINGE IVP PRN ×6 (02:41→21:34)
[2018-09-14] MEDS: SODIUM CHLORIDE 0.9% 1,000 ML IV SCH ×2 (05:29→14:15)
[2018-09-14 07:11] LABS: Glucose,Whole Blood 121 mg/dL (75-99)
--- NOTE | 2018-09-14 09:57 | PN ---
PROGRESS NOTE DATE OF SERVICE: 09/14/2018 I had the pleasure of re-evaluating the patient, who is currently lying in bed, on and resting. She denies headache, states that she just received Dilaudid shortly before I entered the room. No seizure activity has been witnessed. The patient was apparently having difficulty swallowing her pills this morning. states that she will spontaneously move all extremities, although will not always squeeze with her left hand upon command. The patient had additional diagnostic testing including MRI of the brain which demonstrated a new right cerebellar enhancing mass with significant associated mass effect, compression against the fourth ventricle but no hydrocephalus at this time. The patient has been started on Decadron. CURRENT MEDICATIONS: Eliquis, Lipitor, ceftriaxone, Decadron 4 mg q.6 hours, Colace, [place], Dilaudid, NovoLog. PHYSICAL EXAM: On her way to the patient's room, she was lying in bed, head turned to the right, similar to when I previously evaluated the patient. She was easily arousable, would make eye contact with the examiner and follow many commands. VITAL SIGNS: Blood pressure is 149/90 with pulse of 103, respiratory rate 14, temperature 98.5. HEAD AND NECK: Neck is supple without meningeal signs. There is evidence of previous right craniotomy and bone flap is off. HIGHER CORTICAL FUNCTION: MENTAL STATUS: Patient was alert and oriented to self. She knew she was in a hospital but did not report what city she was in. She stated the year was "2011." She was able to name and repeat. CRANIAL NERVES II THROUGH XII: There is left visual field deficit. Pupils are equal and reactive to light, in the setting of the visual field deficit, the patient will not consistently track to the left. She will move her eyes to the right and up/down gaze is intact. There is flattening of the left nasolabial fold. Tongue protruded midline. MOTOR EXAMINATION: The patient would move all extremities spontaneously. When the examiner lifted the upper extremities off the bed, she let these both drop, slightly quicker on the left. There was reduced bulk in hand intrinsic muscles with normal tone and no involuntary movements are noted. No seizure activity was witnessed. For muscle strength testing is limited as patient provides brief and unsustained effort, but strength appears at least 4+/5 involving the right upper and bilateral lower extremities and at least 4-/5 involving the left upper extremity. Plantar responses flexor bilaterally. Bustos's is present on the left. COORDINATION: There is dysmetria with right [id number] movements. DIAGNOSTIC TESTING: Patient had MRI of the brain completed on 09/13/2018, which demonstrated interval surgery of the dominant right temporal lobe lesion with a new right cerebellar lesion causing significant mass effect and midline shift, felt to reflect residual/recurrent tumor. MRI of the thoracic spine revealed no suspicious enhancement to suggest metastatic disease. LAB WORK: From 09/13, included a white blood count of 4.3, hemoglobin 11.0, platelet count 299. Sodium 141, potassium 4.5, BUN 19 with a creatinine 0.68. IMPRESSION: 1. Probable recurrent glioblastoma multiforme despite Temodar, initially diagnosed in November of 2017, status post craniotomy/chemotherapy/radiation. 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 2. Encephalopathy, likely secondary to recurrent urinary tract infection, prerenal azotemia, burden of disease and medication effect. The patient has had no recent seizures. 3. Prolonged hospitalization in February of 2018 secondary to infection in the right craniotomy surgical bed at which time the patient developed seizures. 4. Urinary retention. 5. History of left lower extremity deep venous thrombosis, maintained on Eliquis. RECOMMENDATION: 1. The patient's case was discussed with her and nursing staff. I will also discuss with Oncology when available. 2. The patient has been placed on Decadron and will continue Keppra at the current dose and change it formulation to IV from oral. 3. If family wishes to continue aggressive medical support, the patient will likely need definitive treatment for the right cerebellar lesion as there is significant mass effect and risk of impending hydrocephalus. 4. Will follow with you. Thank you for allowing me to participate in the care of your patient. MMODL / IJN: [id number] /
[2018-09-14] MEDS: levETIRAcetam IV 1,000 MG in SALINE 1 100ML.BAG IVPB SCH ×2 (10:25→20:33)
[2018-09-14] MEDS: DOCUSATE 100 MG CAP PO SCH (10:26)
[2018-09-14] MEDS: ATORVASTATIN 20 MG TAB PO SCH (10:26)
[2018-09-14] MEDS: INSULIN ASPART (NovoLOG) 100 UNIT/ML VIAL SQ SCH ×4 (10:26→21:21)
[2018-09-14] MEDS ORDERED: BISACODYL 10 MG SUPP RECTAL PRN (11:21)
[2018-09-14] MEDS ORDERED: LORazepam 2 MG/ML INJ IV PRN (11:24)
--- NOTE | 2018-09-14 12:13 | P.PN ---
Subjective Progress Note Date: 09/14/18 Asya is a 63-year-old white female well-known to me. She has a history of glioblastoma multiforme he. She currently is undergoing chemotherapy with hematology/oncology. She was recently tapered off steroids for appetite and pain control. Her reports a several day history of worsening urinary f requency prompting an ER visit on September 07. He received IV antibiotics were sent home. There was evidence of dehydration that visit too. She returns to the emergency room 09/09/2018 with increasing weakness and some confusion and fatigue. The emergency urinalysis showed occasional yeast, many bacteria, 22 WBCs per high-powered field. Positive large leukocyte esterase. Cultures reveal positive Klebsiella. She was placed on Rocephin. She is been restarted on diet and takes medications of Keppra. Her DVT treatment medication of Elequis. Due to ongoing thoracic back pain, she is on [place] and Dilaudid was ordered for breakthrough pain. Currently she is somewhat improved. Her and daughter her bedside. She continues to have some urinary urgency. She denies any chest pains, pressures, or shortness of breath this time. He denies any nausea or vomiting. report much better appetite today. 09/11/2018 Weak, nauseated.Complains of worsening back pain. Receiving Dilaudid IV push for breakthrough pain . Lumbar spine MRI pending.chest x-ray suggestive of COPD with diffuse osteopenia noted, degenerative changes spine, arterial sclerotic change aorta. Denies any chest pain, palpitations or shortness of breath. Denies any headache. Maintained on IV Rocephin .Preliminary Blood cultures and urine Culture negative. Afebrile. Neurology consulted with recommendations pending. VSS, maintaining O2 sats in the mid 90s on room air. 09/12/2018 lumbar spine MRI reporting multiple enhancing nodules within the cauda equina and within the spinal canal posterior to L3 and L4 levels, additional posterior to the L1 and T12 levels, additional enhancing lesion in the L5-S1 spinal canal, small lesion possibly an anterior T11-T12 spinal canal space, Disc desiccation present throughout lumbar spine, foramen patent, no large disc herniations; compatible with drop metastasis. Discussed findings with both patient and spouse at the bedside with further recommendations/options pending from oncology. Mild reaction of rash after MRI with contrast yesterday with no airway involvement. Brain MRI rescheduled for tomorrow with anaphylaxis premedication. Radiation oncology consulted. Neurology consult in place with recommendations pending. Final urine culture reporting no growth. 09/13/2018 yesterday Dilaudid added back to pain med regime for breakthrough head and spine/lumbar pain; now presenting with recurrent lethargy. Chest CT performed yesterday afternoon reporting no metastatic disease identified in the chest, atelectasis with bandlike nodular subpleural atelectasis posterior right base, COPD with mild emphysema. Brain MRI scheduled for today. Labs pending. Afebrile. Urinary retention, Eng placed last night. Evaluated by neurology with recommendations noted. 09/14/2018 Brain MRI reporting new right cerebellar lesion causing significant mass effect and midline shift to reflect residual or recurrent tumor. Dr. Sr, oncology,spoke with patient and spouse regarding options. Family meeting with Oncology [employer] pending. More family enroute. Patient unable to swallow pills, pocketing. Medications further adjusted with Dilaudid frequency increased. Objective - Vital Signs Vital signs: Vital Signs Temp 98.5 F 09/14/18 04:50 Pulse 103 H 09/14/18 04:50 Resp 14 09/14/18 04:50 BP 149/90 09/14/18 04:50 Pulse Ox 97 09/14/18 04:50 Intake & Output 09/13/18 09/14/18 09/14/18 18:59 06:59 18:59 Intake Total 800 550 Output Total 600 900 Balance 200 -350 Intake: Intake, IV Titration 600 350 Amount Sodium Chloride 0.9% 1, 600 350 000 ml @ 75 mls/hr IV . [id number] [facility] Rx#:[id number] Oral 200 200 Output: Urine 600 900 Uretheral (Eng) 200 Other: Voiding Method Incontinent Indwelling Catheter Indwelling Catheter # Voids 1 # Bowel Movements 0 - Exam GENERAL: Somnolent, and thin, weak. Alert and oriented 3. No acute distress HEAD: Skull missing to the right frontotemporal lobe. EYES: extraocular movements intact, sclera anicteric, conjunctiva are normal. ENT:nares patent, oropharynx clear without exudates. NECK: Normal range of motion, supple without lymphadenopathy or JVD, no thyromegaly LUNGS: Unlabored, Breath sounds bilaterally coarse. No wheezes rales or rhonchi. HEART: Regular rate and rhythm without murmurs, rubs or gallops.S1,S2 Normal ABDOMEN: Soft, minimally distended, normoactive bowel sounds. No guarding, no rebound. No masses appreciated. EXTREMITIES: no pitting or edema. No clubbing or cyanosis. Increasing weakness, favoring right side NEUROLOGICAL: Cranial nerves II through XII grossly intact. Increasing generalized weakness, favoring right side. PSYCH: Normal mood, normal affect. SKIN: Warm, Dry, normal turgor, no rashes or lesions noted. - Labs CBC & Chem 7: 09/13/18 08:12 09/13/18 08:12 Labs: Abnormal Lab Results - Last 24 Hours (Table) 09/13/18 09/13/18 09/13/18 Range/Units 08:12 11:30 17:15 BUN 19 H (7-17) mg/dL Glucose 108 H (74-99) mg/dL POC Glucose (mg/dL) 139 H 131 H (75-99) mg/dL 09/13/18 09/14/18 Range/Units 20:28 07:10 BUN (7-17) mg/dL Glucose (74-99) mg/dL POC Glucose (mg/dL) 133 H 121 H (75-99) mg/dL Microbiology - Last 24 Hours (Table) 09/09/18 11:22 Blood Culture - Preliminary Blood No Growth after 96 hours Assessment and Plan Assessment: (1) Recurrent UTI with urinary retention Current Visit: Yes Status: Acute Code(s): N39.0 - URINARY TRACT INFECTION, SITE NOT SPECIFIED SNOMED Code(s): 271904429 (2) Debility, multifactorial Current Visit: Yes Status: Acute Code(s): R53.81 - OTHER MALAISE SNOMED Code(s): 54112531 (3) Personal history of chemotherapy Current Visit: Yes Status: Acute Code(s): Z92.21 - PERSONAL HISTORY OF ANTINEOPLASTIC CHEMOTHERAPY SNOMED Code(s): 591042744398506 (4) History of radiation therapy Current Visit: Yes Status: Acute Code(s): Z92.3 - PERSONAL HISTORY OF IRRADIATION SNOMED Code(s): 282347529 (5) Back pain. Lumbar spine suggestive of drop metastasis. Current Visit: Yes Status: Acute Code(s): M54.9 - DORSALGIA, UNSPECIFIED SNOMED Code(s): 793288590 (6) Failure of outpatient treatment Current Visit: Yes Status: Acute Code(s): Z78.9 - OTHER SPECIFIED HEALTH STATUS SNOMED Code(s): 206931848 (7) History of brain cancer, glioblastoma multiforme, status post surgical resection. Recurrent right cerebellar tumor suggested per MRI. Current Visit: Yes Status: Acute Code(s): Z85.841 - PERSONAL HISTORY OF MALIGNANT NEOPLASM OF BRAIN SNOMED Code(s): 904105932 (8) Weakness, secondary to drop metastasis. Current Visit: Yes Status: Acute Code(s): R53.1 - WEAKNESS SNOMED Code(s): 00741176 (9) metabolic encephalopathy, multifactorial, secondary to possibly recurrent UTI, metastases,Ca. (10) no code, no CPR, no intubation Plan: Continue on current medication regime ,monitoring and symptomatic treatment. Patient requesting hospice consult . Consult social media specialist, has minimal help at home, considering hospice house. Pain management. Prognosis guarded given multiple complex medical issues. The impression and plan of care has been dictated as directed. : I performed a history and examination of this patient, discussed the same with the dictator. I agree with the dictator's note ,documented as a scribe. Any additional findings or plans will be noted.
[2018-09-14 12:47] LABS: Glucose,Whole Blood 117 mg/dL (75-99)
--- NOTE | 2018-09-14 16:16 | PN ---
PROGRESS NOTE DATE OF SERVICE: 09/14/2018. REASON FOR FOLLOWUP: Klebsiella urinary tract infection. INTERVAL HISTORY: The patient is currently afebrile. The patient has been breathing comfortably. No chest pain or any cough. No nausea, vomiting, abdominal pain or any diarrhea. PHYSICAL EXAMINATION: Blood pressure 158/90 with a pulse of 93, temperature of 98.3. She is 98% on room air. General description is a middle-aged female lying in bed in no distress. RESPIRATORY SYSTEM: Unlabored breathing. Clear to auscultation anteriorly. HEART: S1, S2. Regular rate and rhythm. ABDOMEN: Soft. No tenderness. LABS: Hemoglobin is 11, white count 4.3, BUN of 19, creatinine 0.68. Blood and repeat urine cultures have been negative. DIAGNOSTIC IMPRESSION AND PLAN: Patient admitted to hospital with mental status changes and weakness which is likely multifactorial, possible a component of klebsiella urinary tract infection, now with evidence of lesion in her brain and concern about recurrent glioblastoma. The patient is currently being considered for a if she will be appropriate. Antibiotic can be safely discontinued. Family at the bedside, and their questions were answered. MMODL / IJN: [id number] /
[2018-09-14 17:09] LABS: Glucose,Whole Blood 102 mg/dL (75-99)
--- NOTE | 2018-09-14 19:04 | P.PN ---
Subjective Progress Note Date: 09/14/18 Principal diagnosis: Glioblastoma on Main Temodar, progressed, UTI MRI with obvious progression. spoke with Neurology and primary team. Long discussion with patient and family. Goals of care addressed. Goals palliative and comfort. Patient now a DNR, and planning hospice care. Objective - Vital Signs Vital signs: Vital Signs Temp 98.3 F 09/14/18 12:48 Pulse 93 09/14/18 12:48 Resp 16 09/14/18 12:48 BP 158/90 09/14/18 12:48 Pulse Ox 98 09/14/18 12:48 Intake & Output 09/13/18 09/14/18 09/14/18 18:59 06:59 18:59 Intake Total 800 550 600 Output Total 600 900 Balance 200 -350 600 Intake: Intake, IV Titration 600 350 600 Amount Sodium Chloride 0.9% 1, 600 350 600 000 ml @ 75 mls/hr IV . [id number] [facility] Rx#:[id number] Oral 200 200 Output: Urine 600 900 Uretheral (Eng) 200 Other: Voiding Method Incontinent Indwelling Catheter Indwelling Catheter Indwelling Catheter # Voids 1 # Bowel Movements 0 - Exam General: Alert intermittent Head:skull missing right head Neck: Supple Mouth: No Lesions, No Thrush Eyes: Non-sclerotic No Palpable cervical, supraclavicular, axillary adenopathy Heart: Regular Rate, Regular Rhythm Lungs: Clear to Ausculations, No Wheeze, No Rhonchi, Diminishe bilateral lower lobes, No increased respiratory effort noted Abdomen: Soft, Non-Distended, Non-Tended, BSx4 Psych: Calm and cooperative - Labs CBC & Chem 7: 09/13/18 08:12 09/13/18 08:12 Labs: Abnormal Lab Results - Last 24 Hours (Table) 09/13/18 09/14/18 09/14/18 Range/Units 20:28 07:10 12:46 POC Glucose (mg/dL) 133 H 121 H 117 H (75-99) mg/dL 09/14/18 Range/Units 17:08 POC Glucose (mg/dL) 102 H (75-99) mg/dL Microbiology - Last 24 Hours (Table) 09/09/18 11:22 Blood Culture - Preliminary Blood No Growth after 120 hours Assessment and Plan (1) Back pain Current Visit: Yes Status: Acute Code(s): M54.9 - DORSALGIA, UNSPECIFIED SNOMED Code(s): 474967478 (2) Debility Current Visit: Yes Status: Acute Code(s): R53.81 - OTHER MALAISE SNOMED Code(s): 75272583 (3) History of brain cancer Current Visit: Yes Status: Acute Code(s): Z85.841 - PERSONAL HISTORY OF MALIGNANT NEOPLASM OF BRAIN SNOMED Code(s): 070757745 (4) Recurrent UTI Current Visit: Yes Status: Acute Code(s): N39.0 - URINARY TRACT INFECTION, SITE NOT SPECIFIED SNOMED Code(s): 403635013 (5) Weakness Current Visit: Yes Status: Acute Code(s): R53.1 - WEAKNESS SNOMED Code(s): 89469396 Plan: Assessment and Recommendations: Glioblastoma: - Follows with Dr. Stiles, Dr. Hawk and Pj out of [facility] - On Maintenance Temodar, Cycle 4 - Status Post 4 of 5 days and on hold for current UTI - Concern for progression, with the rarity of this picture, Abdomen and Pelvis was completed on 09/07 without evidence of new primary, will order CT Scan Chest to confirm no secondary primary cancer, will also restage MRI Brain Recurrent UTI: - Although Temodar may increase suspecibility to infection, it does not have a large impact on WBC or Immunoglobulins therefore with recurrent infections UTI, physiological or other etiological causes must be considered - Await Urology input Perisitent and worsening Back Pa9in: - Following with Dr. Mary - MRI spine is ordered and awaiting completion, could not complete secondary to difficulty saying still. Plan: - SPoke to and RN regarding results of MRI, new increased lesions right cerebellar, failure on Temodar. PLan for LP tomorrow, consult placed. - Discussed findings with patient and patient, all questions answered. - Overall Prognosis Poor - Long discussion with patients family plan hospice, fentanyl
[2018-09-14] MEDS: APIXABAN 2.5 MG TABLET PO SCH (20:12)
[2018-09-14 20:42] LABS: Glucose,Whole Blood 122 mg/dL (75-99)
[2018-09-15] MEDS: HYDROmorphone 0.5 MG/0.5 ML SYRINGE IVP PRN ×7 (00:43→22:31)
[2018-09-15] MEDS: DEXAMETHASONE SOD PHOSPHATE 4 MG/ML 1 ML VIAL IV SCH ×3 (05:34→18:15)
[2018-09-15 06:59] LABS: Glucose,Whole Blood 105 mg/dL (75-99)
[2018-09-15] MEDS: SODIUM CHLORIDE 0.9% 1,000 ML IV SCH ×2 (07:15→15:15)
[2018-09-15] MEDS: INSULIN ASPART (NovoLOG) 100 UNIT/ML VIAL SQ SCH ×2 (07:16→15:18)
[2018-09-15] MEDS: levETIRAcetam IV 1,000 MG in SALINE 1 100ML.BAG IVPB SCH ×2 (09:19→22:31)
[2018-09-15 11:26] LABS: Glucose,Whole Blood 99 mg/dL (75-99)
--- NOTE | 2018-09-15 12:32 | P.PN ---
Subjective Progress Note Date: 09/15/18 Principal diagnosis: Glioblastoma on Main Temodar, progressed, UTI Pain better managed today. Objective - Vital Signs Vital signs: Vital Signs Temp 98.3 F 09/15/18 04:57 Pulse 98 09/15/18 04:57 Resp 18 09/15/18 04:57 BP 160/98 09/15/18 04:57 Pulse Ox 97 09/15/18 04:57 Intake & Output 09/14/18 09/15/18 09/15/18 18:59 06:59 18:59 Intake Total 600 925 Output Total 1250 1400 Balance -650 925 -1400 Intake: Intake, IV Titration 600 925 Amount Sodium Chloride 0.9% 1, 600 825 000 ml @ 75 mls/hr IV . [id number] [facility] Rx#:[id number] levETIRAcetam IV 1,000 mg 100 In Saline 1 100ml.bag @ 400 mls/hr IVPB Q12HR [facility] Rx#:[id number] Output: Urine 1250 1400 Uretheral (Eng) 700 1400 Other: Voiding Method Indwelling Catheter Indwelling Catheter - Exam General: Alert intermittent Head:skull missing right head Neck: Supple Mouth: No Lesions, No Thrush Eyes: Non-sclerotic No Palpable cervical, supraclavicular, axillary adenopathy Heart: Regular Rate, Regular Rhythm Lungs: Clear to Ausculations, No Wheeze, No Rhonchi, Diminishe bilateral lower lobes, No increased respiratory effort noted - Labs CBC & Chem 7: 09/13/18 08:12 09/13/18 08:12 Labs: Abnormal Lab Results - Last 24 Hours (Table) 09/14/18 09/14/18 09/14/18 Range/Units 12:46 17:08 20:40 POC Glucose (mg/dL) 117 H 102 H 122 H (75-99) mg/dL 09/15/18 Range/Units 06:57 POC Glucose (mg/dL) 105 H (75-99) mg/dL Microbiology - Last 24 Hours (Table) 09/09/18 11:22 Blood Culture - Preliminary Blood No Growth after 120 hours Assessment and Plan (1) Back pain Current Visit: Yes Status: Acute Code(s): M54.9 - DORSALGIA, UNSPECIFIED SNOMED Code(s): 283550218 (2) Debility Current Visit: Yes Status: Acute Code(s): R53.81 - OTHER MALAISE SNOMED Code(s): 13811030 (3) History of brain cancer Current Visit: Yes Status: Acute Code(s): Z85.841 - PERSONAL HISTORY OF MALIGNANT NEOPLASM OF BRAIN SNOMED Code(s): 432763332 (4) Recurrent UTI Current Visit: Yes Status: Acute Code(s): N39.0 - URINARY TRACT INFECTION, SITE NOT SPECIFIED SNOMED Code(s): 804099759 (5) Weakness Current Visit: Yes Status: Acute Code(s): R53.1 - WEAKNESS SNOMED Code(s): 65177720 Plan: Assessment and Recommendations: Glioblastoma: - Follows with Dr. Stiles, Dr. Hawk and Pj out of [facility] - On Maintenance Temodar, Cycle 4 - Status Post 4 of 5 days and on hold for current UTI - Concern for progression, with the rarity of this picture, Abdomen and Pelvis was completed on 09/07 without evidence of new primary, will order CT Scan Chest to confirm no secondary primary cancer, will also restage MRI Brain Recurrent UTI: - Although Temodar may increase suspecibility to infection, it does not have a large impact on WBC or Immunoglobulins therefore with recurrent infections UTI, physiological or other etiological causes must be considered - Await Urology input Perisitent and worsening Back Pa9in: - Following with Dr. Mary - MRI spine is ordered and awaiting completion, could not complete secondary to difficulty saying still. Overall progressive disease, increased pain and discomfort over the past 24 hours. - Changes have been made to increase comfort. - Fentanyl added, IV dilaudid needed at this time for comfort, family would like to know pain and medications are managed here with same as home prior to sending home. - Will Add Roxanol - Will add PO ativan - Will attempt to utilize PO meds prior to IV
[2018-09-15 13:01] VITALS: RESP 16
--- NOTE | 2018-09-15 14:40 | P.CONS ---
History of Present Illness - Reason for Consult Consult date: 09/12/18 Glioblastoma Requesting physician: Dino Sr - Chief Complaint I have back pain - History of Present Illness Asya is a 62-year-old female with a history of a right temporal lobe glioblastoma status post gross total resection status post resection x2, temodar/xrt and now maintenance temodar. She is completing her fourth cycle of temodar complicated with issues of recurrent urinary tract infections. She now presents with mental status changes and UTI. Antibiotics initiated and Urology has been consulted. She also complains of back pain in which she is following Ubaldo Mary. Asya did grow Klebsiella on urine culture 09/07/18. MRI of the brain pending. 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 Past Medical History Past Medical History: Cancer (Glioblastoma multiformie, with radiation and chemotherapy treatment.DIAGNOSED NOV 30 2017, PT HAD SURGERY 12/02/17 AND CHEMO & RADIATION TX FOR 6 WEEKS., ), Neurologic Disorder (History of Meningitis since neurosurgery, seizures as a sequelae of glioblastoma and neurosurgery, short- term memory loss), Vascular Disorder (History of DVT April 2018) Additional Past Medical History / Comment(s): BRAIN CANCER DIAGNOSED NOV 30 2017, PT HAD SURGERY 12/02/17 AND CHEMO & RADIATION TX FOR 6 WEEKS., INFECTION WITH MENINGITIS , HX OF POSSIBLE SEIZURES., SHORT TERM MEMORY., HX OF DVT LEFT THIGH (APR 2017)., MISSING SKULL CAP ON RIGHT - WEARS HELMET. History of Any Multi-Drug Resistant Organisms: MRSA Year Discovered:: unknown MDRO Source:: [facility] Past Surgical History: Breast Surgery (Breast lift) Additional Past Surgical History / Comment(s): BRAIN TUMOR REMOVAL 11/2017, SURGERY FOR BRAIN INFECTION (FEB-APR),. PEG TUBE and removal in july, HX OF TUMMY TUCK AND BREAST LIFT., CYST ON KNEE REMOVED. Past Anesthesia/Blood Transfusion Reactions: No Reported Reaction Additional Past Anesthesia/Blood Transfusion Reaction / Comm: CLAUSTROPHOBIC Past Psychological History: Anxiety Smoking Status: Former smoker Past Alcohol Use History: None Reported Additional Past Alcohol Use History / Comment(s): QUIT SMOKING SUMMER 2017., SMOKED 4 CIGARETTES/WEEK. Past Drug Use History: None Reported Additional Drug Use History / Comment(s): TAKING MARINOL FOR APPETITE CURRENTLY - Past Family History Father Family Medical History: Cancer Additional Family Medical History / Comment(s): BRAIN CANCER Sister(s) Family Medical History: Cancer Additional Family Medical History / Comment(s): LEUKEMIA Medications and Allergies Home Medications Medication Instructions Recorded Confirmed Type levETIRAcetam [Keppra] 1,000 mg PO BID 05/10/18 09/09/18 History Apixaban [Eliquis] 2.5 mg PO BID 06/01/18 09/09/18 History Atorvastatin [Lipitor] 20 mg PO DAILY 08/08/18 09/09/18 History Docusate [Colace] 100 mg PO BID 08/08/18 09/09/18 History Temozolomide [Temodar] 140 mg PO DIRECTED 08/08/18 09/09/18 History Temozolomide [Temodar] 180 mg PO DIRECTED 08/08/18 09/09/18 History HYDROcodone/APAP 5-325MG [[place] 1 tab PO Q6H PRN 09/07/18 09/09/18 History 5-325] Nitrofurantoin Monohyd/M-Cryst 100 mg PO Q12HR #14 cap 09/07/18 09/09/18 Rx [Macrobid] Allergies Allergy/AdvReac Type Severity Reaction Status Date / Time ampicillin Allergy Unknown Swelling Verified 09/09/18 11:22 gadobutrol [From Gadavist] Allergy Itching Unverified 09/11/18 17:00 Physical Exam Vitals: Vital Signs Temp Pulse Resp BP Pulse Ox 09/12/18 12:34 97.6 F 92 17 158/91 100 09/12/18 08:00 92 17 09/12/18 05:00 97.6 F 93 18 144/87 100 09/11/18 21:00 97.7 F 111 H 16 126/86 97 Intake and Output 09/12/18 09/12/18 09/12/18 06:59 14:59 22:59 Intake Total 1000 120 Balance 1000 120 Intake: Intake, IV Titration 1000 Amount Sodium Chloride 0.9% 1, 1000 000 ml @ 75 mls/hr IV . [id number] [facility] Rx#:[id number] Oral 120 Other: Voiding Method Toilet Toilet Incontinent Incontinent # Voids 3 # Bowel Movements 1 Results CBC & Chem 7: 09/11/18 08:45 09/11/18 08:45 Labs: Abnormal Lab Results - Last 24 Hours (Table) 09/11/18 09/11/18 09/12/18 Range/Units 17:27 20:59 11:32 POC Glucose (mg/dL) 143 H 127 H 111 H (75-99) mg/dL Microbiology - Last 24 Hours (Table) 09/09/18 11:22 Blood Culture - Preliminary Blood No Growth after 72 hours Assessment and Plan Assessment: 62-year-old female with a history of a right temporal lobe glioblastoma. New symptoms of UTI, urinary retention, back pain, and confusion. Plan: Glioblastoma: S/P resection, chemoradiation, and adjuvant temodar based chemotherapy. MRI of brain to be performed tomorrow to determine tumor status. Previous MRI's have been stable. 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 Patient likely unfit for CSF analysis at this time, but disease progression at this site would explain lumbar back pain and urinary retention. It does portend a very poor prognosis. - Steroids initiated - Pain better controlled with narcotic medications - Consider palliative XRT if patient clinically improves, but no inpatient intervention at this time
--- NOTE | 2018-09-15 15:04 | P.PN ---
Subjective Progress Note Date: 09/15/18 Asya is a 63-year-old white female well-known to me. She has a history of glioblastoma multiforme he. She currently is undergoing chemotherapy with hematology/oncology. She was recently tapered off steroids for appetite and pain control. Her reports a several day history of worsening urinary f requency prompting an ER visit on September 07. He received IV antibiotics were sent home. There was evidence of dehydration that visit too. She returns to the emergency room 09/09/2018 with increasing weakness and some confusion and fatigue. The emergency urinalysis showed occasional yeast, many bacteria, 22 WBCs per high-powered field. Positive large leukocyte esterase. Cultures reveal positive Klebsiella. She was placed on Rocephin. She is been restarted on diet and takes medications of Keppra. Her DVT treatment medication of Elequis. Due to ongoing thoracic back pain, she is on [place] and Dilaudid was ordered for breakthrough pain. Currently she is somewhat improved. Her and daughter her bedside. She continues to have some urinary urgency. She denies any chest pains, pressures, or shortness of breath this time. He denies any nausea or vomiting. report much better appetite today. 09/11/2018 Weak, nauseated.Complains of worsening back pain. Receiving Dilaudid IV push for breakthrough pain . Lumbar spine MRI pending.chest x-ray suggestive of COPD with diffuse osteopenia noted, degenerative changes spine, arterial sclerotic change aorta. Denies any chest pain, palpitations or shortness of breath. Denies any headache. Maintained on IV Rocephin .Preliminary Blood cultures and urine Culture negative. Afebrile. Neurology consulted with recommendations pending. VSS, maintaining O2 sats in the mid 90s on room air. 09/12/2018 lumbar spine MRI reporting multiple enhancing nodules within the cauda equina and within the spinal canal posterior to L3 and L4 levels, additional posterior to the L1 and T12 levels, additional enhancing lesion in the L5-S1 spinal canal, small lesion possibly an anterior T11-T12 spinal canal space, Disc desiccation present throughout lumbar spine, foramen patent, no large disc herniations; compatible with drop metastasis. Discussed findings with both patient and spouse at the bedside with further recommendations/options pending from oncology. Mild reaction of rash after MRI with contrast yesterday with no airway involvement. Brain MRI rescheduled for tomorrow with anaphylaxis premedication. Radiation oncology consulted. Neurology consult in place with recommendations pending. Final urine culture reporting no growth. 09/13/2018 yesterday Dilaudid added back to pain med regime for breakthrough head and spine/lumbar pain; now presenting with recurrent lethargy. Chest CT performed yesterday afternoon reporting no metastatic disease identified in the chest, atelectasis with bandlike nodular subpleural atelectasis posterior right base, COPD with mild emphysema. Brain MRI scheduled for today. Labs pending. Afebrile. Urinary retention, Eng placed last night. Evaluated by neurology with recommendations noted. 09/14/2018 Brain MRI reporting new right cerebellar lesion causing significant mass effect and midline shift to reflect residual or recurrent tumor. Dr. Sr, oncology,spoke with patient and spouse regarding options. Family meeting with Oncology DENTAL PROFESSIONAL pending. More family enroute. Patient unable to swallow pills, pocketing. Medications further adjusted with Dilaudid frequency increased. 09/15/2018 hospice planning in progress. Hospice consult in place for today. Maintained on fentanyl patch, Dilaudid IV push, Ativan IV push, Decadron IV push for pain control. Continues to favor the right side with decreased coordination.VSS. Objective - Vital Signs Vital signs: Vital Signs Temp 98.3 F 09/15/18 04:57 Pulse 98 09/15/18 04:57 Resp 18 09/15/18 04:57 BP 160/98 09/15/18 04:57 Pulse Ox 97 09/15/18 04:57 Intake & Output 09/14/18 09/15/18 09/15/18 18:59 06:59 18:59 Intake Total 600 925 Output Total 1250 Balance -650 925 Intake: Intake, IV Titration 600 925 Amount Sodium Chloride 0.9% 1, 600 825 000 ml @ 75 mls/hr IV . [id number] [facility] Rx#:[id number] levETIRAcetam IV 1,000 mg 100 In Saline 1 100ml.bag @ 400 mls/hr IVPB Q12HR [facility] Rx#:[id number] Output: Urine 1250 Uretheral (Eng) 700 Other: Voiding Method Indwelling Catheter Indwelling Catheter - Exam GENERAL: Somnolent, and thin, weak, sleepy.Aert and oriented 2. No acute dist ress HEAD: Skull missing to the right frontotemporal lobe. EYES: extraocular movements intact, sclera anicteric, conjunctiva are normal. NECK: supple, no JVD LUNGS: Unlabored, Breath sounds bilaterally coarse. No wheezes rales or rhonchi. HEART: Regular rate and rhythm without murmurs, rubs or gallops.S1,S2 Normal, occasional mild tachycardia ABDOMEN: Soft, nondistended, normoactive bowel sounds. No guarding, no rebound. No masses appreciated. EXTREMITIES: no pitting or edema. No clubbing or cyanosis. NEUROLOGICAL: Increasing generalized weakness, favoring right side. decreased coordination . SKIN: Warm, Dry, normal turgor, no rashes or lesions noted. - Labs CBC & Chem 7: 09/13/18 08:12 09/13/18 08:12 Labs: Abnormal Lab Results - Last 24 Hours (Table) 09/14/18 09/14/18 09/14/18 Range/Units 12:46 17:08 20:40 POC Glucose (mg/dL) 117 H 102 H 122 H (75-99) mg/dL 09/15/18 Range/Units 06:57 POC Glucose (mg/dL) 105 H (75-99) mg/dL Microbiology - Last 24 Hours (Table) 09/09/18 11:22 Blood Culture - Preliminary Blood No Growth after 120 hours Assessment and Plan Assessment: (1) Recurrent UTI with urinary retention Current Visit: Yes Status: Acute Code(s): N39.0 - URINARY TRACT INFECTION, SITE NOT SPECIFIED SNOMED Code(s): 857693054 (2) Debility, multifactorial Current Visit: Yes Status: Acute Code(s): R53.81 - OTHER MALAISE SNOMED Code(s): 29891468 (3) Personal history of chemotherapy Current Visit: Yes Status: Acute Code(s): Z92.21 - PERSONAL HISTORY OF ANTINEOPLASTIC CHEMOTHERAPY SNOMED Code(s): 667809315540590 (4) History of radiation therapy Current Visit: Yes Status: Acute Code(s): Z92.3 - PERSONAL HISTORY OF IRRADIATION SNOMED Code(s): 940796250 (5) Back pain. Lumbar spine suggestive of drop metastasis. Current Visit: Yes Status: Acute Code(s): M54.9 - DORSALGIA, UNSPECIFIED SNOMED Code(s): 544776046 (6) Failure of outpatient treatment Current Visit: Yes Status: Acute Code(s): Z78.9 - OTHER SPECIFIED HEALTH STATUS SNOMED Code(s): 884664990 (7) History of brain cancer, glioblastoma multiforme, status post surgical resection. Recurrent right cerebellar tumor suggested per MRI. Current Visit: Yes Status: Acute Code(s): Z85.841 - PERSONAL HISTORY OF MAL IGNANT NEOPLASM OF BRAIN SNOMED Code(s): 320073251 (8) Weakness, secondary to drop metastasis. Current Visit: Yes Status: Acute Code(s): R53.1 - WEAKNESS SNOMED Code(s): 94515832 (9) metabolic encephalopathy, multifactorial, secondary to possibly recurrent UTI, metastases,Ca. (10) no code, no CPR, no intubation Plan: Continue on current medication regime ,monitoring and symptomatic treatment. Hospice consult in place, pending. Pain management. Prognosis guarded given multiple complex medical issues. The impression and plan of care has been dictated as directed. : I performed a history and examination of this patient, discussed the same with the dictator. I agree with the dictator's note ,documented as a scribe. Any ad ditional findings or plans will be noted.
[2018-09-15] MEDS ORDERED: SENNOSIDES 8.6 MG TAB PO PRN (16:31)
[2018-09-15] MEDS ORDERED: BISACODYL 10 MG SUPP RECTAL PRN (16:33)
[2018-09-15] MEDS: POLYETHYLENE GLYCOL 3350 17 GM POWD.PACK PO SCH (18:15)
[2018-09-15] MEDS: LORazepam 0.5 MG TAB PO SCH (22:32)
[2018-09-15] MEDS: DOCUSATE 100 MG CAP PO SCH (22:33)
[2018-09-16] MEDS: DEXAMETHASONE SOD PHOSPHATE 4 MG/ML 1 ML VIAL IV SCH ×5 (01:12→23:45)
[2018-09-16] MEDS: HYDROmorphone 0.5 MG/0.5 ML SYRINGE IVP PRN ×7 (01:13→22:36)
[2018-09-16] MEDS: SODIUM CHLORIDE 0.9% 1,000 ML IV SCH (01:43)
[2018-09-16] MEDS: LORazepam 0.5 MG TAB PO SCH ×2 (08:11→22:36)
[2018-09-16] MEDS: DOCUSATE 100 MG CAP PO SCH ×2 (08:11→22:36)
[2018-09-16] MEDS: POLYETHYLENE GLYCOL 3350 17 GM POWD.PACK PO SCH (08:12)
[2018-09-16] MEDS: levETIRAcetam IV 1,000 MG in SALINE 1 100ML.BAG IVPB SCH ×2 (09:19→22:36)
--- NOTE | 2018-09-16 11:03 | P.PN ---
Nitish Sky is a 63-year-old white female well-known to me. She has a history of glioblastoma multiforme he. She currently is undergoing chemotherapy with hematology/oncology. She was recently tapered off steroids for appetite and pain control. Her reports a several day history of worsening urinary frequency prompting an ER visit on September 07. He received IV antibiotics were sent home. There was evidence of dehydration that visit too. She returns to the emergency room 09/09/2018 with increasing weakness and some confusion and fatigue. The emergency urinalysis showed occasional yeast, many bacteria, 22 WBCs per high-powered field. Positive large leukocyte esterase. Cultures reveal positive Klebsiella. She was placed on Rocephin. She is been restarted on diet and takes medications of Keppra. Her DVT treatment medication of Eleq uis. Due to ongoing thoracic back pain, she is on [place] and Dilaudid was ordered for breakthrough pain. Currently she is somewhat improved. Her and daughter her bedside. She continues to have some urinary urgency. She denies any chest pains, pressures, or shortness of breath this time. He denies any nausea or vomiting. report much better appetite today. 09/11/2018 Weak, nauseated.Complains of worsening back pain. Receiving Dilaudid IV push for breakthrough pain . Lumbar spine MRI pending.chest x-ray suggestive of COPD with diffuse osteopenia noted, degenerative changes spine, arterial sclerotic change aorta. Denies any chest pain, palpitations or shortness of breath. Denies any headache. Maintained on IV Rocephin .Preliminary Blood cultures and urine Culture negative. Afebrile. Neurology consulted with recommendations pending. VSS, maintaining O2 sats in the mid 90s on room air. 09/12/2018 lumbar spine MRI reporting multiple enhancing nodules within the cauda equina and within the spinal canal posterior to L3 and L4 levels, additional posterior to the L1 and T12 levels, additional enhancing lesion in the L5-S1 spinal canal, small lesion possibly an anterior T11-T12 spinal canal space, Disc desiccation present throughout lumbar spine, foramen patent, no large disc herniations; compatible with drop metastasis. Discussed findings with both patient and spouse at the bedside with further recommendations/options pending from oncology. Mild reaction of rash after MRI with contrast yesterday with no airway involvement. Brain MRI rescheduled for tomorrow with anaphylaxis premedication. Radiation oncology consulted. Neurology consult in place with recommendations pending. Final urine culture reporting no growth. 09/13/2018 yesterday Dilaudid added back to pain med regime for breakthrough head and spine/lumbar pain; now presenting with recurrent lethargy. Chest CT performed yesterday afternoon reporting no metastatic disease identified in the chest, atelectasis with bandlike nodular subpleural atelectasis posterior right base, COPD with mild emphysema. Brain MRI scheduled for today. Labs pending. Afebrile. Urinary retention, Eng placed last night. Evaluated by neurology with recommendations noted. 09/14/2018 Brain MRI reporting new right cerebellar lesion causing significant mass effect and midline shift to reflect residual or recurrent tumor. Dr. Sr, oncology,spoke with patient and spouse regarding options. Family meeting with Oncology ELECTRONIC TEST TECHNICIAN pending. More family enroute. Patient unable to swallow pills, pocketing. Medications further adjusted with Dilaudid frequency increased. 09/15/2018 hospice planning in progress. Hospice consult in place for today. Maintained on fentanyl patch, Dilaudid IV push, Ativan IV push, Decadron IV push for pain control. 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 09/16/2018: Patient is resting comfortably and feeling a bit improved. She remains on Decadron for swelling, morphine, fentanyl patch, Dilaudid for pain control, Ativan for anxiety, Keppra for seizure prevention. She reports having a bowel movement. She is tolerating a diet with some nausea 2. [facility]. We'll make plans appropriately. Patient is awake alert today. Objective - Vital Signs Vital signs: Vital Signs Temp 98.2 F 09/16/18 05:00 Pulse 82 09/16/18 05:00 Resp 16 09/16/18 05:00 BP 153/95 09/16/18 05:00 Pulse Ox 92 L 09/16/18 08:16 Intake & Output 09/15/18 09/16/18 09/16/18 18:59 06:59 18:59 Intake Total 325 Output Total 2400 1900 Balance -2400 -1575 Weight 58.967 kg Intake: Intake, IV Titration 325 Amount Sodium Chloride 0.9% 1, 225 000 ml @ 75 mls/hr IV . [id number] [facility] Rx#:[id number] levETIRAcetam IV 1,000 mg 100 In Saline 1 100ml.bag @ 400 mls/hr IVPB Q12HR [facility] Rx#:[id number] Oral 0 Output: Urine 2400 1900 Uretheral (Eng) 1900 1900 Other: Voiding Method Indwelling Catheter Indwelling Catheter - Exam GENERAL: Somnolent, and thin, weak, sleepy.Aert and oriented 2. No acute distress HEAD: Skull missing to the right frontotemporal lobe. NECK: supple, no JVD LUNGS: Unlabored, Breath sounds bilaterally coarse. No wheezes rales or rhonchi. HEART: Regular rate and rhythm without murmurs, rubs or gallops.S1,S2 Normal, occasional mild tachycardia ABDOMEN: Soft, nondistended, normoactive bowel sounds. No guarding, no rebound. No masses appreciated. Minimal tenderness to the suprapubic area. EXTREMITIES: no pitting or edema. No clubbing or cyanosis. NEUROLOGICAL: Increasing generalized weakness, favoring right side. decreased coordination . SKIN: Warm, Dry, normal turgor, no rashes or lesions noted. - Labs CBC & Chem 7: 09/13/18 08:12 09/13/18 08:12 Labs: Microbiology - Last 24 Hours (Table) 09/09/18 11:22 Blood Culture - Final Blood No Growth after 144 hours Assessment and Plan (1) Recurrent UTI Current Visit: Yes Status: Acute Code(s): N39.0 - URINARY TRACT INFECTION, SITE NOT SPECIFIED SNOMED Code(s): 642542572 (2) Debility Current Visit: Yes Status: Acute Code(s): R53.81 - OTHER MALAISE SNOMED Code(s): 13652738 (3) Personal history of chemotherapy Current Visit: Yes Status: Acute Code(s): Z92.21 - PERSONAL HISTORY OF ANTINEOPLASTIC CHEMOTHERAPY SNOMED Code(s): 952047160303688 (4) History of radiation therapy Current Visit: Yes Status: Acute Code(s): Z92.3 - PERSONAL HISTORY OF IRRADI ATION SNOMED Code(s): 133108673 (5) Back pain Current Visit: Yes Status: Acute Code(s): M54.9 - DORSALGIA, UNSPECIFIED SNOMED Code(s): 447570614 (6) Failure of outpatient treatment Current Visit: Yes Status: Acute Code(s): Z78.9 - OTHER SPECIFIED HEALTH STATUS SNOMED Code(s): 401738376 (7) History of brain cancer Current Visit: Yes Status: Acute Code(s): Z85.841 - PERSONAL HISTORY OF MALIGNANT NEOPLASM OF BRAIN SNOMED Code(s): 897194933 (8) Weakness Current Visit: Yes Status: Acute Code(s): R53.1 - WEAKNESS SNOMED Code(s): 59306279 (9) Glioblastoma multiforme of cerebellum Current Visit: Yes Status: Acute Code(s): C71.6 - MALIGNANT NEOPLASM OF CEREBELLUM SNOMED Code(s): 40605693 (10) Glioblastoma multiforme of central nervous system Current Visit: Yes Status: Acute Code(s): C72.9 - MALIGNANT NEOPLASM OF CENTRAL NERVOUS SYSTEM, UNSPECIFIED SNOMED Code(s): 721903485164035 Plan: Remain on her current medications. We'll plan for [facility] hospice She'll be reevaluated next 24 hours.
[2018-09-16] MEDS ORDERED: ARTIFICIAL TEARS-HYPROMELLOSE DROPS 15 ML BTL BOTH EYES PRN (13:55)
[2018-09-17] MEDS: HYDROmorphone 0.5 MG/0.5 ML SYRINGE IVP PRN ×2 (00:55→05:44)
[2018-09-17] MEDS: SODIUM CHLORIDE 0.9% 1,000 ML IV SCH (05:44)
[2018-09-17] MEDS: DEXAMETHASONE SOD PHOSPHATE 4 MG/ML 1 ML VIAL IV SCH ×4 (05:45→23:01)
[2018-09-17] MEDS: levETIRAcetam IV 1,000 MG in SALINE 1 100ML.BAG IVPB SCH ×2 (08:06→19:55)
[2018-09-17] MEDS: MORPHINE CONC SOLN 10mg/0.5mL ORAL SYRG SL PRN ×4 (08:06→21:40)
[2018-09-17] MEDS: DOCUSATE 100 MG CAP PO SCH ×2 (08:06→19:55)
[2018-09-17] MEDS: LORazepam 0.5 MG TAB PO SCH ×2 (08:07→19:55)
[2018-09-17] MEDS: POLYETHYLENE GLYCOL 3350 17 GM POWD.PACK PO SCH (10:26)
[2018-09-17] MEDS ORDERED: NA PHOS,M-B/NA PHOS,DI-BA 133 ML ENEMA RECTAL STA (11:26)
--- NOTE | 2018-09-17 11:43 | P.PN ---
Nitish Sky is a 63-year-old white female well-known to me. She has a history of glioblastoma multiforme he. She currently is undergoing chemotherapy with hematology/oncology. She was recently tapered off steroids for appetite and pain control. Her reports a several day history of worsening urinary frequency prompting an ER visit on September 07. He received IV antibiotics were sent home. There was evidence of dehydration that visit too. She returns to the emergency room 09/09/2018 with increasing weakness and some confusion and fatigue. The emergency urinalysis showed occasional yeast, many bacteria, 22 WBCs per high-powered field. Positive large leukocyte esterase. Cultures reveal positive Klebsiella. She was placed on Rocephin. She is been restarted on diet and takes medications of Keppra. Her DVT treatment medication of Eleq uis. Due to ongoing thoracic back pain, she is on [place] and Dilaudid was ordered for breakthrough pain. Currently she is somewhat improved. Her and daughter her bedside. She continues to have some urinary urgency. She denies any chest pains, pressures, or shortness of breath this time. He denies any nausea or vomiting. report much better appetite today. 09/11/2018 Weak, nauseated.Complains of worsening back pain. Receiving Dilaudid IV push for breakthrough pain . Lumbar spine MRI pending.chest x-ray suggestive of COPD with diffuse osteopenia noted, degenerative changes spine, arterial sclerotic change aorta. Denies any chest pain, palpitations or shortness of breath. Denies any headache. Maintained on IV Rocephin .Preliminary Blood cultures and urine Culture negative. Afebrile. Neurology consulted with recommendations pending. VSS, maintaining O2 sats in the mid 90s on room air. 09/12/2018 lumbar spine MRI reporting multiple enhancing nodules within the cauda equina and within the spinal canal posterior to L3 and L4 levels, additional posterior to the L1 and T12 levels, additional enhancing lesion in the L5-S1 spinal canal, small lesion possibly an anterior T11-T12 spinal canal space, Disc desiccation present throughout lumbar spine, foramen patent, no large disc herniations; compatible with drop metastasis. Discussed findings with both patient and spouse at the bedside with further recommendations/options pending from oncology. Mild reaction of rash after MRI with contrast yesterday with no airway involvement. Brain MRI rescheduled for tomorrow with anaphylaxis premedication. Radiation oncology consulted. Neurology consult in place with recommendations pending. Final urine culture reporting no growth. 09/13/2018 yesterday Dilaudid added back to pain med regime for breakthrough head and spine/lumbar pain; now presenting with recurrent lethargy. Chest CT performed yesterday afternoon reporting no metastatic disease identified in the chest, atelectasis with bandlike nodular subpleural atelectasis posterior right base, COPD with mild emphysema. Brain MRI scheduled for today. Labs pending. Afebrile. Urinary retention, Eng placed last night. Evaluated by neurology with recommendations noted. 09/14/2018 Brain MRI reporting new right cerebellar lesion causing significant mass effect and midline shift to reflect residual or recurrent tumor. Dr. Sr, oncology,spoke with patient and spouse regarding options. Family meeting with Oncology WASTE HANDLING TECHNICIAN pending. More family enroute. Patient unable to swallow pills, pocketing. Medications further adjusted with Dilaudid frequency increased. 09/15/2018 hospice planning in progress. Hospice consult in place for today. Maintained on fentanyl patch, Dilaudid IV push, Ativan IV push, Decadron IV push for pain control. Continues to favor the right side with decreased pastry cook helper rdination.VSS. 09/16/2018: Patient is resting comfortably and feeling a bit improved. She remains on Decadron for swelling, morphine, fentanyl patch, Dilaudid for pain control, Ativan for anxiety, Keppra for seizure prevention. She reports having a bowel movement. She is tolerating a diet with some nausea 2. The decided [facility]. We'll make plans appropriately. Patient is awake alert today. 09/17/2018: Patient resting comfortably. [facility] [facility] The one-time contract the hospital. She is tolerating oral pain medications. Pain is controlled. She is awake and talking to her . Objective - Vital Signs Vital signs: Vital Signs Temp 98.1 F 09/17/18 04:41 Pulse 92 09/17/18 04:41 Resp 16 09/17/18 04:41 BP 125/75 09/17/18 04:41 Pulse Ox 93 L 09/17/18 04:41 Intake & Output 09/16/18 09/17/18 09/17/18 18:59 06:59 18:59 Intake Total 1180 Output Total 2225 900 Balance -2225 280 Intake: Oral 1180 Output: Urine 2225 900 Uretheral (Eng) 1400 900 Other: Voiding Method Indwelling Catheter Indwelling Catheter Indwelling Catheter # Voids 1 - Exam GENERAL: Somnolent, and thin, weak, sleepy.Aert and oriented 2. No acute distress HEAD: Skull missing to the right frontotemporal lobe. NECK: supple, no JVD LUNGS: Unlabored, Breath sounds bilaterally coarse. No wheezes rales or rhonchi. HEART: Regular rate and rhythm without murmurs, rubs or gallops.S1,S2 Normal, occasional mild tachycardia Further exam deferred - Labs CBC & Chem 7: 09/13/18 08:12 09/13/18 08:12 Assessment and Plan (1) Recurrent UTI Current Visit: Yes Status: Acute Code(s): N39.0 - URINARY TRACT INFECTION, SITE NOT SPECIFIED SNOMED Code(s): 203875919 (2) Debility Current Visit: Yes Status: Acute Code(s): R53.81 - OTHER MALAISE SNOMED Code(s): 75506854 (3) Personal history of chemotherapy Current Visit: Yes Status: Acute Code(s): Z92.21 - PERSONAL HISTORY OF ANTINEOPLASTIC CHEMOTHERAPY SNOMED Code(s): 967018750241204 (4) History of radiation therapy Current Visit: Yes Status: Acute Code(s): Z92.3 - PERSONAL HISTORY OF IRRADIATION SNOMED Code(s): 120874327 (5) Back pain Current Visit: Yes Status: Acute Code(s): M54.9 - DORSALGIA, UNSPECIFIED SNOMED Code(s): 836803899 (6) Failure of outpatient treatment Current Visit: Yes Status: Acute Code(s): Z78.9 - OTHER SPECIFIED HEALTH STATUS SNOMED Code(s): 351515066 (7) History of brain cancer Current Visit: Yes Status: Acute Code(s): Z85.841 - PERSONAL HISTORY OF MALIGNANT NEOPLASM OF BRAIN SNOMED Code(s): 988179519 (8) Weakness Current Visit: Yes Status: Acute Code(s): R53.1 - WEAKNESS SNOMED Code(s): 87279477 (9) Glioblastoma multiforme of cerebellum Current Visit: Yes Status: Acute Code(s): C71.6 - MALIGNANT NEOPLASM OF CEREBELLUM SNOMED Code(s): 32422261 (10) Glioblastoma multiforme of central nervous system Current Visit: Yes Status: Acute Code(s): C72.9 - MALIGNANT NEOPLASM OF CENTRAL NERVOUS SYSTEM, UNSPECIFIED SNOMED Code(s): 088511782928636 Plan: Remain on her current medications. [facility] in 1 day She'll be reevaluated next 24 hours.
[2018-09-18] MEDS: DEXAMETHASONE SOD PHOSPHATE 4 MG/ML 1 ML VIAL IV SCH ×2 (04:59→11:37)
[2018-09-18 05:29] VITALS: BP 125/84; PULSE 73; TEMP 97.9
[2018-09-18] MEDS: MORPHINE CONC SOLN 10mg/0.5mL ORAL SYRG SL PRN ×4 (08:04→18:56)
[2018-09-18] MEDS: DOCUSATE 100 MG CAP PO SCH (08:04)
[2018-09-18] MEDS: LORazepam 0.5 MG TAB PO SCH (08:04)
[2018-09-18] MEDS: levETIRAcetam IV 1,000 MG in SALINE 1 100ML.BAG IVPB SCH (08:07)
[2018-09-18] MEDS: POLYETHYLENE GLYCOL 3350 17 GM POWD.PACK PO SCH (08:08)
--- NOTE | 2018-09-18 15:54 | P.PN ---
Subjective Progress Note Date: 09/18/18 Asya is a 63-year-old white female well-known to me. She has a history of glioblastoma multiforme he. She currently is undergoing chemotherapy with hematology/oncology. She was recently tapered off steroids for appetite and pain control. Her reports a several day history of worsening urinary f requency prompting an ER visit on September 07. He received IV antibiotics were sent home. There was evidence of dehydration that visit too. She returns to the emergency room 09/09/2018 with increasing weakness and some confusion and fatigue. The emergency urinalysis showed occasional yeast, many bacteria, 22 WBCs per high-powered field. Positive large leukocyte esterase. Cultures reveal positive Klebsiella. She was placed on Rocephin. She is been restarted on diet and takes medications of Keppra. Her DVT treatment medication of [place]. Due to ongoing thoracic back pain, she is on [place] and Dilaudid was ordered for breakthrough pain. Currently she is somewhat improved. Her and daughter her bedside. She continues to have some urinary urgency. She denies any chest pains, pressures, or shortness of breath this time. He denies any nausea or vomiting. report much better appetite today. 09/11/2018 Weak, nauseated.Complains of worsening back pain. Receiving Dilaudid IV push for breakthrough pain . Lumbar spine MRI pending.chest x-ray suggestive of COPD with diffuse osteopenia noted, degenerative changes spine, arterial sclerotic change aorta. Denies any chest pain, palpitations or shortness of breath. Denies any headache. Maintained on IV Rocephin .Preliminary Blood cultures and urine Culture negative. Afebrile. Neurology consulted with recommendations pending. VSS, maintaining O2 sats in the mid 90s on room air. 09/12/2018 lumbar spine MRI reporting multiple enhancing nodules within the cauda equina and within the spinal canal posterior to L3 and L4 levels, additional posterior to the L1 and T12 levels, additional enhancing lesion in the L5-S1 spinal canal, small lesion possibly an anterior T11-T12 spinal canal space, Disc desiccation present throughout lumbar spine, foramen patent, no large disc herniations; compatible with drop metastasis. Discussed findings with both patient and spouse at the bedside with further recommendations/options pending from oncology. Mild reaction of rash after MRI with contrast yesterday with no airway involvement. Brain MRI rescheduled for tomorrow with anaphylaxis premedication. Radiation oncology consulted. Neurology consult in place with recommendations pending. Final urine culture reporting no growth. 09/13/2018 yesterday Dilaudid added back to pain med regime for breakthrough head and spine/lumbar pain; now presenting with recurrent lethargy. Chest CT performed yesterday afternoon reporting no metastatic disease identified in the chest, atelectasis with bandlike nodular subpleural atelectasis posterior right base, COPD with mild emphysema. Brain MRI scheduled for today. Labs pending. Afebrile. Urinary retention, Eng placed last night. Evaluated by neurology with recommendations noted. 09/14/2018 Brain MRI reporting new right cerebellar lesion causing significant mass effect and midline shift to reflect residual or recurrent tumor. Dr. Sr, oncology,spoke with patient and spouse regarding options. Family meeting with Oncology TRACK REPAIR PERSON pending. More family enroute. Patient unable to swallow pills, pocketing. Medications further adjusted with Dilaudid frequency increased. 09/15/2018 hospice planning in progress. Hospice consult in place for today. Maintained on fentanyl patch, Dilaudid IV push, Ativan IV push, Decadron IV push for pain control. Continues to favor the right side with decreased coordination.VSS. 09/16/2018: Patient is resting comfortably and feeling a bit improved. She remains on Decadron for swelling, morphine, fentanyl patch, Dilaudid for pain control, Ativan for anxiety, Keppra for seizure prevention. She reports having a bowel movement. She is tolerating a diet with some nausea 2. The decided [facility] hospice. We'll make plans appropriately. Patient is awake alert today. 09/17/2018: Patient resting comfortably. [place] hosp[facility] is planned for tomorrow. The one-time contract the hospital. She is tolerating oral pain medications. Pain is controlled. She is awake and talking to her husban 09/18/2018 hospice company changed to [facility] with visit pending. Pain controlled on current regimen. Patient is awake, talking with . Plan is for discharge home with hospice tomorrow. Objective - Vital Signs Vital signs: Vital Signs Temp 97.9 F 09/18/18 05:00 Pulse 73 09/18/18 05:00 Resp 16 09/18/18 05:00 BP 125/84 09/18/18 05:00 Pulse Ox 99 09/18/18 13:26 Intake & Output 09/17/18 09/18/18 09/18/18 18:59 06:59 18:59 Intake Total 680 60 Output Total 825 2325 Balance -145 -2265 Intake: Intake, IV Titration 340 60 Amount Sodium Chloride 0.9% 1, 240 60 000 ml @ 20 mls/hr IV . Q24H S[facility] Rx#:[id number] levETIRAcetam IV 1,000 mg 100 In Saline 1 100ml.bag @ 400 mls/hr IVPB Q12HR S[facility]RINA Rx#:[id number] Oral 340 Output: Urine 825 2325 Uretheral (Eng) 1500 Other: Voiding Method Indwelling Catheter Indwelling Catheter Indwelling Catheter # Voids 1 1 # Bowel Movements 1 - Exam GENERAL: Somnolent, and thin, weak, sleepy.Aert and oriented 2. No acute distress HEAD: Skull missing to the right frontotemporal lobe. NECK: supple, no JVD LUNGS: Unlabored, Breath sounds bilaterally coarse. No wheezes rales or rhonchi. HEART: Regular rate and rhythm without murmurs, rubs or gallops.S1,S2 Normal Further exam deferred - Labs CBC & Chem 7: 09/13/18 08:12 09/13/18 08:12 Assessment and Plan Assessment: (1) Recurrent UTI with urinary retention Current Visit: Yes Status: Acute Code(s): N39.0 - URINARY TRACT INFECTION, SITE NOT SPECIFIED SNOMED Code(s): 755893186 (2) Debility, multifactorial Current Visit: Yes Status: Acute Code(s): R53.81 - OTHER MALAISE SNOMED Code(s): 37976530 (3) Personal history of chemotherapy Current Visit: Yes Status: Acute Code(s): Z92.21 - PERSONAL HISTORY OF ANTINEOPLASTIC CHEMOTHERAPY SNOMED Code(s): 293548309595715 (4) History of radiation therapy Current Visit: Yes Status: Acute Code(s): Z92.3 - PERSONAL HISTORY OF IRRADIATION SNOMED Code(s): 129664359 (5) Back pain. Lumbar spine suggestive of drop metastasis. Current Visit: Yes Status: Acute Code(s): M54.9 - DORSALGIA, UNSPECIFIED SNOMED Code(s): 694726291 (6) Failure of outpatient treatment Current Visit: Yes Status: Acute Code(s): Z78.9 - OTHER SPECIFIED HEALTH STATUS SNOMED Code(s): 399578532 (7) History of brain cancer, glioblastoma multiforme, status post surgical resection. Recurrent right cerebellar tumor suggested per MRI. Current Visit: Yes Status: Acute Code(s): Z85.841 - PERSONAL HISTORY OF MALIGNANT NEOPLASM OF BRAIN SNOMED Code(s): 373038823 (8) Weakness, secondary to drop metastasis. Current Visit: Yes Status: Acute Code(s): R53.1 - WEAKNESS SNOMED Code(s): 73306986 (9) metabolic encephalopathy, multifactorial, secondary to possibly recurrent UTI, metastases,Ca. (10) no code, no CPR, no intubation Plan: Continue on current medication regime ,monitoring and symptomatic treatment. Hospice visit pending. Pain management. Discharge planning in [facility] for home with hospice tomorrow .Prognosis guarded given multiple complex medical issues. The impression and plan of care has been dictated as directed. : I performed a history and examination of this patient, discussed the same with the dictator. I agree with the dictator's note ,documented as a scribe. Any additional findings or plans will be noted.
== END 2018-09-18 18:19 | disposition hospice, home (50) | DRG 689 ==
LOC: EC 10:26 → 3NMEDONC 12:11 → OBSVTOIN 09-11 13:00
PROVIDERS: ADMIT Family Medicine; ATTEND Family Medicine
DX: N13.6 Pyonephrosis (principal); G93.41 Metabolic encephalopathy; C79.49 Secondary malignant neoplasm of other parts of nervous system; G83.4 Cauda equina syndrome; C71.9 Malignant neoplasm of brain, unspecified; J98.11 Atelectasis; Z66 Do not resuscitate; Z51.5 Encounter for palliative care; R56.9 Unspecified convulsions; J43.9 Emphysema, unspecified; E86.0 Dehydration; B96.1 Klebsiella pneumoniae [K. pneumoniae] as the cause of diseases classified elsewhere; R33.9 Retention of urine, unspecified; R32 Unspecified urinary incontinence; R53.81 Other malaise; M54.5 Low back pain; M54.6 Pain in thoracic spine; Z92.21 Personal history of antineoplastic chemotherapy; Z92.3 Personal history of irradiation; Z79.01 Long term (current) use of anticoagulants; Z79.899 Other long term (current) drug therapy; Z86.718 Personal history of other venous thrombosis and embolism; Z86.61 Personal history of infections of the central nervous system; Z87.440 Personal history of urinary (tract) infections; Z87.891 Personal history of nicotine dependence; Z86.14 Personal history of Methicillin resistant Staphylococcus aureus infection; Z98.890 Other specified postprocedural states; Z88.0 Allergy status to penicillin; Z88.8 Allergy status to other drugs, medicaments and biological substances; Z80.8 Family history of malignant neoplasm of other organs or systems; Z80.6 Family history of leukemia
CPT/HCPCS: 36415; 70553; 71046; 71260; 72157; 72158; 80048; 80053; 81001; 82140; 83605; 83735; 84443; 84484; 85025; 85610; 85730; 87040; 87086; 94760; 96360; 99285

== ENCOUNTER 2018-09-18 18:21 | Inpatient (IN) | payer OTHER ==
[2018-09-18] MEDS ORDERED: LORazepam 2 MG/ML INJ IV PRN (19:16)
[2018-09-18] MEDS: levETIRAcetam IV 1,000 MG in SALINE 1 100ML.BAG IVPB SCH (20:22)
[2018-09-18] MEDS: MORPHINE CONC SOLN 10mg/0.5mL ORAL SYRG SL PRN (22:58)
[2018-09-18] MEDS: DEXAMETHASONE SOD PHOSPHATE 4 MG/ML 1 ML VIAL IV SCH (22:58)
[2018-09-19] MEDS: MORPHINE CONC SOLN 10mg/0.5mL ORAL SYRG SL PRN ×3 (05:34→14:38)
[2018-09-19] MEDS: DEXAMETHASONE SOD PHOSPHATE 4 MG/ML 1 ML VIAL IV SCH ×2 (05:36→12:50)
[2018-09-19] MEDS ORDERED: levETIRAcetam ORAL SOLN 500 MG/5 ML CUP PO SCH (09:15)
[2018-09-19] MEDS: levETIRAcetam IV 1,000 MG in SALINE 1 100ML.BAG IVPB SCH (14:23)
== END 2018-09-19 14:40 | disposition hospice, home (50) | DRG 951 ==
LOC: 3NMEDONC 18:21
PROVIDERS: ADMIT Family Medicine; ATTEND Family Medicine
DX: Z51.5 Encounter for palliative care (principal); G93.41 Metabolic encephalopathy; C79.51 Secondary malignant neoplasm of bone; C79.31 Secondary malignant neoplasm of brain; G40.802 Other epilepsy, not intractable, without status epilepticus; N39.0 Urinary tract infection, site not specified; F41.9 Anxiety disorder, unspecified; J44.9 Chronic obstructive pulmonary disease, unspecified; Z92.3 Personal history of irradiation; Z92.21 Personal history of antineoplastic chemotherapy; Z86.718 Personal history of other venous thrombosis and embolism; Z86.14 Personal history of Methicillin resistant Staphylococcus aureus infection; Z98.890 Other specified postprocedural states; Z87.891 Personal history of nicotine dependence; Z80.9 Family history of malignant neoplasm, unspecified; Z80.7 Family history of other malignant neoplasms of lymphoid, hematopoietic and related tissues; Z79.01 Long term (current) use of anticoagulants; Z79.899 Other long term (current) drug therapy; Z88.0 Allergy status to penicillin